=== PATIENT | female | born 1975 | race Asian ===

== ENCOUNTER 2021-12-26 19:41 | Inpatient (IN) ==
[2021-12-26 21:08] LABS: Hematocrit (blood only) 38.3 % (34.1-44.9); Hemoglobin 12.6 g/dl (12.0-16.0); Mean Corpuscular Hgb Conc 32.9 g/dL (32.0-36.0); Mean Corpuscular Volume 85.1 fL (80.0-100.0); Platelet Count 564 K/uL (130-400); RDW Coefficient of Variation 13.3 % (11.5-14.5); RDW Standard Deviation 41.1 fL (36.4-46.3); White Blood Count 13.56 K/ul (4.8-10.8)
[2021-12-26 21:18] LABS: Partial Thromboplastin Time 27.5 Seconds (21.0-31.0); Prothrombin Time 10.4 Seconds (9.0-12.0)
[2021-12-26 21:36] LABS: Albumin Globulin Ratio 1.1 (0.9-2); Albumin Level 4.1 gm/dl (3.4-5.0); BUN Creatinine Ratio 15.2 (10-20); Bilirubin,Total 0.3 mg/dl (0.2-1.0); Calcium 9.1 mg/dl (8.5-10.1); Est GFR (African American) 122.8 ml/min; Est GFR (Non-African American) 105.9 ml/min; Globulin 3.9 gm/dl (2.5-4.0); Potassium 3.5 mmol/L (3.5-5.1)
[2021-12-26] MEDS ORDERED: SODIUM CHLORIDE 0.9% 1000ML 1,000 ML IV ONE (23:42)
--- NOTE | 2021-12-26 23:59 | Emergency Department Note ---
Impression & Plan GI bleed, Colitis Admit to the [facility] ED Provider Note NAME: JOAN MICHAUD AGE: 46 SEX: F ARRIVES VIA: Walk-In INFORMANT: Patient through an repair clerk ED PROVIDER(S): Carol De Luna DO CHIEF COMPLAINT: Bloody stools and left lower quadrant abdominal pain PLAN: Disposition: Admit to the [facility] Condition: Stable MEDICAL DECISION MAKING: This is a 46-year-old female patient who presents to the emergency department with intermittent bloody stools for the past 4 weeks. The patient has since developed increased bloody diarrhea for the past 1 week and now has left lower quadrant abdominal pain. H&H are stable. The patient is tachycardic on physical exam. She received IV crystalloid therapy here in the emergency department. She declined wanting anything for pain. CT scan of the abdomen/pelvis showed colitis of the descending colon and rectosigmoid colon. Patient has no fever or significant leukocytosis to suggest an infectious etiology. This is most likely inflammatory. I discussed the case with the [facility] and they will evaluate the patient for further care. The patient is hemodynamically stable here in the emergency department. Triage Nursing notes reviewed and agree with them. Vital Signs: reviewed and remarkable for tachycardia Differential diagnosis: Hemorrhoidal bleeding, colitis, diverticulitis, anemia ER treatment provided: IV normal saline Diagnostics interpreted by me: Cardiac Monitoring: Sinus tachycardia at 113 Laboratory studies: [See below] [] Imaging studies: As per stat rad CT abdomen pelvis with contrast: Abnormal mucosal thickening and hyperenhancement with pericolonic fat stranding involving the splenic flexure, descending colon and distal rectosigmoid region. Findings are most consistent with inflammatory or infectious colitis. No significant diverticulosis. No evidence for bowel obstruction. No free intraperitoneal fluid or pneumoperitoneum. The liver, gallbladder, pancreas, spleen, adrenal glands and kidneys are unremarkable. The bladder is unremarkable. The uterus and adnexa are grossly unremarkable. The no osseous or significant overlying soft tissue abnormality identified. HPI: 46/F arrives for evaluation of []bloody diarrhea and left lower quadrant abdominal pain. The patient has had intermittent bloody stools for the past 4 weeks that she thought was secondary to hemorrhoids. She had no associated abdominal pain at that time. However over the past 1 to 2 weeks, the bloody stools have increased in frequency to the point now that she is having 2-3 bloody stools per day and now has some left lower quadrant abdominal pain. Last week, the patient took 5 days worth of Levaquin believing this may help the bloody stools as she thought that it could be bacterial in origin. ROS: See above HPI for pertinent positives & negatives. A total of 10 systems reviewed and were otherwise negative. PAST MEDICAL HISTORY:Epilepsy which has resolved according to the patient PAST SURGICAL HISTORY:See Below FAMILY HISTORY:See Below SOCIAL HISTORY: Patient speaks Mandarin Polish; she lives with her HOME MEDICATIONS:None ALLERGIES:Penicillin VITALS:See Below PHYSICAL EXAMINATION: HEENT: Head - normocephalic and atraumatic Pupils are equal, round, and reactive to light. Extraocular eye muscles are intact, and sclera are anicteric. Nose - moist nasal mucosa without discharge. Mouth - moist buccal mucosa. Oropharynx is nonerythematous and there is no tonsillar exudate or edema noted. Neck: Supple; no JVD, nuchal rigidity, cervical lymphadenopathy, or auscultated bruits. Heart: Regular rate and rhythm. There is a normal S1 and S2 with no murmurs, clicks, or gallops appreciated. Lungs: Clear to auscultation bilaterally with no wheezes, rales, or rhonchi. Abdomen: Soft, mild tenderness to palpation in the left lower quadrant, nondi stended with good bowel sounds. There are no palpable pulsatile masses or hepatosplenomegaly. There is no guarding, rigidity, or rebound noted. Extremities: No evidence of cyanosis, clubbing, or edema. There are easily palpable peripheral pulses. Skin: Pale, warm and slightly diaphoretic, with good turgor and no rashes. ED COURSE: Times/Reassessments: 2315: The patient was evaluated in room B 11. A complete history and physical was performed with the help of a [employer] repair clerk. An IV lock had been initiated and labs were drawn as above by protocol. An order was placed for continuous cardiac monitoring. The patient was in a sinus tachycardia at 113. The patient was bolused with a liter of normal saline solution. She will go for CT scan of the abdomen and pelvis. She declined wanting anything for pain. I discussed the case with the [facility] hospitalist and they will evaluate for further management. Carolcelestino De Luna DO Past Med/Surg History Social History Smoking Status: Never smoker Second Hand Exposure: No; Do You Dip or Chew Tobacco: No; Tobacco Cessation Education Requested by Patient: No Hx Alcohol Use: Yes Hx Substance Use: No Preferred Language: Mandarin Polish Communication Ability: Effective Grommet Man Required: No Beliefs That Will Affect Care: None marital status: Current Living Situation: Spouse Other Information That Helps Us Care for You: No Feels Safe at Home: Yes Safety Concerns: Feels Safe At This Time Assistive Devices: None Allergies Allergies Allergy/AdvReac Type Severity Reaction Status Date / Time Penicillins AdvReac Verified 12/27/21 11:02 Home Meds Home Medications Medication Instructions Recorded Confirmed No Known Home Medications 12/27/21 12/27/21 Results & Data (ED) Vital Signs Vital Signs - 24 hr 12/26/21 20:09 12/26/21 20:44 12/26/21 21:00 Temperature 36.8 C Temperature Source Temporal Artery Scan Pulse Rate 133 H Pulse Rate [Apical] 113 H Respiratory Rate 18 20 Respiratory Effort / Characteristics Non-Labored Spontaneous Non-Labored Spontaneous Respiratory Depth Normal Normal Respiratory Pattern Regular Blood Pressure 126/79 Blood Pressure [Left Arm] 123/78 Blood Pressure Mean 94 Blood Pressure Mean [Left Arm] 93 Blood Pressure Position Sitting Pulse Oximetry 97 97 98 Oxygen Delivery Method Room Air Room Air Room Air Sepsis Recent Fever Within 48 Hours No Sepsis New/Unexplained Change in Mental Status No Sepsis Action Taken by Nursing No Action Required 12/26/21 22:00 12/26/21 23:00 12/27/21 01:00 Temperature Temperature Source Pulse Rate Pulse Rate [Apical] 112 H 111 H 109 H Respiratory Rate 20 18 22 Respiratory Effort / Characteristics Non-Labored Spontaneous Respiratory Depth Normal Respiratory Pattern Regular Blood Pressure Blood Pressure [Left Arm] 116/87 132/78 125/63 Blood Pressure Mean Blood Pressure Mean [Left Arm] 96 96 83 Blood Pressure Position Pulse Oximetry 98 97 98 Oxygen Delivery Method Room Air Room Air Room Air Sepsis Recent Fever Within 48 Hours Sepsis New/Unexplained Change in Mental Status Sepsis Action Taken by Nursing 12/27/21 02:14 12/27/21 03:00 12/27/21 04:00 Temperature Temperature Source Pulse Rate Pulse Rate [Apical] 110 H 108 H 106 H Respiratory Rate 20 18 18 Respiratory Effort / Characteristics Respiratory Depth Respiratory Pattern Blood Pressure Blood Pressure [Left Arm] 129/85 123/84 96/76 L Blood Pressure Mean Blood Pressure Mean [Left Arm] 99 97 82 Blood Pressure Position Pulse Oximetry 97 96 97 Oxygen Delivery Method Room Air Room Air Room Air Sepsis Recent Fever Within 48 Hours Sepsis New/Unexplained Change in Mental Status Sepsis Action Taken by Nursing Laboratory Data Result diagrams: 12/27/21 14:26 12/27/21 07:36 Lab Results 12/26/21 12/26/21 12/26/21 Range/Units 20:46 20:46 20:46 WBC 13.56 H (4.8-10.8) K/ul RBC 4.50 (3.93-5.22) M/uL Hgb 12.6 (12.0-16.0) g/dl Hct 38.3 (34.1-44.9) % MCV 85.1 (80.0-100.0) fL MCH 28.0 (25.0-34.0) pg MCHC 32.9 (32.0-36.0) g/dL RDW Std Deviation 41.1 (36.4-46.3) fL RDW Coeff of Gregory 13.3 (11.5-14.5) % Plt Count 564 H (130-400) K/uL MPV 11.0 (9.4-12.3) fL PT 10.4 (9.0-12.0) Seconds INR 1.0 (0.9-1.1) APTT 27.5 (21.0-31.0) Seconds PTT Ratio 1.0 Sodium (136-145) mmol/L Potassium (3.5-5.1) mmol/L Chloride (98-107) mmol/L Carbon Dioxide (21-32) mmol/L Anion Gap (3-11) BUN (6-23) mg/dl Creatinine (0.6-1.2) mg/dl Est Cr Clr Drug Dosing ml/min Est GFR ( Amer) ml/min Est GFR (Non-Af Amer) ml/min BUN/Creatinine Ratio (10-20) Glucose (70-99(Fasting)) mg/dl Calcium (8.5-10.1) mg/dl Total Bilirubin (0.2-1.0) mg/dl AST (13-39) U/L ALT (7-52) U/L Alkaline Phosphatase (34-104) U/L Total Protein (6.0-8.3) gm/dl Albumin (3.4-5.0) gm/dl Globulin (2.5-4.0) gm/dl Albumin/Globulin Ratio (0.9-2) SARS-CoV-2, RNA, NAAT (NEGATIVE) Blood Type O Positive Antibody Screen NEGATIVE 12/26/21 12/27/21 Range/Units 20:46 03:35 WBC (4.8-10.8) K/ul RBC (3.93-5.22) M/uL Hgb (12.0-16.0) g/dl Hct (34.1-44.9) % MCV (80.0-100.0) fL MCH (25.0-34.0) pg MCHC (32.0-36.0) g/dL RDW Std Deviation (36.4-46.3) fL RDW Coeff of Gregory (11.5-14.5) % Plt Count (130-400) K/uL MPV (9.4-12.3) fL PT (9.0-12.0) Seconds INR (0.9-1.1) APTT (21.0-31.0) Seconds PTT Ratio Sodium 136 (136-145) mmol/L Potassium 3.5 (3.5-5.1) mmol/L Chloride 102 (98-107) mmol/L Carbon Dioxide 27 (21-32) mmol/L Anion Gap 7 (3-11) BUN 10 (6-23) mg/dl Creatinine 0.66 (0.6-1.2) mg/dl Est Cr Clr Drug Dosing 104.0 ml/min Est GFR ( Amer) 122.8 ml/min Est GFR (Non-Af Amer) 105.9 ml/min BUN/Creatinine Ratio 15.2 (10-20) Glucose 103 H (70-99(Fasting)) mg/dl Calcium 9.1 (8.5-10.1) mg/dl Total Bilirubin 0.3 (0.2-1.0) mg/dl AST 17 (13-39) U/L ALT 22 (7-52) U/L Alkaline Phosphatase 99 (34-104) U/L Total Protein 8.0 (6.0-8.3) gm/dl Albumin 4.1 (3.4-5.0) gm/dl Globulin 3.9 (2.5-4.0) gm/dl Albumin/Globulin Ratio 1.1 (0.9-2) SARS-CoV-2, RNA, NAAT NEGATIVE (NEGATIVE) Blood Type Antibody Screen Administered Medications Acetaminophen (Acetaminophen 325 Mg Tab) 650 mg PO Q4H PRN PRN Reason: Pain or Fever Stop: 01/26/22 05:14 Last Admin: 12/27/21 17:30 Dose: 650 mg Documented By: CARMITA Dextrose/Sodium Chloride (D5w And 1/2nss) 1,000 mls @ 125 mls/hr IV .Q8H KARLIE Stop: 01/26/22 05:14 Last Admin: 12/27/21 14:57 Dose: 125 mls/hr Documented By: Infusion: 12/27/21 13:38 Dose: 0 mls/hr Documented By: Admin: 12/27/21 05:38 Dose: 125 mls/hr Documented By: CARLENE Discontinued Medications Sodium Chloride (Nss 1000ml) 1,000 mls @ 999 mls/hr IV .Q1H1M ONE Stop: 12/27/21 00:42 Last Infusion: 12/27/21 01:49 Dose: 0 mls/hr Documented By: Admin: 12/27/21 00:21 Dose: 999 mls/hr Documented By: CARLENE Sodium Chloride (Nss) 500 mls @ 125 mls/hr IV .Q4H KARLIE Stop: 01/26/22 02:59 Last Infusion: 12/27/21 05:25 Dose: 0 mls/hr Documented By: Admin: 12/27/21 03:15 Dose: 125 mls/hr Documented By: CARLENE Potassium Chloride (K Timothy / Wtr) 10 meq in 100 mls @ 100 mls/hr IV Q1H KARLIE Stop: 12/27/21 17:59 Last Admin: 12/27/21 18:28 Dose: 75 mls/hr Documented By: Infusion: 12/27/21 18:25 Dose: 0 mls/hr Documented By: Admin: 12/27/21 16:30 Dose: 75 mls/hr Documented By: Infusion: 12/27/21 16:28 Dose: 0 mls/hr Documented By: Admin: 12/27/21 14:51 Dose: 100 mls/hr Documented By: PEG Ioversol (Optiray 300 100ml) 100 ml IV ONCE ONE Stop: 12/27/21 00:15 Last Admin: 12/27/21 00:14 Dose: 93 ml Documented By: BOZENA Imaging Data Radiologist's Impression: Abdomen/Pelvis CT 12/26/21 23:34 CT abd pelvis IV con only CLINICAL HISTORY: eval for diverticulitis TECHNIQUE: Helical axial images of the abdomen and pelvis were obtained and displayed. Automated dose lowering techniques and/or adjustment according to patient size were utilized for this exam. This exam was performed with intravenous contrast. CT DOSE: 383.39 mGy.cm COMPARISON: None available at the time of this dictation. FINDINGS: Lower chest: No acute abnormality Liver: Unremarkable. No focal lesions are seen. Gallbladder and biliary tree: No calcified gallstones. Normal caliber wall. No intra- or extrahepatic biliary ductal dilation. Pancreas: Unremarkable, no focal lesions. Spleen: Unremarkable. Adrenals: Unremarkable. Kidneys and ureters: Unremarkable. Bladder: Unremarkable. Reproductive organs: A tampon is seen. Bowel: There is thickening of the descending and sigmoid colon. Liquid contents are seen throughout the colon. The appendix is normal. Lymph nodes Retroperitoneal: Unremarkable. Pelvic: Unremarkable. Mesenteric: Subcentimeter lymph nodes are noted. These are more prominent in the left. Peritoneum: Mild fat stranding is seen in the region of the left hemicolon. No pneumoperitoneum is seen. No abnormal fluid collections. Vessels: Unremarkable. Abdominal wall: Unremarkable. Bones: Unremarkable. IMPRESSION: Findings are compatible with colitis of the descending and sigmoid colon, which may be infectious or inflammatory. No significant diverticulosis is seen. No fluid collection or pneumoperitoneum is noted. ACT 112: Negative or not required by law. Electronically signed by: Eder Marinelli M.D. 12/27/2021 8:12 AM Discharge Plan Visit Data Chief Complaint: Rectal Bleed Stated Complaint: ANAL BLEEDING ED Provider: Carol De Luna Discharge Problem: GI bleed, Colitis Patient Disposition: Admitted As Inpatient Discharge Instructions Interventions: ED Discharge Assessment Last Done: 12/27/21 05:16 : GI bleed Qualifiers: GI bleed type/associated pathology: unspecified gastrointestinal hemorrhage type Qualified Code(s): K92.2 - Gastrointestinal hemorrhage, unspecified
[2021-12-27] MEDS ORDERED: OPTIRAY 300 100mL IV ONE (00:14)
[2021-12-27] MEDS ORDERED: SODIUM CHLORIDE 0.9% 500 ML IV SCH (03:00)
[2021-12-27] MEDS ORDERED: NITROGLYCERIN SL 0.4 MG/TAB TAB SL PRN (05:15)
[2021-12-27] MEDS ORDERED: MoRPHine SULFATE 4 MG/ML 1 ML CARP\\VIAL IV PRN (05:15)
[2021-12-27] MEDS ORDERED: ONDANSETRON INJ 2 MG/ML 2 ML VIAL IV PRN (05:15)
[2021-12-27] MEDS: D5W AND 1/2NSS 1,000 ML IV SCH ×3 (05:38→23:29)
--- NOTE | 2021-12-27 07:10 | History and Physical Report ---
DATE OF ADMISSION: 12/27/2021. CHIEF COMPLAINT: Rectal bleed. 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 The patient says since the last 4 weeks she is having rectal bleed and it is getting progressively worse, now every 4-5 hours. She has been getting abdominal pain of about 6/10 in severity then she has to move her bowels. After moving the bowels, the pain decreases to 2/10 and it has been ongoing for last 4 weeks. She is currently also having her menstrual periods 3rd day. Denies any nausea or vomiting. No fevers, but lately she is feeling cold. Appetite is down. No recent weight gain or weight loss. Denies any chest pain. When she came to the hospital, she felt short of breath with exertion attributes it to not moving much for last few weeks.. She states her both legs are also sore because she is not ambulating much since the last few weeks. Denies any headache, no dizziness, no blurred visions, no earache, no runny nose, no sore throat, no cough, no difficulty swallowing. No neck pain, no back pain. The patient says she has similar episode several years ago and she was told she has internal hemorrhoids. In last March and April also, she had rectal bleeding and and assumed her hemorrhoids. No family history of similar kind of symptoms. No recent travel.Since her symptoms not improving, she took the antibiotic norfloxacin 5 days last week, but that did not help with her symptoms. ALLERGIES: No known drug allergies. PAST MEDICAL HISTORY: Eczema MEDICATIONS: Multivitamins. FAMILY HISTORY: Significant for mother has hypertension. SOCIAL HISTORY: No smoking. Occasional beer. REVIEW OF SYSTEMS: As per HPI. Rest of review of systems is negative. PHYSICAL EXAMINATION: GENERAL: The patient is of moderate build, not in acute distress. VITAL SIGNS: Temperature 36.8, pulse 106, respiratory rate 18, blood pressure 196/76, oxygen 97% on room air. HEENT: Pupils equal, round and reactive to light. Oral mucosa moist. NECK: No JVD, no neck masses. CARDIOVASCULAR: S1 and S2 heard. Regular rate and rhythm. No murmur, no gallop. RESPIRATORY SYSTEM: Normal AP diameter. No accessory muscle use. No wheezing, no crackles. ABDOMEN: Soft, bowel sounds present, nontender, no distention. CENTRAL NERVOUS SYSTEM: Alert and awake. Obeys simple commands. Moves her extremities. EXTREMITIES: No edema, no erythema. LABORATORY DATA: WBC 13.5, hemoglobin 12.6, hematocrit 38.3, platelets 564. PT 10.4, INR 1, APTT 27.5. Sodium 136, potassium 3.5, chloride 102, bicarbonate 27, BUN 10, creatinine 0.6, serum glucose 103, calcium 9.1, total bilirubin 0.3, AST 17, ALT 22, alkaline phosphatase 99. SARS-CoV-2 rapid test negative. IMAGING DATA: CT of abdomen and pelvis, preliminary report, showing significant inflammatory or infectious colitis in the descending colon and distal rectosigmoid region. ASSESSMENT AND PLAN: This is a 46-year-old female who presents with rectal bleeding going for last 4 weeks. CAT scan showing colitis in the descending colon and rectosigmoid region, inflammatory or infectious. The patient took antibiotic, norfloxacin for 5 days last week that did not help her symptoms. We will do a stool PCR panel. Check the ESR levels, CRP levels. Will keep her n.p.o., IV fluids, IV antiemetics, IV pain medications p.r.n. Consult GI in the a.m. for further recommendations.Patient want to think about signing Blood consent form. Deep venous thrombosis prophylaxis: Sequential compression devices. DISPOSITION: Closely monitor in the [facility]. Job ID: [id number] [facility]
[2021-12-27 07:51] LABS: Basophils # (auto) 0.04 K/uL (0-0.2); Basophils % (auto) 0.4 %; Eosinophils # (auto) 0.44 K/uL (0-0.50); Eosinophils % (auto) 4.8 %; Hematocrit (blood only) 30.6 % (34.1-44.9); Hemoglobin 10.2 g/dl (12.0-16.0); Immature Granulocytes # (auto) 0.04 K/uL (0.00-0.02); Immature Granulocytes % (auto) 0.4 %; Lymphocytes # (auto) 2.16 K/uL (1.2-3.4); Lymphocytes % (auto) 23.6 %; Mean Corpuscular Hemoglobin 28.5 pg (25.0-34.0); Mean Corpuscular Hgb Conc 33.3 g/dL (32.0-36.0); Mean Corpuscular Volume 85.5 fL (80.0-100.0); Mean Platelet Volume 10.6 fL (9.4-12.3); Monocytes # (auto) 1.14 K/uL (0.24-0.82); Monocytes % (auto) 12.4 %; Neutrophils # (auto) 5.34 K/uL (1.4-6.5); Neutrophils % (auto) 58.4 %; Platelet Count 411 K/uL (130-400); RDW Coefficient of Variation 13.2 % (11.5-14.5); RDW Standard Deviation 41.3 fL (36.4-46.3); Red Blood Count 3.58 M/uL (3.93-5.22); White Blood Count 9.16 K/ul (4.8-10.8)
--- NOTE | 2021-12-27 08:14 | CT Scan Report ---
CT abd pelvis IV con only CLINICAL HISTORY: eval for diverticulitis TECHNIQUE: Helical axial images of the abdomen and pelvis were obtained and displayed. Automated dose lowering techniques and/or adjustment according to patient size were utilized for this exam. This e xam was performed with intravenous contrast. CT DOSE: 383.39 mGy.cm COMPARISON: None available at the time of this dictation. FINDINGS: Lower chest: No acute abnormality Liver: Unremarkable. No focal lesions are seen. Gallbladder and biliary tree: No calcified gallstones. Normal caliber wall. No intra- or extrahepatic biliary ductal dilation. Pancreas: Unremarkable, no focal lesions. Spleen: Unremarkable. Adrenals: Unremarkable. Kidneys and ureters: Unremarkable. Bladder: Unremarkable. Reproductive organs: A tampon is seen. Bowel: There is thickening of the descending and sigmoid colon. Liquid contents are seen throughout t he colon. The appendix is normal. Lymph nodes Retroperitoneal: Unremarkable. Pelvic: Unremarkable. Mesenteric: Subcentimeter lymph nodes are noted. These are more prominent in the left. Peritoneum: Mild fat stranding is seen in the region of the left hemicolon. No pneumoperitoneum is se en. No abnormal fluid collections. Vessels: Unremarkable. Abdominal wall: Unremarkable. Bones: Unremarkable. IMPRESSION: Findings are compatible with colitis of the descending and sigmoid colon, which may be infectious or inflammatory. No significant diverticulosis is seen. No fluid collection or pneumoperitoneum is noted . ACT 112: Negative or not required by law. Electronically signed by: Eder Marinelli M.D. 12/27/2021 8:12 AM
[2021-12-27 08:26] LABS: C Reactive Protein 8.26 mg/dl (0-0.5); Calcium 7.7 mg/dl (8.5-10.1); Creatinine Clr Calc Pharmacy 149.3 ml/min; Est GFR (African American) 138.3 ml/min; Est GFR (Non-African American) 119.3 ml/min; Potassium 3.1 mmol/L (3.5-5.1)
--- NOTE | 2021-12-27 08:57 | Gastrointestinal Consultation ---
Date of Consultation December 27, 2021 Assessment & Plan (1) Rectal bleed: 46 year old female with abd pain, cramping, fecal urgency/frequency and rectal bleeding x 4 weeks, colitis on imagign and downtrending HGB. DDX: ischemic colitis vs infectios vs inflammatory vs hemorrhiods vs polyp vs lesion vs other NPO Tap water enema stat, discussed bedside with nursing Flex Sig today Trend H&H Transfuse PRN Monitor/document output Thank you for allowing us to participate in the care of this patient. Please c all with any acute changes, questions or concerns. Please see addendum below with additional recommendation from my supervising physician. Supervising Physician Co-Signing Physician Notes I performed a history and physical examination of the patient today, including specifically on physical exam - soft abdomen. I have discussed the patient's management with the advanced practitioner. Please refer to the nurse practitioner's note for the documented findings and plan of care. Seems like hemorrhoidal bleeding. Needs FLex Sig in view of CT scan images., History of Present Illness Reason for Consultation: rectal bleeding Requesting Physician: Kanu Attending Physician: Crow Bobby MD History of Present Illness 46 year old female without medical history admitted through the ED w/ pain, rectal bleeding. GI asked to evaluate, pt was seen, chart reviewed. at bedside. Translation services used. Notes that for at least 4 weeks she has had significant issues with her bowels. Abd pain cramping, frequency, urgency and rectal bleeding. She notes her bowel movements have been mixed with blood and coated in blood. She also notes that she has rectal pain, which she attributes to a hemorrhoid she has had for >10 years. She notes that sometimes she thinks she experiences prolapse. Will have unbearable pain after a BM and have to manually assist. suggests that this has been worse over the last 4 weeks as well. Has never had a colonoscopy Is agreeable to flex sig today CTAP 2021: Findings are compatible with colitis of the descending and sigmoid colon, which may be infectious or inflammatory. No significant diverticulosis is seen. No fluid collection or pneumoperitoneum is noted. Allergies Allergy/AdvReac Type Severity Reaction Status Date / Time Penicillins AdvReac Verified 12/27/21 11:02 Patient History Social History Smoking Status: Never smoker Preferred Language: Yi Communication Ability: Effective marital status: Feels Safe at Home: Yes Assistive Devices: None Review of Systems Review of Systems: All systems reviewed & are unremarkable except as noted in HPI & below Physical Exam Constitutional: WD/WN, vitals as above Respiratory: normal respiratory effort; no respiratory distress and no labored breathing Cardiovascular: Rate/Rhythm: regular rate Gastrointestinal (Abdomen): normal bowel sounds, soft, nontender, no hepatosplenomegaly Skin: no rashes, warm and dry Results & Data ([facility]) Vital Signs (Past 12 Hours) Vital Signs Pulse Resp BP Pulse Ox O2 Del Method 12/27/21 05:40 96 H 16 103/67 94 12/27/21 05:00 107 H 18 124/75 95 Room Air 12/27/21 04:00 106 H 18 96/76 L 97 Room Air 12/27/21 03:00 108 H 18 123/84 96 Room Air 12/27/21 02:14 110 H 20 129/85 97 Room Air 12/27/21 01:00 109 H 22 125/63 98 Room Air 12/26/21 23:00 111 H 18 132/78 97 Room Air 12/26/21 22:00 112 H 20 116/87 98 Room Air 12/26/21 21:00 113 H 20 123/78 98 Room Air Laboratory Results 12/27/21 12/27/21 12/27/21 Range/Units 07:36 07:36 07:36 WBC 9.16 (4.8-10.8) K/ul RBC 3.58 L (3.93-5.22) M/uL Hgb 10.2 L (12.0-16.0) g/dl Hct 30.6 L (34.1-44.9) % MCV 85.5 (80.0-100.0) fL MCH 28.5 (25.0-34.0) pg MCHC 33.3 (32.0-36.0) g/dL RDW Std Deviation 41.3 (36.4-46.3) fL RDW Coeff of Gregory 13.2 (11.5-14.5) % Plt Count 411 H (130-400) K/uL MPV 10.6 (9.4-12.3) fL Immature Gran % (Auto) 0.4 % Neut % (Auto) 58.4 % Lymph % (Auto) 23.6 % [place] % (Auto) 12.4 % Eos % (Auto) 4.8 % Baso % (Auto) 0.4 % Neut # (Auto) 5.34 (1.4-6.5) K/uL Lymph # (Auto) 2.16 (1.2-3.4) K/uL [place] # (Auto) 1.14 H (0.24-0.82) K/uL Eos # (Auto) 0.44 (0-0.50) K/uL Baso # (Auto) 0.04 (0-0.2) K/uL Immature Gran # (Auto) 0.04 H (0.00-0.02) K/uL ESR 39 H (0-20) mm/hr PT (9.0-12.0) Seconds INR (0.9-1.1) APTT (21.0-31.0) Seconds PTT Ratio Sodium 137 (136-145) mmol/L Potassium 3.1 L (3.5-5.1) mmol/L Chloride 107 (98-107) mmol/L Carbon Dioxide 25 (21-32) mmol/L Anion Gap 5 (3-11) BUN 6 (6-23) mg/dl Creatinine 0.46 L (0.6-1.2) mg/dl Est Cr Clr Drug Dosing 149.3 ml/min Est GFR ( Amer) 138.3 ml/min Est GFR (Non-Af Amer) 119.3 ml/min BUN/Creatinine Ratio 13.0 (10-20) Glucose 132 H (70-99(Fasting)) mg/dl Calcium 7.7 L (8.5-10.1) mg/dl Magnesium 2.0 (1.7-2.4) mg/dl Total Bilirubin (0.2-1.0) mg/dl AST (13-39) U/L ALT (7-52) U/L Alkaline Phosphatase (34-104) U/L C-Reactive Protein 8.26 H (0-0.5) mg/dl Total Protein (6.0-8.3) gm/dl Albumin (3.4-5.0) gm/dl Globulin (2.5-4.0) gm/dl Albumin/Globulin Ratio (0.9-2) SARS-CoV-2, RNA, NAAT (NEGATIVE) Blood Type Antibody Screen 12/27/21 12/26/21 12/26/21 Range/Units 03:35 20:46 20:46 WBC (4.8-10.8) K/ul RBC (3.93-5.22) M/uL Hgb (12.0-16.0) g/dl Hct (34.1-44.9) % MCV (80.0-100.0) fL MCH (25.0-34.0) pg MCHC (32.0-36.0) g/dL RDW Std Deviation (36.4-46.3) fL RDW Coeff of Gregory (11.5-14.5) % Plt Count (130-400) K/uL MPV (9.4-12.3) fL Immature Gran % (Auto) % Neut % (Auto) % Lymph % (Auto) % [place] % (Auto) % Eos % (Auto) % Baso % (Auto) % Neut # (Auto) (1.4-6.5) K/uL Lymph # (Auto) (1.2-3.4) K/uL [place] # (Auto) (0.24-0.82) K/uL Eos # (Auto) (0-0.50) K/uL Baso # (Auto) (0-0.2) K/uL Immature Gran # (Auto) (0.00-0.02) K/uL ESR (0-20) mm/hr PT 10.4 (9.0-12.0) Seconds INR 1.0 (0.9-1.1) APTT 27.5 (21.0-31.0) Seconds PTT Ratio 1.0 Sodium 136 (136-145) mmol/L Potassium 3.5 (3.5-5.1) mmol/L Chloride 102 (98-107) mmol/L Carbon Dioxide 27 (21-32) mmol/L Anion Gap 7 (3-11) BUN 10 (6-23) mg/dl Creatinine 0.66 (0.6-1.2) mg/dl Est Cr Clr Drug Dosing 104.0 ml/min Est GFR ( Amer) 122.8 ml/min Est GFR (Non-Af Amer) 105.9 ml/min BUN/Creatinine Ratio 15.2 (10-20) Glucose 103 H (70-99(Fasting)) mg/dl Calcium 9.1 (8.5-10.1) mg/dl Magnesium (1.7-2.4) mg/dl Total Bilirubin 0.3 (0.2-1.0) mg/dl AST 17 (13-39) U/L ALT 22 (7-52) U/L Alkaline Phosphatase 99 (34-104) U/L C-Reactive Protein (0-0.5) mg/dl Total Protein 8.0 (6.0-8.3) gm/dl Albumin 4.1 (3.4-5.0) gm/dl Globulin 3.9 (2.5-4.0) gm/dl Albumin/Globulin Ratio 1.1 (0.9-2) SARS-CoV-2, RNA, NAAT NEGATIVE (NEGATIVE) Blood Type Antibody Screen 12/26/21 12/26/21 Range/Units 20:46 20:46 WBC 13.56 H (4.8-10.8) K/ul RBC 4.50 (3.93-5.22) M/uL Hgb 12.6 (12.0-16.0) g/dl Hct 38.3 (34.1-44.9) % MCV 85.1 (80.0-100.0) fL MCH 28.0 (25.0-34.0) pg MCHC 32.9 (32.0-36.0) g/dL RDW Std Deviation 41.1 (36.4-46.3) fL RDW Coeff of Gregory 13.3 (11.5-14.5) % Plt Count 564 H (130-400) K/uL MPV 11.0 (9.4-12.3) fL Immature Gran % (Auto) % Neut % (Auto) % Lymph % (Auto) % [place] % (Auto) % Eos % (Auto) % Baso % (Auto) % Neut # (Auto) (1.4-6.5) K/uL Lymph # (Auto) (1.2-3.4) K/uL [place] # (Auto) (0.24-0.82) K/uL Eos # (Auto) (0-0.50) K/uL Baso # (Auto) (0-0.2) K/uL Immature Gran # (Auto) (0.00-0.02) K/uL ESR (0-20) mm/hr PT (9.0-12.0) Seconds INR (0.9-1.1) APTT (21.0-31.0) Seconds PTT Ratio Sodium (136-145) mmol/L Potassium (3.5-5.1) mmol/L Chloride (98-107) mmol/L Carbon Dioxide (21-32) mmol/L Anion Gap (3-11) BUN (6-23) mg/dl Creatinine (0.6-1.2) mg/dl Est Cr Clr Drug Dosing ml/min Est GFR ( Amer) ml/min Est GFR (Non-Af Amer) ml/min BUN/Creatinine Ratio (10-20) Glucose (70-99(Fasting)) mg/dl Calcium (8.5-10.1) mg/dl Magnesium (1.7-2.4) mg/dl Total Bilirubin (0.2-1.0) mg/dl AST (13-39) U/L ALT (7-52) U/L Alkaline Phosphatase (34-104) U/L C-Reactive Protein (0-0.5) mg/dl Total Protein (6.0-8.3) gm/dl Albumin (3.4-5.0) gm/dl Globulin (2.5-4.0) gm/dl Albumin/Globulin Ratio (0.9-2) SARS-CoV-2, RNA, NAAT (NEGATIVE) Blood Type O Positive Antibody Screen NEGATIVE
[2021-12-27] MEDS ORDERED: POTASSIUM CHLORIDE / WTR 10 MEQ/100 ML PLCT IV SCH (11:00)
[2021-12-27] MEDS ORDERED: ATROPINE SULFATE 0.1 MG/ML 10ML SYR IV PRN (11:10)
[2021-12-27] MEDS ORDERED: ePHEDrine sulfate 50 MG/ML AMP IV PRN (11:10)
--- NOTE | 2021-12-27 11:10 | Anesthesiology Consultation ---
Date of Service December 27, 2021 Assessment & Plan Chart Review Chart Review: Acceptable Risk for Surgery and Patient NOT seen in Pre Admission Testing Consults Requested none ASA [id number] Proposed Anesthesia Anesthesia Type: MAC Risk / Benefits Reviewed With: PT / POA / Parent / Guardian, Accepts Plan and Informed Consent Obtained History Surgery Operation Date: 12/27/21 15:00 Proposed Procedures p Flexible Sigmoidoscopy Dr Moni Montenegro MD Operation Date: 12/27/21 16:30 Proposed Procedures p Flexible Sigmoidoscopy Dr Moni Montenegro MD Height/Weight Height: 5 ft 2.99 in Weight: 76.1 kg Allergies Allergy/AdvReac Type Severity Reaction Status Date / Time Penicillins AdvReac Verified 12/27/21 11:02 Medications Active Medications Generic Name Dose Route Start Last Admin Trade Name Freq PRN Reason Stop Dose Admin Dextrose/Sodium Chloride 1,000 mls @ 125 mls/hr 12/27/21 05:15 12/27/21 05:38 D5w And 1/2nss IV 01/26/22 05:14 125 mls/hr .Q8H KARLIE Administration NPO Date Last Intake of Fluids: 12/26/21 Time Last Intake of Fluids: 20:00 Date Last Intake of Solids: 12/26/21 Time Last Intake of Solids: 20:00 Exercise / Class Metabolic Activity II 4-5 Yardwork/Stairs/Walk up hill Past Anesthesia History No Hx of Anesthesia Complications and No Family Hx of Anesthesia Complications History of PONV No Hx of PONV and No Hx of Motion Sickness Social History Smoking Status: Never smoker Physical Exam Vital Signs Last Vital Signs Temp 36.8 C 12/26/21 20:09 Pulse 96 H 12/27/21 05:40 Resp 16 12/27/21 05:40 BP 103/67 12/27/21 05:40 Pulse Ox 94 12/27/21 05:40 O2 Del Method 12/27/21 05:00 Constitutional + obese ENMT Mouth: no dentition abnormality Thyromental Distance: < 3.5 Finger Breadths Mallampati Class: II Neck normal visual inspection and trachea midline; neck extension not limited Respiratory normal respiratory effort Auscultation: lungs clear to auscultation bilaterally Cardiovascular Rate/Rhythm: regular rate and regular rhythm Heart Sounds: no murmur Musculoskeletal Spine: normal cervical ROM Extremities: full ROM of extremities Neurologic moves all extremities Motor/Sensory: no sensory deficit Psychiatric Orientation: alert and oriented x 3 Testing Laboratory Results 12/27/21 07:36 12/27/21 07:36 PT 10.4 Seconds (9.0-12.0) 12/26/21 20:46 INR 1.0 (0.9-1.1) 12/26/21 20:46 APTT 27.5 Seconds (21.0-31.0) 12/26/21 20:46 Blood Type O Positive 12/26/21 20:46 Antibody Screen NEGATIVE 12/26/21 20:46
[2021-12-27] MEDS ORDERED: LIDOCAINE 2% MPF LOCAL 5 ML VIAL INFIL ONE (11:40)
[2021-12-27] MEDS ORDERED: PROPOFOL IV EMULSION 10 MG/ML 20 ML VIAL IV ONE (11:40)
--- NOTE | 2021-12-27 12:40 | Anesthesiology Progress Note ---
Date of Service December 27, 2021 Anesthesia Post Procedure Vital Signs Vital Signs: Temp Pulse Pulse Resp BP BP Pulse Ox 12/27/21 11:05 37 C 102 H 18 120/72 97 12/27/21 05:40 96 H 16 103/67 94 12/27/21 05:00 107 H 18 124/75 95 12/27/21 04:00 106 H 18 96/76 L 97 12/27/21 03:00 108 H 18 123/84 96 12/27/21 02:14 110 H 20 129/85 97 12/27/21 01:00 109 H 22 125/63 98 12/26/21 23:00 111 H 18 132/78 97 12/26/21 22:00 112 H 20 116/87 98 12/26/21 21:00 113 H 20 123/78 98 12/26/21 20:44 97 12/26/21 20:09 36.8 C 133 H 18 126/79 97 O2 Del Method 12/27/21 11:05 Room Air 12/27/21 05:40 12/27/21 05:00 Room Air 12/27/21 04:00 Room Air 12/27/21 03:00 Room Air 12/27/21 02:14 Room Air 12/27/21 01:00 Room Air 12/26/21 23:00 Room Air 12/26/21 22:00 Room Air 12/26/21 21:00 Room Air 12/26/21 20:44 Room Air 12/26/21 20:09 Room Air Pain Intensity Abdomen: Pain Intensity: 3 Transfer of Care Handoff Completed per policy Notes Mental Status: alert / awake / arousable Patient Amnestic to Procedure: Yes Nausea / Vomiting: adequately controlled Pain: adequately controlled Airway Patency, RR, SpO2: stable & adequate BP & HR: stable & adequate Hydration State: stable & adequate Anesthetic Complications: no major complications apparent
--- NOTE | 2021-12-27 12:40 | GI REPORT ---
Patient Name: Rebeca Michel Procedure Date: 12/27/2021 11:55 AM Date of : 1975 Admit Type: Inpatient Age: 46 Gender: Female Attending MD: Tyler Montenegro MD Procedure: Colonoscopy Providers: Tyler Montenegro MD Referring MD: Crow Bobby Md Indications: Rectal bleeding, Abnormal CT of the GI tract Medicines: Propofol per Anesthesia Complications: No immediate complications. Estimated Blood Loss: Estimated blood loss: none. Procedure: Pre-Anesthesia Assessment: - Prior to the procedure, a History and Physical was performed, and patient medications, allergies and sensitivities were reviewed. The patient's tolerance of previous anesthesia was reviewed. - The risks and benefits of the procedure and the sedation options and risks were discussed with the patient. All questions were answered and informed consent was obtained. - Patient identification and proposed procedure were verified prior to the procedure by the physician and the nurse. The procedure was verified in the procedure room. - Pre-procedure physical examination revealed no contraindications to sedation. After I obtained informed consent, the scope was passed under direct vision. Throughout the procedure, the patient's blood pressure, pulse, and oxygen saturations were monitored continuously. The Colonoscope was introduced through the anus and advanced to the ileocecal valve. After I obtained informed consent, the scope was passed under direct vision. Throughout the procedure, the patient's blood pressure, pulse, and oxygen saturations were monitored continuously.The colonoscopy was performed without difficulty. The patient tolerated the procedure well. The quality of the bowel preparation was fair. Findings: The perianal exam findings include thrombosed external hemorrhoids. Normal mucosa was found in the transverse colon, in the ascending colon and in the cecum. Diffuse moderate inflammation characterized by altered vascularity, erosions, erythema, friability and granularity was found from rectum to splenic flexure. Biopsies were taken with a cold forceps for histology. Verification of patient identification for the specimen was done by the physician and nurse using the patient's name and date. Fluid aspiration for bacterial cultures and Clostridium difficile was performed. Impression: - Thrombosed external hemorrhoids found on perianal exam. - Left sided colitis. Biopsied. Fluid aspiration performed. Recommendation: - Return patient to [facility] for ongoing care. - Await pathology results. - Based on infectious panel will decide about therapy, if negative may need Steroids. - Refer to a surgeon to treat the thrombosed hemorrhoids now. - Follow up in GI office as OP. Tyler Montenegro MD 12/27/2021 12:39:35 PM This report has been signed electronically. Note Initiated On: 12/27/2021 11:55 AM Number of Addenda: 0 I attest to the content of the Intraoperative Record and orders documented therein, exceptions below {[id number]}
[2021-12-27 14:29] LABS: Adenovirus F 40/41 PCR Not Detected (NotDetected); Astrovirus PCR Not Detected (NotDetected); Campylobacter PCR Not Detected (NotDetected); Clostridium diff Toxin A/B PCR Not Detected (NotDetected); Cryptosporidium PCR Not Detected (NotDetected); Cyclospora cayetanensis PCR Not Detected (NotDetected); Entamoeba histolytica PCR Not Detected (NotDetected); Enteroaggregative E.coli(EAEC) Not Detected (NotDetected); Enteropathogenic E.coli (EPEC) Not Detected (NotDetected); Enterotoxigenic E.coli (ETEC) Not Detected (NotDetected); Giardia lamblia PCR Not Detected (NotDetected); Norovirus GI/GII PCR Not Detected (NotDetected); Plesiomonas shigelloides PCR Not Detected (NotDetected); Rotavirus A PCR Not Detected (NotDetected); Salmonella PCR Not Detected (NotDetected); Sapovirus PCR Not Detected (NotDetected); Shiga-like Toxin E.coli (STEC) Not Detected (NotDetected); Shigella/Enteroinvasive E.coli Not Detected (NotDetected); Vibrio cholerae PCR Not Detected (NotDetected); Vibrio species PCR Not Detected (NotDetected); Yersinia enterocolitica PCR Not Detected (NotDetected)
[2021-12-27 14:47] LABS: Hematocrit (blood only) 32.2 % (34.1-44.9); Hemoglobin 10.2 g/dl (12.0-16.0)
[2021-12-27] MEDS: POTASSIUM CHLORIDE / WTR 10 MEQ/100 ML PLCT IV SCH ×3 (14:51→18:28)
[2021-12-27] MEDS: ACETAMINOPHEN 325 MG TAB PO PRN (17:30)
--- NOTE | 2021-12-27 18:07 | Hospitalist Progress Note ---
Date of Service December 27, 2021 Assessment & Plan (1) Rectal bleed: Plan: This is a 46-year-old female who presents with rectal bleeding going for last 4 weeks. CAT scan showing colitis in the descending colon and rectosigmoid region, inflammatory or infectious. The patient took antibiotic, norfloxacin for 5 days last week that did not help her symptoms. Stool PCR panel - negative ESR, CRP levels - elevated at 39 and 8.26 respectively Will keep her n.p.o., IV fluids, IV antiemetics, IV pain medications p.r.n. GI consulted s/p flex sig Findings: The perianal exam findings include thrombosed external hemorrhoids. Normal mucosa was found in the transverse colon, in the ascending colon and in the cecum. Diffuse moderate inflammation characterized by altered vascularity, erosions, erythema, friability and granularity was found from rectum to splenic flexure. Biopsies were taken with a cold forceps for histology. Verification of patient identification for the specimen was done by the physician and nurse using the patient's name and date. Fluid aspiration for bacterial cultures and Clostridium difficile was performed. Impression: - Thrombosed external hemorrhoids found on perianal exam. - Left sided colitis. Biopsied. Fluid aspiration performed. Recommendation: - Return patient to [facility] for [facility] care. - Await pathology results. - Based on infectious panel will decide about therapy, if negative may need Steroids. - Refer to a surgeon to treat the thrombosed hemorrhoids now. - Follow up in GI office as OP. Surgical service consulted - eval pending Monitor H&H and electrolytes 12/27 6PM - pt developed fever 38C, will start empiric Abx (cipro + flagyl) Discussed w/ Dr. Montenegro, also will start solumedrol IV Patient want to think about signing Blood consent form. DVT prophylaxis: SCDs Admission and Anticipated Discharge Date Admission Date: December 27, 2021 Subjective Pt seen in follow up of GI bleed Underwent flex sig w/ GI earlier today She is currently lying in bed, in no distress, reports some abdominal discomfort Patient's at the bedside Patient speaks Mandarin, used dynamotor repairer on iPad Denies chest pain shortness of breath nausea vomiting No fevers or chills, however states that now she feels warm Currently she is still in ED , plan to transfer to room 281 Review of Systems Review of Systems: All systems reviewed & are unremarkable except as noted in Subjective Physical Exam Physical Exam: GENERAL: The patient is of moderate build, not in acute distress. HEENT: NC/AT. EOMI, Pupils equal, round and reactive to light. Oral mucosa moist. NECK: No JVD, no neck masses. CARDIOVASCULAR: S1 and S2 heard. Regular rate and rhythm. No murmur, no gallop. RESPIRATORY: Normal AP diameter. No accessory muscle use. No wheezing, no crackles. ABDOMEN: Soft, bowel sounds present, nontender, no distention. NEURO: Alert and awake. Answers appropriately. Obeys simple commands. Moves her extremities. EXTREMITIES: No edema, no erythema. Results & Data Results & Data ([facility]) Vital Signs (Past 12 Hours) Vital Signs Temp Pulse Resp BP Pulse Ox O2 Del Method 12/27/21 17:22 38.0 C H 101 H 18 109/74 97 12/27/21 16:49 37.4 C 12/27/21 13:08 107 H 16 116/75 99 Room Air 12/27/21 12:53 102 H 16 129/69 99 Room Air 12/27/21 12:38 106 H 16 110/71 98 Room Air 12/27/21 11:05 37 C 102 H 18 120/72 97 Room Air Laboratory Results 12/27/21 12/27/21 12/27/21 Range/Units 14:26 12:23 07:36 WBC (4.8-10.8) K/ul RBC (3.93-5.22) M/uL Hgb 10.2 L (12.0-16.0) g/dl Hct 32.2 L (34.1-44.9) % MCV (80.0-100.0) fL MCH (25.0-34.0) pg MCHC (32.0-36.0) g/dL RDW Std Deviation (36.4-46.3) fL RDW Coeff of Gregory (11.5-14.5) % Plt Count (130-400) K/uL MPV (9.4-12.3) fL Immature Gran % (Auto) % Neut % (Auto) % Lymph % (Auto) % Talbot % (Auto) % Eos % (Auto) % Baso % (Auto) % Neut # (Auto) (1.4-6.5) K/uL Lymph # (Auto) (1.2-3.4) K/uL Talbot # (Auto) (0.24-0.82) K/uL Eos # (Auto) (0-0.50) K/uL Baso # (Auto) (0-0.2) K/uL Immature Gran # (Auto) (0.00-0.02) K/uL ESR (0-20) mm/hr PT (9.0-12.0) Seconds INR (0.9-1.1) APTT (21.0-31.0) Seconds PTT Ratio Sodium 137 (136-145) mmol/L Potassium 3.1 L (3.5-5.1) mmol/L Chloride 107 (98-107) mmol/L Carbon Dioxide 25 (21-32) mmol/L Anion Gap 5 (3-11) BUN 6 (6-23) mg/dl Creatinine 0.46 L (0.6-1.2) mg/dl Est Cr Clr Drug Dosing 149.3 ml/min Est GFR ( Amer) 138.3 ml/min Est GFR (Non-Af Amer) 119.3 ml/min BUN/Creatinine Ratio 13.0 (10-20) Glucose 132 H (70-99(Fasting)) mg/dl Calcium 7.7 L (8.5-10.1) mg/dl Magnesium 2.0 (1.7-2.4) mg/dl Total Bilirubin (0.2-1.0) mg/dl AST (13-39) U/L ALT (7-52) U/L Alkaline Phosphatase (34-104) U/L C-Reactive Protein 8.26 H (0-0.5) mg/dl Total Protein (6.0-8.3) gm/dl Albumin (3.4-5.0) gm/dl Globulin (2.5-4.0) gm/dl Albumin/Globulin Ratio (0.9-2) Stl C. cayetanensis PCR Not Detected (NotDetected) Stool Rotavirus A PCR Not Detected (NotDetected) Stl Adenov F 40/41 PCR Not Detected (NotDetected) Stool Astrovirus (PCR) Not Detected (NotDetected) Stool Campylobacter PCR Not Detected (NotDetected) Stl C. diff Tox A/B PCR Not Detected (NotDetected) Stool Cryptosporidium PCR Not Detected (NotDetected) Stl E.coli Shiga Tox PCR Not Detected (NotDetected) Stl Enterotoxigenic E PCR Not Detected (NotDetected) Stool EPEC (PCR) Not Detected (NotDetected) Stool EAEC (PCR) Not Detected (NotDetected) Stl E. histolytica PCR Not Detected (NotDetected) Stool Giardia Lamblia PCR Not Detected (NotDetected) Stool Salmonella PCR Not Detected (NotDetected) Stool Sapovirus (PCR) Not Detected (NotDetected) Stl P. shigelloides PCR Not Detected (NotDetected) Stl Shigella/EIEC PCR Not Detected (NotDetected) St Y.enterocolitica PCR Not Detected (NotDetected) Stool Vibrio (PCR) Not Detected (NotDetected) Stl Vibrio cholerae PCR Not Detected (NotDetected) Stl Norovirus GI/GII PCR Not Detected (NotDetected) SARS-CoV-2, RNA, NAAT (NEGATIVE) Blood Type Antibody Screen 12/27/21 12/27/21 12/27/21 Range/Units 07:36 07:36 03:35 WBC 9.16 (4.8-10.8) K/ul RBC 3.58 L (3.93-5.22) M/uL Hgb 10.2 L (12.0-16.0) g/dl Hct 30.6 L (34.1-44.9) % MCV 85.5 (80.0-100.0) fL MCH 28.5 (25.0-34.0) pg MCHC 33.3 (32.0-36.0) g/dL RDW Std Deviation 41.3 (36.4-46.3) fL RDW Coeff of Gregory 13.2 (11.5-14.5) % Plt Count 411 H (130-400) K/uL MPV 10.6 (9.4-12.3) fL Immature Gran % (Auto) 0.4 % Neut % (Auto) 58.4 % Lymph % (Auto) 23.6 % Talbot % (Auto) 12.4 % Eos % (Auto) 4.8 % Baso % (Auto) 0.4 % Neut # (Auto) 5.34 (1.4-6.5) K/uL Lymph # (Auto) 2.16 (1.2-3.4) K/uL Talbot # (Auto) 1.14 H (0.24-0.82) K/uL Eos # (Auto) 0.44 (0-0.50) K/uL Baso # (Auto) 0.04 (0-0.2) K/uL Immature Gran # (Auto) 0.04 H (0.00-0.02) K/uL ESR 39 H (0-20) mm/hr PT (9.0-12.0) Seconds INR (0.9-1.1) APTT (21.0-31.0) Seconds PTT Ratio Sodium (136-145) mmol/L Potassium (3.5-5.1) mmol/L Chloride (98-107) mmol/L Carbon Dioxide (21-32) mmol/L Anion Gap (3-11) BUN (6-23) mg/dl Creatinine (0.6-1.2) mg/dl Est Cr Clr Drug Dosing ml/min Est GFR ( Amer) ml/min Est GFR (Non-Af Amer) ml/min BUN/Creatinine Ratio (10-20) Glucose (70-99(Fasting)) mg/dl Calcium (8.5-10.1) mg/dl Magnesium (1.7-2.4) mg/dl Total Bilirubin (0.2-1.0) mg/dl AST (13-39) U/L ALT (7-52) U/L Alkaline Phosphatase (34-104) U/L C-Reactive Protein (0-0.5) mg/dl Total Protein (6.0-8.3) gm/dl Albumin (3.4-5.0) gm/dl Globulin (2.5-4.0) gm/dl Albumin/Globulin Ratio (0.9-2) Stl C. cayetanensis PCR (NotDetected) Stool Rotavirus A PCR (NotDetected) Stl Adenov F 40/41 PCR (NotDetected) Stool Astrovirus (PCR) (NotDetected) Stool Campylobacter PCR (NotDetected) Stl C. diff Tox A/B PCR (NotDetected) Stool Cryptosporidium PCR (NotDetected) Stl E.coli Shiga Tox PCR (NotDetected) Stl Enterotoxigenic E PCR (NotDetected) Stool EPEC (PCR) (NotDetected) Stool EAEC (PCR) (NotDetected) Stl E. histolytica PCR (NotDetected) Stool Giardia Lamblia PCR (NotDetected) Stool Salmonella PCR (NotDetected) Stool Sapovirus (PCR) (NotDetected) Stl P. shigelloides PCR (NotDetected) Stl Shigella/EIEC PCR (NotDetected) St Y.enterocolitica PCR (NotDetected) Stool Vibrio (PCR) (NotDetected) Stl Vibrio cholerae PCR (NotDetected) Stl Norovirus GI/GII PCR (NotDetected) SARS-CoV-2, RNA, NAAT NEGATIVE (NEGATIVE) Blood Type Antibody Screen 12/26/21 12/26/21 12/26/21 Range/Units 20:46 20:46 20:46 WBC 13.56 H (4.8-10.8) K/ul RBC 4.50 (3.93-5.22) M/uL Hgb 12.6 (12.0-16.0) g/dl Hct 38.3 (34.1-44.9) % MCV 85.1 (80.0-100.0) fL MCH 28.0 (25.0-34.0) pg MCHC 32.9 (32.0-36.0) g/dL RDW Std Deviation 41.1 (36.4-46.3) fL RDW Coeff of Gregory 13.3 (11.5-14.5) % Plt Count 564 H (130-400) K/uL MPV 11.0 (9.4-12.3) fL Immature Gran % (Auto) % Neut % (Auto) % Lymph % (Auto) % Talbot % (Auto) % Eos % (Auto) % Baso % (Auto) % Neut # (Auto) (1.4-6.5) K/uL Lymph # (Auto) (1.2-3.4) K/uL Talbot # (Auto) (0.24-0.82) K/uL Eos # (Auto) (0-0.50) K/uL Baso # (Auto) (0-0.2) K/uL Immature Gran # (Auto) (0.00-0.02) K/uL ESR (0-20) mm/hr PT 10.4 (9.0-12.0) Seconds INR 1.0 (0.9-1.1) APTT 27.5 (21.0-31.0) Seconds PTT Ratio 1.0 Sodium 136 (136-145) mmol/L Potassium 3.5 (3.5-5.1) mmol/L Chloride 102 (98-107) mmol/L Carbon Dioxide 27 (21-32) mmol/L Anion Gap 7 (3-11) BUN 10 (6-23) mg/dl Creatinine 0.66 (0.6-1.2) mg/dl Est Cr Clr Drug Dosing 104.0 ml/min Est GFR ( Amer) 122.8 ml/min Est GFR (Non-Af Amer) 105.9 ml/min BUN/Creatinine Ratio 15.2 (10-20) Glucose 103 H (70-99(Fasting)) mg/dl Calcium 9.1 (8.5-10.1) mg/dl Magnesium (1.7-2.4) mg/dl Total Bilirubin 0.3 (0.2-1.0) mg/dl AST 17 (13-39) U/L ALT 22 (7-52) U/L Alkaline Phosphatase 99 (34-104) U/L C-Reactive Protein (0-0.5) mg/dl Total Protein 8.0 (6.0-8.3) gm/dl Albumin 4.1 (3.4-5.0) gm/dl Globulin 3.9 (2.5-4.0) gm/dl Albumin/Globulin Ratio 1.1 (0.9-2) Stl C. cayetanensis PCR (NotDetected) Stool Rotavirus A PCR (NotDetected) Stl Adenov F 40/41 PCR (NotDetected) Stool Astrovirus (PCR) (NotDetected) Stool Campylobacter PCR (NotDetected) Stl C. diff Tox A/B PCR (NotDetected) Stool Cryptosporidium PCR (NotDetected) Stl E.coli Shiga Tox PCR (NotDetected) Stl Enterotoxigenic E PCR (NotDetected) Stool EPEC (PCR) (NotDetected) Stool EAEC (PCR) (NotDetected) Stl E. histolytica PCR (NotDetected) Stool Giardia Lamblia PCR (NotDetected) Stool Salmonella PCR (NotDetected) Stool Sapovirus (PCR) (NotDetected) Stl P. shigelloides PCR (NotDetected) Stl Shigella/EIEC PCR (NotDetected) St Y.enterocolitica PCR (NotDetected) Stool Vibrio (PCR) (NotDetected) Stl Vibrio cholerae PCR (NotDetected) Stl Norovirus GI/GII PCR (NotDetected) SARS-CoV-2, RNA, NAAT (NEGATIVE) Blood Type Antibody Screen 12/26/21 Range/Units 20:46 WBC (4.8-10.8) K/ul RBC (3.93-5.22) M/uL Hgb (12.0-16.0) g/dl Hct (34.1-44.9) % MCV (80.0-100.0) fL MCH (25.0-34.0) pg MCHC (32.0-36.0) g/dL RDW Std Deviation (36.4-46.3) fL RDW Coeff of Gregory (11.5-14.5) % Plt Count (130-400) K/uL MPV (9.4-12.3) fL Immature Gran % (Auto) % Neut % (Auto) % Lymph % (Auto) % Talbot % (Auto) % Eos % (Auto) % Baso % (Auto) % Neut # (Auto) (1.4-6.5) K/uL Lymph # (Auto) (1.2-3.4) K/uL Talbot # (Auto) (0.24-0.82) K/uL Eos # (Auto) (0-0.50) K/uL Baso # (Auto) (0-0.2) K/uL Immature Gran # (Auto) (0.00-0.02) K/uL ESR (0-20) mm/hr PT (9.0-12.0) Seconds INR (0.9-1.1) APTT (21.0-31.0) Seconds PTT Ratio Sodium (136-145) mmol/L Potassium (3.5-5.1) mmol/L Chloride (98-107) mmol/L Carbon Dioxide (21-32) mmol/L Anion Gap (3-11) BUN (6-23) mg/dl Creatinine (0.6-1.2) mg/dl Est Cr Clr Drug Dosing ml/min Est GFR ( Amer) ml/min Est GFR (Non-Af Amer) ml/min BUN/Creatinine Ratio (10-20) Glucose (70-99(Fasting)) mg/dl Calcium (8.5-10.1) mg/dl Magnesium (1.7-2.4) mg/dl Total Bilirubin (0.2-1.0) mg/dl AST (13-39) U/L ALT (7-52) U/L Alkaline Phosphatase (34-104) U/L C-Reactive Protein (0-0.5) mg/dl Total Protein (6.0-8.3) gm/dl Albumin (3.4-5.0) gm/dl Globulin (2.5-4.0) gm/dl Albumin/Globulin Ratio (0.9-2) Stl C. cayetanensis PCR (NotDetected) Stool Rotavirus A PCR (NotDetected) Stl Adenov F 40/41 PCR (NotDetected) Stool Astrovirus (PCR) (NotDetected) Stool Campylobacter PCR (NotDetected) Stl C. diff Tox A/B PCR (NotDetected) Stool Cryptosporidium PCR (NotDetected) Stl E.coli Shiga Tox PCR (NotDetected) Stl Enterotoxigenic E PCR (NotDetected) Stool EPEC (PCR) (NotDetected) Stool EAEC (PCR) (NotDetected) Stl E. histolytica PCR (NotDetected) Stool Giardia Lamblia PCR (NotDetected) Stool Salmonella PCR (NotDetected) Stool Sapovirus (PCR) (NotDetected) Stl P. shigelloides PCR (NotDetected) Stl Shigella/EIEC PCR (NotDetected) St Y.enterocolitica PCR (NotDetected) Stool Vibrio (PCR) (NotDetected) Stl Vibrio cholerae PCR (NotDetected) Stl Norovirus GI/GII PCR (NotDetected) SARS-CoV-2, RNA, NAAT (NEGATIVE) Blood Type O Positive Antibody Screen NEGATIVE
[2021-12-27 20:03] LABS: Hematocrit (blood only) 30.8 % (34.1-44.9); Hemoglobin 10.1 g/dl (12.0-16.0)
[2021-12-27] MEDS: metroNIDAZOLE 500 MG/100 ML BAG IV SCH (20:21)
[2021-12-27] MEDS: methylPREDNISolone 20 MG in SYRINGE 0 ML IV SCH (20:21)
--- NOTE | 2021-12-27 20:21 | Surgery Consultation ---
Date of Consultation December 27, 2021 Assessment & Plan (1) Hemorrhoids: Patient has been admitted on the hospitalist service. She is currently receiving treatment for colitis with antibiotics as well as steroids. Concerning the patient's hemorrhoids that do not appear to be actively bleeding at this time. We would therefore not recommend surgical intervention at this time and we will merely treat her colitis as noted above. If patient continues to have bouts of rectal bleeding we can revisit the topic of addressing her hemorrhoids. At the present time the patient is resting comfortably in bed without pain and as noted on physical exam section there is no active bleeding noted on her hemorrhoids. She is noted to be normotensive without tachycardia. If her hemorrhoids do not bleed any further this can be addressed as an outpatient. Supervising Physician Co-Signing Physician Notes As per Laureano Argueta physician cafe assistant No evidence that this is an acute thrombosis of an external hemorrhoid may have had it in the past certainly not the etiology of her bleeding therefore nothing surgical needs to be done we will glad to see the patient anytime in the future as an outpatient if she has any discomfort in the area History of Present Illness Reason for Consultation: Thrombosed hemorrhoids Attending Physician: Crow Bobby MD History of Present Illness This is a 46-year-old female who speaks Mandarin. Her was present at the bedside who also speaks Mandarin. They did request an hourly sign language interpreter service which we did not utilized throughout the entirety of this patient encounter. In addition a female nurse pv design and installation technician was present during the entire patient encounter. This is a 46-year-old female who came into the emergency department on 12/27/2021 secondary to rectal bleeding. Patient says that this has been going on for santiago roximately 4 weeks and she feels it was getting progressively worse. In addition the patient reports abdominal pain greatest on the left side of her abdomen. She does not report any nausea or vomiting. No fevers, shakes, or chills were noted. She denies any lightheadedness or dizziness. Patient does report a similar episode of rectal bleeding several years ago and was told that she had hemorrhoids. Earlier today the patient had did undergo a colonoscopy. On this exam the patient was noted to have left-sided colitis along with thrombosed external hemorrhoids. The patient has had labs and imaging since arrival to the hospital where CT scan of the abdomen showed findings consistent with a colitis of the descending and sigmoid colon. Infectious versus inflammatory etiology could not be ascertained. There is no evidence of pneumoperitoneum. Labs included a CBC her white blood cell count was normal. Hemoglobin and hematocrit were 10.1 and 30.8. Platelet count was 411,000. It is noteworthy mention that the patient's most recent hemoglobin prior to this admission was in December of this year which was 12.6. Coagulation studies were noted to be normal. Chemistry profile showed a sodium was normal. Potassium was 3.1. BUN and creatinine were not elevated. The patient has thus far been treated for colitis with antibiotics in the form of Cipro and Flagyl along with steroids in the form of Solu-Medrol. At the time of my interview she was resting comfortably in bed and she was in no distress Allergies Allergy/AdvReac Type Severity Reaction Status Date / Time Penicillins AdvReac Verified 12/27/21 11:02 Home Medications Medication Instructions Recorded Confirmed Type No Known Home Medications 12/27/21 12/27/21 History Patient History Social History Smoking Status: Never smoker Second Hand Exposure: No; Do You Dip or Chew Tobacco: No; Tobacco Cessation Education Requested by Patient: No Hx Alcohol Use: Yes Hx Substance Use: No Preferred Language: Mandarin Jamaican Communication Ability: Effective Chemist Organic Required: No Beliefs That Will Affect Care: None marital status: Current Living Situation: Spouse Other Information That Helps Us Care for You: No Feels Safe at Home: Yes Safety Concerns: Feels Safe At This Time Assistive Devices: None Review of Systems Constitutional: no fever and no chills Respiratory: no cough and no dyspnea Cardiovascular: no chest pain Gastrointestinal: + abdominal pain and + blood in stools; no nausea and no vomiting Physical Exam Constitutional: WD/WN, vitals as above Eyes: no conjunctival abnormality ENMT: Ears: no hearing impairment and no external ear abnormality Mouth: no oropharynx abnormality Neck: trachea midline Respiratory: normal respiratory effort; no respiratory distress and no labored breathing Cardiovascular: Rate/Rhythm: regular rate and regular rhythm Gastrointestinal (Abdomen): Abdomen is soft, nonrigid, nondistended, however, tenderness is noted with palpation greatest in the left lower quadrant. There is no rebound tenderness or guarding. With a female nurse pv design and installation technician present the patient's anus was examined and patient did have a visible external hemorrhoid. There is no evidence of active bleeding at this time. There is minimal erythema surrounding the area. Area was not painful to palpation Musculoskeletal: No calf tenderness Skin: no rashes Neurologic: moves all extremities Results & Data ([facility]) Vital Signs (Past 12 Hours) Vital Signs Temp Pulse Pulse Resp BP Pulse Ox O2 Del Method 12/27/21 20:00 36.9 C 90 20 108/72 97 Room Air 12/27/21 18:35 Room Air 12/27/21 18:01 37.3 C 12/27/21 17:22 38.0 C H 101 H 18 109/74 97 12/27/21 16:49 37.4 C 12/27/21 13:08 107 H 16 116/75 99 Room Air 12/27/21 12:53 102 H 16 129/69 99 Room Air 12/27/21 12:38 106 H 16 110/71 98 Room Air 12/27/21 11:05 37 C 102 H 18 120/72 97 Room Air PG Care Time/CCT Total # of Minutes Spent Total Time Spent with Patient: Total time spent is greater than 50% in coordination of care (as documented) at patient's floor/unit and/or counseling patient: Coding Level of Care Code 03608 Inpt Consult Level 4 Diagnoses Hemorrhoids K64.9
[2021-12-27 20:43] LABS: BUN Creatinine Ratio 8.2 (10-20); Calcium 7.8 mg/dl (8.5-10.1); Creatinine Clr Calc Pharmacy 141.4 ml/min; Est GFR (African American) 135.4 ml/min; Est GFR (Non-African American) 116.8 ml/min; Potassium 3.5 mmol/L (3.5-5.1)
[2021-12-27] MEDS: CIPROFLOXACIN / D5W 400 MG/200 ML BAG IV SCH (21:19)
[2021-12-28] MEDS: metroNIDAZOLE 500 MG/100 ML BAG IV SCH ×3 (02:43→17:29)
[2021-12-28] MEDS: methylPREDNISolone 20 MG in SYRINGE 0 ML IV SCH ×3 (02:44→20:33)
[2021-12-28] MEDS: CIPROFLOXACIN / D5W 400 MG/200 ML BAG IV SCH ×2 (06:18→18:31)
[2021-12-28] MEDS: D5W AND 1/2NSS 1,000 ML IV SCH ×2 (07:41→15:44)
[2021-12-28 08:15] LABS: Hematocrit (blood only) 31.3 % (34.1-44.9); Mean Corpuscular Hemoglobin 27.4 pg (25.0-34.0); Mean Corpuscular Hgb Conc 31.9 g/dL (32.0-36.0); Mean Corpuscular Volume 85.8 fL (80.0-100.0); Mean Platelet Volume 10.5 fL (9.4-12.3); Platelet Count 422 K/uL (130-400); RDW Coefficient of Variation 13.1 % (11.5-14.5); RDW Standard Deviation 41.1 fL (36.4-46.3); Red Blood Count 3.65 M/uL (3.93-5.22); White Blood Count 6.82 K/ul (4.8-10.8)
[2021-12-28 08:39] LABS: BUN Creatinine Ratio 9.3 (10-20); Calcium 7.9 mg/dl (8.5-10.1); Creatinine Clr Calc Pharmacy 159.5 ml/min; Est GFR (African American) 141.4 ml/min; Magnesium 2.2 mg/dl (1.7-2.4); Phosphorus 2.7 mg/dl (2.5-4.9); Potassium 3.5 mmol/L (3.5-5.1)
--- NOTE | 2021-12-28 10:46 | Gastroenterology Progress Note ---
Date of Service December 28, 2021 Assessment & Plan (1) Ulcerative colitis: Plan Patient with suspected left-sided ulcerative colitis. I would continue the Solu-Medrol as you are doing, pending the patient's course she will likely be in the hospital for several more days until she improves. Recommendations advance to a low residue diet Continue Solu-Medrol Admission and Anticipated Discharge Date Admission Date: December 27, 2021 Subjective The patient underwent a examination by my partner yesterday and was found to have severe left-sided colitis. Today she is holding her left side but notes that it seems to be improved as compared to yesterday. She was started on steroids yesterday afternoon. Review of Systems Eyes: no diplopia Ear, Nose, Mouth, Throat: no ear trauma Respiratory: no cough and no change in sputum Cardiovascular: no chest pain with activity Physical Exam Constitutional: WD/WN, vitals as above Eyes: PERRL, conjunctivae normal, anicteric sclerae Neck: trachea midline, no thyromegaly Respiratory: normal respiratory effort, lungs clear to auscultation Cardiovascular: Rate/Rhythm: regular rate and regular rhythm; not tachycardic Gastrointestinal (Abdomen): Percussion/Palpation: abdomen soft; abdomen nontender, no guarding and abdomen not rigid Results & Data ([facility]) Vital Signs (Past 12 Hours) Vital Signs Temp Pulse Pulse Resp BP Pulse Ox O2 Del Method 12/28/21 08:18 36.3 C L 75 17 94/55 L 97 Room Air 12/28/21 07:29 67 12/28/21 03:56 36.9 C 79 20 89/57 L 97 Room Air 12/27/21 23:07 37.0 C 85 20 102/69 96 Room Air Laboratory Results Laboratory Results - last 24 hr 12/27/21 12/27/21 12/27/21 12:23 14:26 19:29 WBC RBC Hgb 10.2 L 10.1 L Hct 32.2 L 30.8 L MCV MCH MCHC RDW Std Deviation RDW Coeff of Gregory Plt Count MPV Sodium Potassium Chloride Carbon Dioxide Anion Gap BUN Creatinine Est Cr Clr Drug Dosing Est GFR ( Amer) Est GFR (Non-Af Amer) BUN/Creatinine Ratio Glucose Calcium Phosphorus Magnesium Stl C. cayetanensis PCR Not Detected Stool Rotavirus A PCR Not Detected Stl Adenov F 40/41 PCR Not Detected Stool Astrovirus (PCR) Not Detected Stool Campylobacter PCR Not Detected Stl C. diff Tox A/B PCR Not Detected Stool Cryptosporidium PCR Not Detected Stl E.coli Shiga Tox PCR Not Detected Stl Enterotoxigenic E PCR Not Detected Stool EPEC (PCR) Not Detected Stool EAEC (PCR) Not Detected Stl E. histolytica PCR Not Detected Stool Giardia Lamblia PCR Not Detected Stool Salmonella PCR Not Detected Stool Sapovirus (PCR) Not Detected Stl P. shigelloides PCR Not Detected Stl Shigella/EIEC PCR Not Detected St Y.enterocolitica PCR Not Detected Stool Vibrio (PCR) Not Detected Stl Vibrio cholerae PCR Not Detected Stl Norovirus GI/GII PCR Not Detected 12/27/21 12/28/21 12/28/21 19:29 07:55 07:55 WBC 6.82 RBC 3.65 L Hgb 10.0 L Hct 31.3 L MCV 85.8 MCH 27.4 MCHC 31.9 L RDW Std Deviation 41.1 RDW Coeff of Gregory 13.1 Plt Count 422 H MPV 10.5 Sodium 137 137 Potassium 3.5 3.5 Chloride 107 108 H Carbon Dioxide 24 25 Anion Gap 6 4 BUN 4 L 4 L Creatinine 0.49 L 0.43 L Est Cr Clr Drug Dosing 141.4 159.5 Est GFR ( Amer) 135.4 141.4 Est GFR (Non-Af Amer) 116.8 122.0 BUN/Creatinine Ratio 8.2 L 9.3 L Glucose 121 H 191 H Calcium 7.8 L 7.9 L Phosphorus 3.0 2.7 Magnesium 2.0 2.2 Stl C. cayetanensis PCR Stool Rotavirus A PCR Stl Adenov F PCR Stool Astrovirus (PCR) Stool Campylobacter PCR Stl C. diff Tox A/B PCR Stool Cryptosporidium PCR Stl E.coli Shiga Tox PCR Stl Enterotoxigenic E PCR Stool EPEC (PCR) Stool EAEC (PCR) Stl E. histolytica PCR Stool Giardia Lamblia PCR Stool Salmonella PCR Stool Sapovirus (PCR) Stl P. shigelloides PCR Stl Shigella/EIEC PCR St Y.enterocolitica PCR Stool Vibrio (PCR) Stl Vibrio cholerae PCR Stl Norovirus GI/GII PCR Diagnostic Findings CT abd pelvis IV con only CLINICAL HISTORY: eval for diverticulitis TECHNIQUE: Helical axial images of the abdomen and pelvis were obtained and displayed. Automated dose lowering techniques and/or adjustment according to patient size were utilized for this exam. This exam was performed with intravenous contrast. CT DOSE: 383.39 mGy.cm COMPARISON: None available at the time of this dictation. FINDINGS: Lower chest: No acute abnormality Liver: Unremarkable. No focal lesions are seen. Gallbladder and biliary tree: No calcified gallstones. Normal caliber wall. No intra- or extrahepatic biliary ductal dilation. Pancreas: Unremarkable, no focal lesions. Spleen: Unremarkable. Adrenals: Unremarkable. Kidneys and ureters: Unremarkable. Bladder: Unremarkable. Reproductive organs: A tampon is seen. Bowel: There is thickening of the descending and sigmoid colon. Liquid contents are seen throughout the colon. The appendix is normal. Lymph nodes Retroperitoneal: Unremarkable. Pelvic: Unremarkable. Mesenteric: Subcentimeter lymph nodes are noted. These are more prominent in the left. Peritoneum: Mild fat stranding is seen in the region of the left hemicolon. No pneumoperitoneum is seen. No abnormal fluid collections. Vessels: Unremarkable. Abdominal wall: Unremarkable. Bones: Unremarkable. IMPRESSION: Findings are compatible with colitis of the descending and sigmoid colon, which may be infectious or inflammatory. No significant diverticulosis is seen. No fluid collection or pneumoperitoneum is noted.
--- NOTE | 2021-12-28 11:03 | Hospitalist Progress Note ---
Date of Service December 28, 2021 Assessment & Plan (1) Rectal bleed: Plan: This is a 46-year-old female who presents with rectal bleeding going for last 4 weeks. CAT scan showing colitis in the descending colon and rectosigmoid region, inflammatory or infectious. The patient took antibiotic, norfloxacin for 5 days last week that did not help her symptoms. Stool PCR panel - negative ESR, CRP levels - elevated at 39 and 8.26 respectively IV fluids, IV antiemetics, IV pain medications p.r.n. GI consulted s/p flex sig (12/27/21) Findings: The perianal exam findings include thrombosed external hemorrhoids. Normal mucosa was found in the transverse colon, in the ascending colon and in the cecum. Diffuse moderate inflammation characterized by altered vascularity, erosions, erythema, friability and granularity was found from rectum to splenic flexure. Biopsies were taken with a cold forceps for histology. Verification of patient identification for the specimen was done by the physician and nurse using the patient's name and date. Fluid aspiration for bacterial cultures and Clostridium difficile was performed. Impression: - Thrombosed external hemorrhoids found on perianal exam. - Left sided colitis. Biopsied. Fluid aspiration performed. Recommendation: - Return patient to [facility] for ongoing care. - Await pathology results. - Based on infectious panel will decide about therapy, if negative may need Steroids. - Refer to a surgeon to treat the thrombosed hemorrhoids now. - Follow up in GI office as OP. Surgical service consulted - plan for outpt follow up as needed, no indication for acute intervention at this time Monitor H&H and electrolytes 12/27 6PM - pt developed fever 38C, started empiric Abx (cipro + flagyl) Discussed w/ Dr. Montenegro, also started solumedrol IV (60 daily) Acute blood loss anemia and dilutional anemia - 2/2 GI bleed and IVF 12/28 - Hgb stable at 10, plan to advance diet, GI following Patient wants to think about signing Blood consent form. DVT prophylaxis: SCDs Admission and Anticipated Discharge Date Admission Date: December 27, 2021 Subjective Pt seen in follow up of GI bleed Underwent flex sig w/ GI yesterday She is currently lying in bed, in no distress, reports some abdominal discomfort -holds her left side Patient's at the bedside Patient speaks Mandarin, used corporate administrative assistant via iPad Denies chest pain shortness of breath nausea vomiting Febrile yesterday after her procedure, however since then afebrile Per RN had some blood per rectum overnight, no stool/blood today so far Tolerating clear liquid diet, plan to advance Review of Systems Review of Systems: All systems reviewed & are unremarkable except as noted in Subjective Physical Exam Physical Exam: GENERAL: The patient is of moderate build, not in acute distress. HEENT: NC/AT. EOMI, Pupils equal, round and reactive to light. Oral mucosa moist. NECK: No JVD, no neck masses. CARDIOVASCULAR: S1 and S2 heard. Regular rate and rhythm. No murmur, no gallop. RESPIRATORY: Normal AP diameter. No accessory muscle use. No wheezing, no crackles. ABDOMEN: Soft, bowel sounds present, mild tenderness to palp at LLQ, no distention. NEURO: Alert and awake. Answers appropriately. Speech fluent. Moves her extremities. EXTREMITIES: No edema, no erythema. Results & Data Results & Data ([facility]) Vital Signs (Past 12 Hours) Vital Signs Temp Pulse Pulse Resp BP Pulse Ox O2 Del Method 12/28/21 08:18 36.3 C L 75 17 94/55 L 97 Room Air 12/28/21 07:29 67 12/28/21 03:56 36.9 C 79 20 89/57 L 97 Room Air 12/27/21 23:07 37.0 C 85 20 102/69 96 Room Air Laboratory Results 12/28/21 12/28/21 12/27/21 Range/Units 07:55 07:55 19:29 WBC 6.82 (4.8-10.8) K/ul RBC 3.65 L (3.93-5.22) M/uL Hgb 10.0 L (12.0-16.0) g/dl Hct 31.3 L (34.1-44.9) % MCV 85.8 (80.0-100.0) fL MCH 27.4 (25.0-34.0) pg MCHC 31.9 L (32.0-36.0) g/dL RDW Std Deviation 41.1 (36.4-46.3) fL RDW Coeff of Gregory 13.1 (11.5-14.5) % Plt Count 422 H (130-400) K/uL MPV 10.5 (9.4-12.3) fL Sodium 137 137 (136-145) mmol/L Potassium 3.5 3.5 (3.5-5.1) mmol/L Chloride 108 H 107 (98-107) mmol/L Carbon Dioxide 25 24 (21-32) mmol/L Anion Gap 4 6 (3-11) BUN 4 L 4 L (6-23) mg/dl Creatinine 0.43 L 0.49 L (0.6-1.2) mg/dl Est Cr Clr Drug Dosing 159.5 141.4 ml/min Est GFR ( Amer) 141.4 135.4 ml/min Est GFR (Non-Af Amer) 122.0 116.8 ml/min BUN/Creatinine Ratio 9.3 L 8.2 L (10-20) Glucose 191 H 121 H (70-99(Fasting)) mg/dl Calcium 7.9 L 7.8 L (8.5-10.1) mg/dl Phosphorus 2.7 3.0 (2.5-4.9) mg/dl Magnesium 2.2 2.0 (1.7-2.4) mg/dl Stl C. cayetanensis PCR (NotDetected) Stool Rotavirus A PCR (NotDetected) Stl Adenov F 40/41 PCR (NotDetected) Stool Astrovirus (PCR) (NotDetected) Stool Campylobacter PCR (NotDetected) Stl C. diff Tox A/B PCR (NotDetected) Stool Cryptosporidium PCR (NotDetected) Stl E.coli Shiga Tox PCR (NotDetected) Stl Enterotoxigenic E PCR (NotDetected) Stool EPEC (PCR) (NotDetected) Stool EAEC (PCR) (NotDetected) Stl E. histolytica PCR (NotDetected) Stool Giardia Lamblia PCR (NotDetected) Stool Salmonella PCR (NotDetected) Stool Sapovirus (PCR) (NotDetected) Stl P. shigelloides PCR (NotDetected) Stl Shigella/EIEC PCR (NotDetected) St Y.enterocolitica PCR (NotDetected) Stool Vibrio (PCR) (NotDetected) Stl Vibrio cholerae PCR (NotDetected) Stl Norovirus GI/GII PCR (NotDetected) 12/27/21 12/27/21 12/27/21 Range/Units 19:29 14:26 12:23 WBC (4.8-10.8) K/ul RBC (3.93-5.22) M/uL Hgb 10.1 L 10.2 L (12.0-16.0) g/dl Hct 30.8 L 32.2 L (34.1-44.9) % MCV (80.0-100.0) fL MCH (25.0-34.0) pg MCHC (32.0-36.0) g/dL RDW Std Deviation (36.4-46.3) fL RDW Coeff of Gregory (11.5-14.5) % Plt Count (130-400) K/uL MPV (9.4-12.3) fL Sodium (136-145) mmol/L Potassium (3.5-5.1) mmol/L Chloride (98-107) mmol/L Carbon Dioxide (21-32) mmol/L Anion Gap (3-11) BUN (6-23) mg/dl Creatinine (0.6-1.2) mg/dl Est Cr Clr Drug Dosing ml/min Est GFR ( Amer) ml/min Est GFR (Non-Af Amer) ml/min BUN/Creatinine Ratio (10-20) Glucose (70-99(Fasting)) mg/dl Calcium (8.5-10.1) mg/dl Phosphorus (2.5-4.9) mg/dl Magnesium (1.7-2.4) mg/dl Stl C. cayetanensis PCR Not Detected (NotDetected) Stool Rotavirus A PCR Not Detected (NotDetected) Stl Adenov F 40/41 PCR Not Detected (NotDetected) Stool Astrovirus (PCR) Not Detected (NotDetected) Stool Campylobacter PCR Not Detected (NotDetected) Stl C. diff Tox A/B PCR Not Detected (NotDetected) Stool Cryptosporidium PCR Not Detected (NotDetected) Stl E.coli Shiga Tox PCR Not Detected (NotDetected) Stl Enterotoxigenic E PCR Not Detected (NotDetected) Stool EPEC (PCR) Not Detected (NotDetected) Stool EAEC (PCR) Not Detected (NotDetected) Stl E. histolytica PCR Not Detected (NotDetected) Stool Giardia Lamblia PCR Not Detected (NotDetected) Stool Salmonella PCR Not Detected (NotDetected) Stool Sapovirus (PCR) Not Detected (NotDetected) Stl P. shigelloides PCR Not Detected (NotDetected) Stl Shigella/EIEC PCR Not Detected (NotDetected) St Y.enterocolitica PCR Not Detected (NotDetected) Stool Vibrio (PCR) Not Detected (NotDetected) Stl Vibrio cholerae PCR Not Detected (NotDetected) Stl Norovirus GI/GII PCR Not Detected (NotDetected) Medications Administered Current Inpatient Medications Acetaminophen (Acetaminophen 325 Mg Tab) 650 mg PO Q4H PRN PRN Reason: Pain or Fever Stop: 01/26/22 05:14 Last Admin: 12/27/21 17:30 Dose: 650 mg Dextrose/Sodium Chloride (D5w And 1/2nss) 1,000 mls @ 125 mls/hr IV .Q8H [facility] Stop: 01/26/22 05:14 Last Admin: 12/28/21 07:41 Dose: 125 mls/hr Ciprofloxacin (Cipro / D5w) 400 mg in 200 mls @ 100 mls/hr IV Q12H [facility]; Protocol Stop: 01/06/22 18:29 Last Infusion: 12/28/21 08:30 Dose: Infused Metronidazole (Flagyl) 500 mg in 100 mls @ 100 mls/hr IV Q8H [facility] Stop: 01/06/22 18:29 Last Admin: 12/28/21 10:33 Dose: 100 mls/hr Methylprednisolone 20 mg/ (Syringe) 0.32 mls @ 1.5 mls/min IV Q8H [facility] Stop: 01/27/22 11:59 Morphine Sulfate (Morphine Sulfate 4 Mg/Ml 1 Ml Carp\Vial) 3 mg IV Q4H PRN PRN Reason: Pain Stop: 01/10/22 05:14 Nitroglycerin (Nitroglycerin Sl 0.4 Mg/Tab Tab) 0.4 mg SL UD PRN PRN Reason: Chest Pain Stop: 01/26/22 05:14 Ondansetron HCl (Ondansetron Inj 2 Mg/Ml 2 Ml Vial) 4 mg IV Q6H PRN PRN Reason: Nausea Stop: 01/26/22 05:14
[2021-12-28] MEDS ORDERED: POTASSIUM CHLORIDE PWD 20 MEQ PACK PO ONE (18:46)
[2021-12-29] MEDS: D5W AND 1/2NSS 1,000 ML IV SCH ×3 (00:46→18:39)
[2021-12-29] MEDS: metroNIDAZOLE 500 MG/100 ML BAG IV SCH ×3 (03:17→17:43)
[2021-12-29] MEDS: methylPREDNISolone 20 MG in SYRINGE 0 ML IV SCH ×3 (03:22→21:27)
[2021-12-29] MEDS: CIPROFLOXACIN / D5W 400 MG/200 ML BAG IV SCH ×2 (06:31→18:39)
[2021-12-29 07:36] LABS: Hematocrit (blood only) 31.8 % (34.1-44.9); Hemoglobin 10.5 g/dl (12.0-16.0); Mean Corpuscular Hemoglobin 27.9 pg (25.0-34.0); Mean Corpuscular Volume 84.6 fL (80.0-100.0); Platelet Count 489 K/uL (130-400); RDW Coefficient of Variation 13.2 % (11.5-14.5); RDW Standard Deviation 41.1 fL (36.4-46.3); Red Blood Count 3.76 M/uL (3.93-5.22); White Blood Count 10.19 K/ul (4.8-10.8)
[2021-12-29 07:59] LABS: BUN Creatinine Ratio 8.3 (10-20); Calcium 8.3 mg/dl (8.5-10.1); Creatinine Clr Calc Pharmacy 142.9 ml/min; Est GFR (African American) 136.3 ml/min; Est GFR (Non-African American) 117.6 ml/min; Magnesium 2.3 mg/dl (1.7-2.4); Phosphorus 2.7 mg/dl (2.5-4.9); Potassium 3.6 mmol/L (3.5-5.1)
--- NOTE | 2021-12-29 08:50 | Gastroenterology Progress Note ---
Date of Service December 29, 2021 Assessment & Plan (1) Ulcerative colitis: Plan: Patient with recently diagnosed left-sided ulcerative colitis. Based on my partners description he was highly concerned about her case and started her on steroids Thursday evening. At this point it does not appear that she has improved significantly however her blood count does remain stable. Thus I would recommend continued use of IV Solu-Medrol. Should the patient not improve in the next 24 to 48 hours she may need referral to tertiary care center with colorectal surgery support Recommendations full liquid diet Continue Solu-Medrol Daily CBC If no improvement in the next 24 to 48 hours would recommend referral to a tertiary care center with colorectal surgery support Admission and Anticipated Discharge Date Admission Date: December 27, 2021 Subjective Patient notes that she continues to have passage of bright red blood from the rectum. She was feeling quite well yesterday morning but notes that over the subsequent afternoon she began to develop more poorly. Review of Systems Eyes: no diplopia Respiratory: no change in sputum and no hemoptysis Cardiovascular: no chest pain with activity Physical Exam Neck: trachea midline, no thyromegaly Respiratory: normal respiratory effort, lungs clear to auscultation Cardiovascular: Rate/Rhythm: regular rate and regular rhythm; not tachycardic Gastrointestinal (Abdomen): normal bowel sounds, soft, nontender, no hepatosplenomegaly Results & Data ([facility]) Vital Signs (Past 12 Hours) Vital Signs Temp Pulse Pulse Resp BP Pulse Ox O2 Del Method 12/29/21 07:06 64 12/29/21 03:10 37.0 C 79 20 106/71 97 Room Air 12/28/21 22:20 80 12/28/21 23:20 37.3 C 82 20 109/62 97 Room Air Laboratory Results Laboratory Results - last 24 hr 12/29/21 12/29/21 06:52 06:52 WBC 10.19 RBC 3.76 L Hgb 10.5 L Hct 31.8 L MCV 84.6 MCH 27.9 MCHC 33.0 RDW Std Deviation 41.1 RDW Coeff of Gregory 13.2 Plt Count 489 H MPV 11.0 Sodium 138 Potassium 3.6 Chloride 108 H Carbon Dioxide 24 Anion Gap 6 BUN 4 L Creatinine 0.48 L Est Cr Clr Drug Dosing 142.9 Est GFR ( Amer) 136.3 Est GFR (Non-Af Amer) 117.6 BUN/Creatinine Ratio 8.3 L Glucose 157 H Calcium 8.3 L Phosphorus 2.7 Magnesium 2.3
[2021-12-29] MEDS ORDERED: POTASSIUM CHLORIDE PWD 20 MEQ PACK PO ONE (12:00)
[2021-12-29] MEDS: HYDROCORTISONE ACETATE 25 MG SUPP PR PRN (12:13)
[2021-12-29] MEDS: POTASSIUM CHLORIDE / WTR 10 MEQ/100 ML PLCT IV SCH ×2 (12:13→13:32)
[2021-12-29] MEDS ORDERED: Nursing to Pharmacy Communication SCH (13:00)
--- NOTE | 2021-12-29 17:33 | Hospitalist Progress Note ---
Date of Service December 29, 2021 Assessment & Plan (1) Rectal bleed: Plan: Colitis - likely inflammatory This is a 46-year-old female who presents with rectal bleeding going for last 4 weeks. CAT scan showing colitis in the descending colon and rectosigmoid region, inflammatory or infectious. The patient took antibiotic, norfloxacin for 5 days last week that did not help her symptoms. Stool PCR panel - negative ESR, CRP levels - elevated at 39 and 8.26 respectively IV fluids, IV antiemetics, IV pain medications p.r.n. GI consulted s/p flex sig (12/27/21) Findings: The perianal exam findings include thrombosed external hemorrhoids. Normal mucosa was found in the transverse colon, in the ascending colon and in the cecum. Diffuse moderate inflammation characterized by altered vascularity, erosions, erythema, friability and granularity was found from rectum to splenic flexure. Biopsies were taken with a cold forceps for histology. Verification of patient identification for the specimen was done by the physician and nurse using the patient's name and date. Fluid aspiration for bacterial cultures and Clostridium difficile was performed. Impression: - Thrombosed external hemorrhoids found on perianal exam. - Left sided colitis. Biopsied. Fluid aspiration performed. Recommendation: - Return patient to [facility] for ongoing care. - Await pathology results. - Based on infectious panel will decide about therapy, if negative may need Steroids. - Refer to a surgeon to treat the thrombosed hemorrhoids now. - Follow up in GI office as OP. Surgical service consulted - plan for outpt follow up as needed, no indication for acute intervention at this time Monitor H&H and electrolytes 12/27 6PM - pt developed fever 38C, started empiric Abx (cipro + flagyl) Discussed w/ Dr. Montenegro, also started solumedrol IV (60 daily) 12/29 -reports 2 episodes of blood per rectum, however reports less than before Abdominal discomfort improved. Hemoglobin stable Acute blood loss anemia and dilutional anemia - 2/2 GI bleed and IVF 12/28 - Hgb stable at 10, plan to advance diet, GI following Patient wants to think about signing Blood consent form. DVT prophylaxis: SCDs Admission and Anticipated Discharge Date Admission Date: December 27, 2021 Subjective Pt seen in follow up of GI bleed Underwent flex sig w/ GI She is currently lying in bed, in no distress, reports some abdominal discomfort but currently improved Reports 2 episodes of blood per rectum today, however reports that it is less than it was before Patient's at the bedside Patient speaks Mandarin, used freelance interpreter/translator via iPad Denies chest pain shortness of breath nausea vomiting, tolerating clear liquid diet Review of Systems Review of Systems: All systems reviewed & are unremarkable except as noted in Subjective Physical Exam Physical Exam: GENERAL: The patient is of moderate build, not in acute distress. HEENT: NC/AT. EOMI, Pupils equal, round and reactive to light. Oral mucosa moist. NECK: No JVD, no neck masses. CARDIOVASCULAR: S1 and S2 heard. Regular rate and rhythm. No murmur, no gallop. RESPIRATORY: Normal AP diameter. No accessory muscle use. No wheezing, no crackles. ABDOMEN: Soft, bowel sounds present, mild tenderness to palp at LLQ (improved), no distention. NEURO: Alert and awake. Answers appropriately. Speech fluent. Moves her extremities. EXTREMITIES: No edema, no erythema. Results & Data Results & Data ([facility]) Vital Signs (Past 12 Hours) Vital Signs Temp Pulse Pulse Resp BP Pulse Ox O2 Del Method 12/29/21 16:31 80 12/29/21 16:11 36.9 C 70 17 128/71 97 Room Air 12/29/21 12:41 36.8 C 77 17 120/81 96 Room Air 12/29/21 09:32 36.6 C 75 16 115/75 98 Room Air 12/29/21 07:06 64 Laboratory Results 12/29/21 12/29/21 Range/Units 06:52 06:52 WBC 10.19 (4.8-10.8) K/ul RBC 3.76 L (3.93-5.22) M/uL Hgb 10.5 L (12.0-16.0) g/dl Hct 31.8 L (34.1-44.9) % MCV 84.6 (80.0-100.0) fL MCH 27.9 (25.0-34.0) pg MCHC 33.0 (32.0-36.0) g/dL RDW Std Deviation 41.1 (36.4-46.3) fL RDW Coeff of Gregory 13.2 (11.5-14.5) % Plt Count 489 H (130-400) K/uL MPV 11.0 (9.4-12.3) fL Sodium 138 (136-145) mmol/L Potassium 3.6 (3.5-5.1) mmol/L Chloride 108 H (98-107) mmol/L Carbon Dioxide 24 (21-32) mmol/L Anion Gap 6 (3-11) BUN 4 L (6-23) mg/dl Creatinine 0.48 L (0.6-1.2) mg/dl Est Cr Clr Drug Dosing 142.9 ml/min Est GFR ( Amer) 136.3 ml/min Est GFR (Non-Af Amer) 117.6 ml/min BUN/Creatinine Ratio 8.3 L (10-20) Glucose 157 H (70-99(Fasting)) mg/dl Calcium 8.3 L (8.5-10.1) mg/dl Phosphorus 2.7 (2.5-4.9) mg/dl Magnesium 2.3 (1.7-2.4) mg/dl Medications Administered Current Inpatient Medications Acetaminophen (Acetaminophen 325 Mg Tab) 650 mg PO Q4H PRN PRN Reason: Pain or Fever Stop: 01/26/22 05:14 Last Admin: 12/27/21 17:30 Dose: 650 mg Hydrocortisone (Hydrocortisone Acetate 25 Mg Supp) 25 mg TX BID PRN PRN Reason: Hemorrhoids Stop: 01/27/22 20:45 Last Admin: 12/29/21 12:13 Dose: 25 mg Dextrose/Sodium Chloride (D5w And 1/2nss) 1,000 mls @ 125 mls/hr IV .Q8H [facility] Stop: 01/26/22 05:14 Last Infusion: 12/29/21 12:09 Dose: 125 mls/hr Ciprofloxacin (Cipro / D5w) 400 mg in 200 mls @ 100 mls/hr IV Q12H [facility]; Protocol Stop: 01/06/22 18:29 Last Infusion: 12/29/21 08:47 Dose: Infused Metronidazole (Flagyl) 500 mg in 100 mls @ 100 mls/hr IV Q8H [facility] Stop: 01/06/22 18:29 Last Infusion: 12/29/21 11:33 Dose: Infused Methylprednisolone 20 mg/ (Syringe) 0.32 mls @ 1.5 mls/min IV Q8H [facility] Stop: 01/27/22 11:59 Last Admin: 12/29/21 12:13 Dose: 1.5 mls/min Morphine Sulfate (Morphine Sulfate 4 Mg/Ml 1 Ml Carp\Vial) 3 mg IV Q4H PRN PRN Reason: Pain Stop: 01/10/22 05:14 Nitroglycerin (Nitroglycerin Sl 0.4 Mg/Tab Tab) 0.4 mg SL UD PRN PRN Reason: Chest Pain Stop: 01/26/22 05:14 Ondansetron HCl (Ondansetron Inj 2 Mg/Ml 2 Ml Vial) 4 mg IV Q6H PRN PRN Reason: Nausea Stop: 01/26/22 05:14
[2021-12-30] MEDS: metroNIDAZOLE 500 MG/100 ML BAG IV SCH ×3 (02:52→18:22)
[2021-12-30] MEDS: D5W AND 1/2NSS 1,000 ML IV SCH ×2 (03:58→13:25)
[2021-12-30] MEDS: methylPREDNISolone 20 MG in SYRINGE 0 ML IV SCH ×3 (04:52→20:20)
[2021-12-30] MEDS: CIPROFLOXACIN / D5W 400 MG/200 ML BAG IV SCH ×2 (05:52→18:22)
[2021-12-30 06:35] LABS: Hematocrit (blood only) 32.2 % (34.1-44.9); Hemoglobin 10.3 g/dl (12.0-16.0); Mean Corpuscular Hemoglobin 27.2 pg (25.0-34.0); Mean Platelet Volume 10.4 fL (9.4-12.3); Platelet Count 539 K/uL (130-400); RDW Coefficient of Variation 13.2 % (11.5-14.5); RDW Standard Deviation 40.7 fL (36.4-46.3); Red Blood Count 3.79 M/uL (3.93-5.22); White Blood Count 9.82 K/ul (4.8-10.8)
[2021-12-30 07:03] LABS: BUN Creatinine Ratio 7.5 (10-20); Calcium 8.2 mg/dl (8.5-10.1); Creatinine Clr Calc Pharmacy 129.4 ml/min; Est GFR (Non-African American) 113.9 ml/min; Magnesium 2.3 mg/dl (1.7-2.4); Phosphorus 3.6 mg/dl (2.5-4.9); Potassium 3.7 mmol/L (3.5-5.1)
--- NOTE | 2021-12-30 08:38 | Hospitalist Progress Note ---
Date of Service December 30, 2021 Assessment & Plan (1) Rectal bleed: Plan: Colitis - likely inflammatory This is a 46-year-old female who presents with rectal bleeding going for last 4 weeks. CAT scan showing colitis in the descending colon and rectosigmoid region, inflammatory or infectious. The patient took antibiotic, norfloxacin for 5 days last week that did not help her symptoms. Stool PCR panel - negative ESR, CRP levels - elevated at 39 and 8.26 respectively IV fluids, IV antiemetics, IV pain medications p.r.n. GI consulted s/p flex sig (12/27/21) Findings: The perianal exam findings include thrombosed external hemorrhoids. Normal mucosa was found in the transverse colon, in the ascending colon and in the cecum. Diffuse moderate inflammation characterized by altered vascularity, erosions, erythema, friability and granularity was found from rectum to splenic flexure. Biopsies were taken with a cold forceps for histology. Verification of patient identification for the specimen was done by the physician and nurse using the patient's name and date. Fluid aspiration for bacterial cultures and Clostridium difficile was performed. Impression: - Thrombosed external hemorrhoids found on perianal exam. - Left sided colitis. Biopsied. Fluid aspiration performed. Recommendation: - [facility] patient to [facility] for [facility] care. - Await pathology results. - Based on infectious panel will decide about therapy, if negative may need Steroids. - Refer to a surgeon to treat the thrombosed hemorrhoids now. - Follow up in GI office as OP. Surgical service consulted - plan for outpt follow up as needed, no indication for acute intervention at this time Monitor H&H and electrolytes 12/27 6PM - pt developed fever 38C, started empiric Abx (cipro + flagyl) Discussed w/ Dr. Montenegro, also started solumedrol IV (60 daily) 12/29 -reports 2 episodes of blood per rectum, however reports less than before Abdominal discomfort improved. Hemoglobin stable 12/30 - reports 4 episodes of blood per rectum, however reports bleeding much less Abdominal discomfort much improved. Hemoglobin stable Acute blood loss anemia and dilutional anemia - 2/2 GI bleed and IVF 12/28 - Hgb stable at 10, plan to advance diet, GI following DVT prophylaxis: SCDs Admission and Anticipated Discharge Date Admission Date: December 27, 2021 Subjective Pt seen in follow up of GI bleed Underwent flex sig w/ GI She is currently lying in bed, in no distress, reports some abdominal discomfort but currently much improved Reports 4 episodes of blood per rectum yesterday, none yet today. Reports bleeding much less than before Patient's at the bedside Patient speaks Mandarin, used commercial loan analyst via iPad Denies chest pain shortness of breath nausea vomiting, tolerating clear liquid diet Review of Systems Review of Systems: All systems reviewed & are unremarkable except as noted in Subjective Physical Exam Physical Exam: GENERAL: The patient is of moderate build, not in acute distress. HEENT: NC/AT. EOMI, Pupils equal, round and reactive to light. Oral mucosa moist. NECK: No JVD, no neck masses. CARDIOVASCULAR: S1 and S2 heard. Regular rate and rhythm. No murmur, no gallop. RESPIRATORY: Normal AP diameter. No accessory muscle use. No wheezing, no crackles. ABDOMEN: Soft, bowel sounds present, mild tenderness to palp at LLQ (much improved), no distention. NEURO: Alert and awake. Answers appropriately. Speech fluent. Moves her extremities. EXTREMITIES: No edema, no erythema. Results & Data Results & Data ([facility]) Vital Signs (Past 12 Hours) Vital Signs Temp Pulse Resp BP Pulse Ox O2 Del Method 12/30/21 07:31 36.8 C 74 18 118/74 97 Room Air 12/29/21 22:42 37.2 C 81 18 116/73 94 Room Air Laboratory Results 12/30/21 12/30/21 Range/Units 06:07 06:07 WBC 9.82 (4.8-10.8) K/ul RBC 3.79 L (3.93-5.22) M/uL Hgb 10.3 L (12.0-16.0) g/dl Hct 32.2 L (34.1-44.9) % MCV 85.0 (80.0-100.0) fL MCH 27.2 (25.0-34.0) pg MCHC 32.0 (32.0-36.0) g/dL RDW Std Deviation 40.7 (36.4-46.3) fL RDW Coeff of Gregory 13.2 (11.5-14.5) % Plt Count 539 H (130-400) K/uL MPV 10.4 (9.4-12.3) fL Sodium 138 (136-145) mmol/L Potassium 3.7 (3.5-5.1) mmol/L Chloride 106 (98-107) mmol/L Carbon Dioxide 25 (21-32) mmol/L Anion Gap 7 (3-11) BUN 4 L (6-23) mg/dl Creatinine 0.53 L (0.6-1.2) mg/dl Est Cr Clr Drug Dosing 129.4 ml/min Est GFR ( Amer) 132.0 ml/min Est GFR (Non-Af Amer) 113.9 ml/min BUN/Creatinine Ratio 7.5 L (10-20) Glucose 151 H (70-99(Fasting)) mg/dl Calcium 8.2 L (8.5-10.1) mg/dl Phosphorus 3.6 (2.5-4.9) mg/dl Magnesium 2.3 (1.7-2.4) mg/dl Medications Administered Current Inpatient Medications Acetaminophen (Acetaminophen 325 Mg Tab) 650 mg PO Q4H PRN PRN Reason: Pain or Fever Stop: 01/26/22 05:14 Last Admin: 12/27/21 17:30 Dose: 650 mg Hydrocortisone (Hydrocortisone Acetate 25 Mg Supp) 25 mg CO BID PRN PRN Reason: Hemorrhoids Stop: 01/27/22 20:45 Last Admin: 12/29/21 12:13 Dose: 25 mg Dextrose/Sodium Chloride (D5w And 1/2nss) 1,000 mls @ 100 mls/hr IV .Q10H KARLIE Stop: 01/26/22 05:14 Last Admin: 12/30/21 03:58 Dose: 125 mls/hr Ciprofloxacin (Cipro / D5w) 400 mg in 200 mls @ 100 mls/hr IV Q12H KARLIE; Protocol Stop: 01/06/22 18:29 Last Infusion: 12/30/21 07:55 Dose: Infused Metronidazole (Flagyl) 500 mg in 100 mls @ 100 mls/hr IV Q8H KARLIE Stop: 01/06/22 18:29 Last Infusion: 12/30/21 03:59 Dose: Infused Methylprednisolone 20 mg/ (Syringe) 0.32 mls @ 1.5 mls/min IV Q8H KARLIE Stop: 01/27/22 11:59 Last Admin: 12/30/21 04:52 Dose: 1.5 mls/min Morphine Sulfate (Morphine Sulfate 4 Mg/Ml 1 Ml Carp\Vial) 3 mg IV Q4H PRN PRN Reason: Pain Stop: 01/10/22 05:14 Nitroglycerin (Nitroglycerin Sl 0.4 Mg/Tab Tab) 0.4 mg SL UD PRN PRN Reason: Chest Pain Stop: 01/26/22 05:14 Ondansetron HCl (Ondansetron Inj 2 Mg/Ml 2 Ml Vial) 4 mg IV Q6H PRN PRN Reason: Nausea Stop: 01/26/22 05:14
[2021-12-30] MEDS ORDERED: POTASSIUM CHLORIDE PWD 20 MEQ PACK PO ONE (11:15)
--- NOTE | 2021-12-30 15:48 | Gastroenterology Progress Note ---
Date of Service December 30, 2021 Assessment & Plan (1) Ulcerative colitis: Plan 1. No clear indication for Cipro and Flagyl, may discontinue. 2. Continue prednisone. May transition to 40 mg daily p.o. 3. Advance diet to low residue, the patient is hesitant to advance her diet. 4. Pathology results were reviewed with the patient. Chronic chronic colitis, this is all suggestive of ulcerative colitis. I explained to the patient and her this morning that this is an autoimmune disease, that this is not caused by anything she is eating. 4. GI will sign off. Follow-up in the outpatient GI setting. Our office will call her to arrange follow-up most likely with Jeana Poole or Dr. Tyler Montenegro. Admission and Anticipated Discharge Date Admission Date: December 27, 2021 Supervising Physician Co-Signing Physician Notes I have personally seen and examined the patient with DEVIKA Gutierrez. Her note reflects my exam and findings. I agree with her impression and plan. Cont steroids and start 5ASA. Discussed with patient and at bedside. Arron Parisi M.D. Subjective 46-year-old female with rectal bleeding. Underwent colonoscopy 12/27 suggestive of left-sided ulcerative colitis. Path with chronic colitis. Treated with Cipro Flagyl and IV methylprednisone. Patient is resting quietly in bed she requests less blood draws and request having a break from IV fluids at night. These request were passed on to Dr. Crow Bobby. She appears well. She says her left-sided pain is much better and that she has less bowel movements and they are less bloody compared to yesterday. Review of Systems Review of Systems: ROS: Gen: Denies weakness, fevers, weight loss Eyes: No eye redness, or pain, no recent vision changes Resp: No SOB, no cough Cardio: No palpitations/irregular beats, no chest pain GI: Still with abdominal cramping in the epigastric and left mid abdomen after drinking clear liquids. Still 1 bloody bowel movement today, down from 4 yesterday. : Denies pain on urination Skin: No jaundice, itching or new rashes Physical Exam Constitutional: WD/WN, vitals as above Eyes: PERRL, conjunctivae normal, anicteric sclerae ENMT: external ear and nose normal, oropharynx normal Neck: trachea midline, no thyromegaly Respiratory: normal respiratory effort, lungs clear to auscultation Cardiovascular: RRR, no murmur, no edema Gastrointestinal (Abdomen): Abdomen is soft, nondistended, mild epigastric and left mid abdomen tenderness with deep palpation. Bowel sounds are active. Skin: no rashes, warm and dry Ecchymosis from blood draws on the left arm Neurologic: PERRL, EOMI, accommodation nl, no face palsy, no dysarthria Psychiatric: A+Ox3, euthymic affect Lymphatic: no cervical or axillary lymphadenopathy Results & Data ([facility]) Vital Signs (Past 12 Hours) Vital Signs Temp Pulse Resp BP Pulse Ox O2 Del Method 12/30/21 15:10 36.6 C 76 18 118/75 97 Room Air 12/30/21 07:31 36.8 C 74 18 118/74 97 Room Air Laboratory Results WBC 9.82, Hb 10.3, HCT 32.2, PLT S539, INR 1, NA 138, K3.7, CL 106, CO2 25, BUN 4, CR 0.53, glucose 151. C. difficile stools negative Diagnostic Findings Colonoscopy 12/27/2021 left-sided colitis and external hemorrhoids.
[2021-12-30] MEDS: ACETAMINOPHEN 325 MG TAB PO PRN (20:56)
[2021-12-30] MEDS: HYDROCORTISONE ACETATE 25 MG SUPP PR PRN (20:57)
[2021-12-31] MEDS: metroNIDAZOLE 500 MG/100 ML BAG IV SCH (02:46)
[2021-12-31] MEDS: methylPREDNISolone 20 MG in SYRINGE 0 ML IV SCH (03:49)
[2021-12-31] MEDS: CIPROFLOXACIN / D5W 400 MG/200 ML BAG IV SCH (06:48)
[2021-12-31] MEDS: MESALAMINE 400 MG CAPDR PO SCH ×3 (08:10→20:03)
[2021-12-31] MEDS: HYDROCORTISONE ACETATE 25 MG SUPP PR PRN (09:22)
--- NOTE | 2021-12-31 09:24 | Hospitalist Progress Note ---
Date of Service December 31, 2021 Assessment & Plan (1) Rectal bleed: Plan: Colitis - likely inflammatory This is a 46-year-old female who presents with rectal bleeding going for last 4 weeks. CAT scan showing colitis in the descending colon and rectosigmoid region, inflammatory or infectious. The patient took antibiotic, norfloxacin for 5 days last week that did not help her symptoms. Stool PCR panel - negative ESR, CRP levels - elevated at 39 and 8.26 respectively IV fluids, IV antiemetics, IV pain medications p.r.n. GI consulted s/p flex sig (12/27/21) Findings: The perianal exam findings include thrombosed external hemorrhoids. Normal mucosa was found in the transverse colon, in the ascending colon and in the cecum. Diffuse moderate inflammation characterized by altered vascularity, erosions, erythema, friability and granularity was found from rectum to splenic flexure. Biopsies were taken with a cold forceps for histology. Verification of patient identification for the specimen was done by the physician and nurse using the patient's name and date. Fluid aspiration for bacterial cultures and Clostridium difficile was performed. Impression: - Thrombosed external hemorrhoids found on perianal exam. - Left sided colitis. Biopsied. Fluid aspiration performed. Recommendation: - [facility] patient to [facility] for ongoing care. - Await pathology results. - Based on infectious panel will decide about therapy, if negative may need Steroids. - Refer to a surgeon to treat the thrombosed hemorrhoids now. - Follow up in GI office as OP. Pathology reviewed - FINAL DIAGNOSIS Colon, left, biopsy: - Chronic colitis with severe activity. - Negative for dysplasia. - See comment. Comment: The biopsies show a chronic colitis with severe activity (ulceration present). While not completely specific, the pattern of inflammation is in keeping with inflammatory bowel disease. Clinical correlation is recommended. Surgical service consulted - plan for outpt follow up as needed, no indication for acute intervention at this time Monitor H&H and electrolytes 12/27 6PM - pt developed fever 38C, started empiric Abx (cipro + flagyl). Discussed w/ Dr. Montenegro, also started solumedrol IV (60 daily) 12/31 -pathology reviewed and consistent with ulcerative colitis. GI started mesalamine, IV Solu-Medrol changed to prednisone 40 daily. PPI for prophylaxis also ordered. In the past days, bleeding much improved, and also abdominal pain much improved. Will stop antibiotics. Discussed with the patient to advance her diet. Also discussed prednisone taper, and GI follow-up in January. Patient may need to establish with PCP. Acute blood loss anemia and dilutional anemia - 2/2 GI bleed and IVF Hgb been stable ~10 -recheck H&H tmrw, no need for blood transfusion at this time DVT prophylaxis: SCDs Admission and Anticipated Discharge Date Admission Date: December 27, 2021 Subjective Pt seen in follow up of GI bleed Underwent flex sig w/ GI She is currently lying in bed, in no distress, reports some abdominal discomfort but currently much improved Reports darker blood per rectum today, and only one episode. Abdominal discomfort overall improved. Patient's at the bedside Patient speaks Mandarin, used software configuration manager via iPad Denies chest pain shortness of breath nausea vomiting, tolerating clear liquid diet Discussed that patient has follow-up with GI scheduled in January. And they recommend that she continues prednisone and mesalamine. Patient very hesitant to advance her diet. Discussed this in detail. Possible discharge tomorrow. Patient wished not to have a blood work done today, discussed with GI and we both agreed that we can recheck blood work tomorrow. Hemoglobin has been stable in the hospital. Review of Systems Review of Systems: All systems reviewed & are unremarkable except as noted in Subjective Physical Exam Physical Exam: GENERAL: The patient is of moderate build, not in acute distress. HEENT: NC/AT. EOMI, Pupils equal, round and reactive to light. Oral mucosa moist. NECK: No JVD, no neck masses. CARDIOVASCULAR: S1 and S2 heard. Regular rate and rhythm. No murmur, no gallop. RESPIRATORY: Normal AP diameter. No accessory muscle use. No wheezing, no crackles. ABDOMEN: Soft, bowel sounds present, mild tenderness to palp at LLQ (much improved), no distention. NEURO: Alert and awake. Answers appropriately. Speech fluent. Moves her extremities. EXTREMITIES: No edema, no erythema. Results & Data Results & Data ([facility]) Vital Signs (Past 12 Hours) Vital Signs Temp Pulse Resp BP Pulse Ox O2 Del Method 12/31/21 07:29 36.6 C 78 18 102/66 97 Room Air 12/30/21 23:00 36.9 C 75 18 113/75 96 Room Air Medications Administered Current Inpatient Medications Acetaminophen (Acetaminophen 325 Mg Tab) 650 mg PO Q4H PRN PRN Reason: Pain or Fever Stop: 01/26/22 05:14 Last Admin: 12/30/21 20:56 Dose: 650 mg Hydrocortisone (Hydrocortisone Acetate 25 Mg Supp) 25 mg CO BID PRN PRN Reason: Hemorrhoids Stop: 01/27/22 20:45 Last Admin: 12/30/21 20:57 Dose: 25 mg Ciprofloxacin (Cipro / D5w) 400 mg in 200 mls @ 100 mls/hr IV Q12H KARLIE; Protocol Stop: 01/06/22 18:29 Last Infusion: 12/31/21 09:01 Dose: Infused Metronidazole (Flagyl) 500 mg in 100 mls @ 100 mls/hr IV Q8H KARLIE Stop: 01/06/22 18:29 Last Infusion: 12/31/21 08:10 Dose: Infused Methylprednisolone 20 mg/ (Syringe) 0.32 mls @ 1.5 mls/min IV Q8H KARLIE Stop: 01/27/22 11:59 Last Admin: 12/31/21 03:49 Dose: 1.5 mls/min Mesalamine (Mesalamine 400 Mg Capdr) 800 mg PO TID AKRLIE Stop: 01/30/22 08:59 Last Admin: 12/31/21 08:10 Dose: 800 mg Morphine Sulfate (Morphine Sulfate 4 Mg/Ml 1 Ml Carp\Vial) 3 mg IV Q4H PRN PRN Reason: Pain Stop: 01/10/22 05:14 Nitroglycerin (Nitroglycerin Sl 0.4 Mg/Tab Tab) 0.4 mg SL UD PRN PRN Reason: Chest Pain Stop: 01/26/22 05:14 Ondansetron HCl (Ondansetron Inj 2 Mg/Ml 2 Ml Vial) 4 mg IV Q6H PRN PRN Reason: Nausea Stop: 01/26/22 05:14
[2021-12-31] MEDS ORDERED: predniSONE 20 MG TAB PO STA (09:31)
[2021-12-31] MEDS: PANTOprazole 40 MG TAB PO SCH (11:46)
--- NOTE | 2021-12-31 13:37 | Communication Note ---
Date of Service: December 31, 2021 Pt has newly diagnosed UC. Please discharge this patient on the following medications: Prednisone 10mg tabs, 4 tabs/day x 7 days, then 3 tabs/day x one month. Mesalamine 400mg 2 tabs 3x/day Diet: low fiber/soft; low dairy. [facility]
[2022-01-01 07:11] LABS: Hematocrit (blood only) 36.1 % (34.1-44.9); Hemoglobin 12.1 g/dl (12.0-16.0); Mean Corpuscular Hgb Conc 33.5 g/dL (32.0-36.0); Mean Corpuscular Volume 83.6 fL (80.0-100.0); Mean Platelet Volume 10.3 fL (9.4-12.3); Nucleated RBC # (auto) 0.02 K/uL (0-0); Nucleated RBC % (auto) 0.2 %; Platelet Count 589 K/uL (130-400); RDW Coefficient of Variation 13.3 % (11.5-14.5); RDW Standard Deviation 40.3 fL (36.4-46.3); Red Blood Count 4.32 M/uL (3.93-5.22); White Blood Count 10.46 K/ul (4.8-10.8)
[2022-01-01 07:32] LABS: Calcium 8.7 mg/dl (8.5-10.1); Creatinine Clr Calc Pharmacy 116.2 ml/min; Est GFR (African American) 127.4 ml/min; Est GFR (Non-African American) 109.9 ml/min; Magnesium 2.5 mg/dl (1.7-2.4); Phosphorus 3.6 mg/dl (2.5-4.9); Potassium 3.5 mmol/L (3.5-5.1)
[2022-01-01] MEDS: MESALAMINE 400 MG CAPDR PO SCH ×3 (08:14→19:29)
[2022-01-01] MEDS: PANTOprazole 40 MG TAB PO SCH (08:15)
[2022-01-01] MEDS: predniSONE 20 MG TAB PO SCH (10:04)
--- NOTE | 2022-01-01 10:48 | Hospitalist Progress Note ---
Date of Service January 01, 2022 Assessment & Plan (1) Rectal bleed: (2) Ulcerative colitis: Plan: Continue induction therapy with oral glucocorticoids and oral mesalamine. 46-year-old female with ongoing rectal bleeding for the past 4 weeks now with a new diagnosis of moderate ulcerative colitis. She is improving on steroids and mesalamine tablets. Continue both with steroid taper over the next month and close follow-up with GI. Flexible sigmoidoscopy was performed this admission on 12/27/2021. Patient also has thrombosed hemorrhoids externally and will need to follow-up with a colorectal surgeon. She appears to not be bothered by this currently. Some persistent bloating and recent initiation of food is causing her hesitation to go home at this time. No further rectal bleeding has been seen since 24 hours ago. We will continue to monitor symptoms and ensure she is tolerating p.o. consistently without significant symptoms prior to discharge home. Of note during this admission she had a stool PCR panel that was negative and elevated ESR and CRP levels. She had been noted to take norfloxacin for 5 days prior to arrival. (3) Acute blood loss anemia: Plan: Acute blood loss anemia present-resolved. She did not require blood transfusion. H&H is now 12.1/36.1. No further bleeding has been seen. (4) Thrombosed hemorrhoids: Plan: Will need to manage outpatient with colorectal surgeon. Obtain referral from primary care as needed. (5) DVT prophylaxis: Plan: Chemoprophylaxis contraindicated in setting of active bleed Full code Disposition-to home in next 1 to 2 days Verónica Paula DO [facility] Hospitalist Admission and Anticipated Discharge Date Admission Date: December 27, 2021 Subjective Denies any rectal bleeding since yesterday at noon. Had some sharp pain after bleeding Now reports bloating and some discomfort with low fiber diet but is tolerating food otherwise. Bloating and abdominal discomfort is localized into her left lower quadrant Patient noted that her left lower abdomen was slightly more swollen than her right lower abdomen I discussed the plan for prednisone taper and gave specific doses for this. We discussed that she will also be continuing mesalamine and that during her GI follow-up they will provide more medication based on her symptoms at that time We discussed that she has a primary care doctor appointment set up and we discussed the difference between these 2 doctors All the communication was through the Mandarin Martiniquais japanese interpreter and the was also present Both patient and verbalized understanding and all questions were answered to their satisfaction. Review of Systems Review of Systems: All systems reviewed negative except as indicated above. Physical Exam Physical Exam: CONSTITUTIONAL: WNWD, vitals as above, generally well- appearing, NAD EYES: normal conjunctivae, no scleral icterus ENT: external ear and nose normal, MMM NECK: trachea midline RESPIRATORY: clear to auscultation bilaterally, no crackles, rales or wheezes, normal respiratory effort CARDIOVASCULAR: regular rate and rhythm, S1 and 2 heard without murmurs, gallops or rubs, no JVD, no peripheral edema, CHEST: inspection of chest was normal GASTROINTESTINAL: soft, nontender, nondistended, hypoactive bowel sounds MUSCULOSKELETAL: strength 5/5 throughout, head is normocephalic and atraumatic SKIN: warm and dry NEUROLOGIC: CN 2-12 grossly intact, no sensory deficit, normal cognition, normal speech, no tremor PSYCHIATRIC: alert cooperative and oriented to person, place and time. Results & Data Results & Data ([facility]) Vital Signs (Past 12 Hours) Vital Signs Temp Pulse Resp BP Pulse Ox O2 Del Method 01/01/22 07:35 37.3 C 86 18 101/71 96 Room Air Laboratory Results Short CBC 01/01/22 Range/Units 06:26 WBC 10.46 (4.8-10.8) K/ul Hgb 12.1 (12.0-16.0) g/dl Hct 36.1 (34.1-44.9) % Plt Count 589 H (130-400) K/uL BMP 01/01/22 06:26 Sodium 137 Potassium 3.5 Chloride 104 Carbon Dioxide 27 BUN 13 Creatinine 0.59 L Glucose 89 Calcium 8.7 Medications Administered Current Inpatient Medications Acetaminophen (Acetaminophen 325 Mg Tab) 650 mg PO Q4H PRN PRN Reason: Pain or Fever Stop: 01/26/22 05:14 Last Admin: 12/30/21 20:56 Dose: 650 mg Hydrocortisone (Hydrocortisone Acetate 25 Mg Supp) 25 mg HI BID PRN PRN Reason: Hemorrhoids Stop: 01/27/22 20:45 Last Admin: 12/31/21 09:22 Dose: 25 mg Mesalamine (Mesalamine 400 Mg Capdr) 800 mg PO TID KARLIE Stop: 01/30/22 08:59 Last Admin: 01/01/22 08:14 Dose: 800 mg Morphine Sulfate (Morphine Sulfate 4 Mg/Ml 1 Ml Carp\Vial) 3 mg IV Q4H PRN PRN Reason: Pain Stop: 01/10/22 05:14 Nitroglycerin (Nitroglycerin Sl 0.4 Mg/Tab Tab) 0.4 mg SL UD PRN PRN Reason: Chest Pain Stop: 01/26/22 05:14 Ondansetron HCl (Ondansetron Inj 2 Mg/Ml 2 Ml Vial) 4 mg IV Q6H PRN PRN Reason: Nausea Stop: 01/26/22 05:14 Pantoprazole Sodium (Pantoprazole 40 Mg Tab) 40 mg PO QAM [facility] Stop: 01/30/22 09:29 Last Admin: 01/01/22 08:15 Dose: 40 mg Prednisone (Prednisone 20 Mg Tab) 40 mg PO DAILY [facility] Stop: 01/31/22 08:59 Last Admin: 01/01/22 10:04 Dose: 40 mg
[2022-01-01] MEDS: HYDROCORTISONE ACETATE 25 MG SUPP PR PRN (13:08)
[2022-01-02] MEDS ORDERED: MESALAMINE 400 MG CAPDR PO SCH
[2022-01-02] MEDS ORDERED: BUDESONIDE EC 3 MG CAP PO SCH
[2022-01-02] MEDS: PANTOprazole 40 MG TAB PO SCH (08:14)
[2022-01-02] MEDS: predniSONE 20 MG TAB PO SCH (08:14)
[2022-01-02] MEDS: MESALAMINE 400 MG CAPDR PO SCH ×2 (08:15→13:59)
[2022-01-02 08:43] LABS: Hematocrit (blood only) 38.1 % (34.1-44.9); Hemoglobin 12.6 g/dl (12.0-16.0); Mean Corpuscular Hemoglobin 27.7 pg (25.0-34.0); Mean Corpuscular Hgb Conc 33.1 g/dL (32.0-36.0); Mean Corpuscular Volume 83.7 fL (80.0-100.0); Mean Platelet Volume 10.1 fL (9.4-12.3); Platelet Count 630 K/uL (130-400); RDW Coefficient of Variation 13.2 % (11.5-14.5); Red Blood Count 4.55 M/uL (3.93-5.22); White Blood Count 8.83 K/ul (4.8-10.8)
[2022-01-02 09:09] LABS: BUN Creatinine Ratio 26.9 (10-20); C Reactive Protein 3.05 mg/dl (0-0.5); Calcium 8.8 mg/dl (8.5-10.1); Creatinine Clr Calc Pharmacy 102.3 ml/min; Est GFR (African American) 122.2 ml/min; Est GFR (Non-African American) 105.4 ml/min; Potassium 3.5 mmol/L (3.5-5.1)
[2022-01-02] MEDS: HYDROCORTISONE ACETATE 25 MG SUPP PR PRN (12:20)
--- NOTE | 2022-01-02 16:04 | Discharge Summary ---
Discharge Summary Date of Service January 02, 2022 Notes For Next Care Provider -Please ensure she is tolerating the new medications -she was found to have thrombosed hemorrhoids and needs to see a colorectal specialist to get these treated; needs a referral -she needs to follow-up with [facility] to ensure induction therapy is working and transition her medical therapy when appropriate. 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 The patient says since the last 4 weeks she is having rectal bleed and it is getting progressively worse, now every 4-5 hours. She has been getting abdominal pain of about 6/10 in severity then she has to move her bowels. After moving the bowels, the pain decreases to 2/10 and it has been ongoing for last 4 weeks. She is currently also having her menstrual periods 3rd day. Denies any nausea or vomiting. No fevers, but lately she is feeling cold. Appetite is down. No recent weight gain or weight loss. Denies any chest pain. When she came to the hospital, she felt short of breath with exertion attributes it to not moving much for last few weeks.. She states her both legs are also sore because she is not ambulating much since the last few weeks. Denies any headache, no dizziness, no blurred visions, no earache, no runny nose, no sore throat, no cough, no difficulty swallowing. No neck pain, no back pain. The patient says she has similar episode several years ago and she was told she has internal hemorrhoids. In last March and April also, she had rectal bleeding and and assumed her hemorrhoids. No family history of similar kind of symptoms. No recent travel.Since her symptoms not improving, she took the antibiotic norfloxacin 5 days last week, but that did not help with her symptoms. Admission Exam Per Admitting Provider PHYSICAL EXAMINATION: GENERAL: The patient is of moderate build, not in acute distress. VITAL SIGNS: Temperature 36.8, pulse 106, respiratory rate 18, blood pressure 196/76, oxygen 97% on room air. HEENT: Pupils equal, round and reactive to light. Oral mucosa moist. NECK: No JVD, no neck masses. CARDIOVASCULAR: S1 and S2 heard. Regular rate and rhythm. No murmur, no gallop. RESPIRATORY SYSTEM: Normal AP diameter. No accessory muscle use. No wheezing, no crackles. ABDOMEN: Soft, bowel sounds present, nontender, no distention. CENTRAL NERVOUS SYSTEM: Alert and awake. Obeys simple commands. Moves her extremities. EXTREMITIES: No edema, no erythema. Principal Dx & Hospital Course #1 = Principal Diagnosis (1) Ulcerative colitis: 46-year-old female with ongoing rectal bleeding for the past 4 weeks now with a new diagnosis of moderate ulcerative colitis. Colonoscopy with biopsy was performed this admission on 12/27/2021. She was started on induction therapy with steroids and mesalamine tablets with improvement. She did have a reaction of afternoon sweating on the prednisone, and this was switched to budesonide. Patient also has thrombosed hemorrhoids externally and will need to follow-up with a colorectal surgeon as outpatient. Some persistent bloating and recent initiation of food kept her in the hospital initially, but by time of discharge she denied pain or bloating and was tolerating solid food reliably. She did mention ongoing mucous and slight blood that was improved in her stool. CRP improved from 8 to 3 with therapy. She was discharged in stable condition wtih close primary care follow-up and followup with GI. All interactions were performed using a [employer]arin [employer] top helper through the language line, and with her present to ask questions. (2) Acute blood loss anemia: (3) Thrombosed hemorrhoids: Discharge Exam Constitutional CONSTITUTIONAL: WNWD, vitals as above, generally well-appearing, NAD EYES: normal conjunctivae, no scleral icterus ENT: external ear and nose normal, MMM NECK: trachea midline RESPIRATORY: clear to auscultation bilaterally, no crackles, rales or wheezes, normal respiratory effort CARDIOVASCULAR: regular rate and rhythm, S1 and 2 heard without murmurs, gallops or rubs, no JVD, no peripheral edema, CHEST: inspection of chest was normal GASTROINTESTINAL: soft, nontender, nondistended, normal bowel sounds MUSCULOSKELETAL: strength 5/5 throughout, head is normocephalic and atraumatic SKIN: warm and dry NEUROLOGIC: CN 2-12 grossly intact, no sensory deficit, normal cognition, normal speech, no tremor PSYCHIATRIC: alert cooperative and oriented to person, place and time. Updated Medication List Medication Instructions Recorded Confirmed Type budesonide 9 mg capsule,extended 9 mg PO DAILY #30 caps 01/02/22 Rx release mesalamine 4 gram/60 mL enema 4 g (60 mL) [place] HS #840 mL 01/02/22 Rx mesalamine 400 mg capsule (with 800 mg PO TID #180 ea 01/02/22 Rx delayed release tablets inside) ([facility]) Hospital Stay Data Consultations 12/27/21 03:29 ED Decision to Admit Stat 12/27/21 08:00 Consult Gastroenterology Routine 12/27/21 13:25 Consult General Surgery Routine Procedures Performed Operation Date: 12/27/21 15:00 <No data on this case meets the specified criteria> Operation Date: 12/27/21 16:30 Actual Procedures p Colonoscopy Biopsy Cytology - Tyler Montenegro MD Diagnostic Imagining Performed 12/26/21 23:34 CT abd pelvis IV con only Urgent Pending Results Patient Have Any Pending Studies at Discharge: No Discharge Instructions Given to Patient (Per Discharging Provider) Please take all medications as instructed on discharge list below. You are being placed on two medications to reduce disease activity in your bowels. BUDESONIDE should be taken once daily. MESALAMINE, please take 800mg three times daily (pill form) You will also need to do enemas of MESALAMINE every night for two weeks. Please stick to a low fiber, low dairy diet until you are feeling better. Please see your [facility] Iron[facility] on January 13 at 12:15pm. You are scheduled with DEVIKA Cruz You also have a primary care follow-up appointment with Dr. Richards at the date and time listed below. It was a pleasure taking care of you! Please call if you have any questions or problems. You can reach a [facility] hospitalist on duty at [facility] 24 hours a day by calling [phone]. Take care of yourself. Verónica Paula, [facility] Hospitalist Total Time Total Time Spent Total Time Spent (In Minutes): 60
== END 2022-01-02 16:35 | disposition home or self-care (01) | DRG 386 ==
LOC: ED 19:41 → SUATTDRO 12-27 04:30 → EDINP 12-27 04:30 → 2N 12-27 17:15
DX: Z88.0 Allergy status to penicillin; K64.5 Perianal venous thrombosis; D62 Acute posthemorrhagic anemia; K92.2 Gastrointestinal hemorrhage, unspecified; K51.90 Ulcerative colitis, unspecified, without complications

== ENCOUNTER 2022-01-08 21:37 | Inpatient (IN) ==
[2022-01-08] MEDS ORDERED: ACETAMINOPHEN 1,000 MG/100 ML VIAL IV STA (23:54)
[2022-01-08] MEDS ORDERED: SODIUM CHLORIDE 0.9% 1000ML 1,000 ML IV STA (23:54)
[2022-01-09] MEDS ORDERED: SODIUM CHLORIDE 0.9% 1000ML 2,000 ML IV ONE
[2022-01-09 00:54] LABS: Hematocrit (blood only) 34.3 % (34.1-44.9); Hemoglobin 11.4 g/dl (12.0-16.0); Mean Corpuscular Hemoglobin 27.7 pg (25.0-34.0); Mean Corpuscular Hgb Conc 33.2 g/dL (32.0-36.0); Mean Corpuscular Volume 83.5 fL (80.0-100.0); Platelet Count 543 K/uL (130-400); RDW Coefficient of Variation 13.2 % (11.5-14.5); RDW Standard Deviation 40.2 fL (36.4-46.3); Red Blood Count 4.11 M/uL (3.93-5.22); White Blood Count 8.43 K/ul (4.8-10.8)
[2022-01-09 01:11] LABS: Basophils # (auto) 0.05 K/uL (0-0.2); Basophils % (auto) 0.6 %; Eosinophils # (auto) 0.25 K/uL (0-0.50); Immature Granulocytes # (auto) 0.04 K/uL (0.00-0.02); Immature Granulocytes % (auto) 0.5 %; Lymphocytes # (auto) 1.67 K/uL (1.2-3.4); Lymphocytes % (auto) 19.8 %; Monocytes # (auto) 1.34 K/uL (0.24-0.82); Monocytes % (auto) 15.9 %; Neutrophils # (auto) 5.08 K/uL (1.4-6.5); Neutrophils % (auto) 60.2 %
[2022-01-09 01:17] LABS: Influenza A virus by PCR Negative (Neg); Influenza B virus by PCR Negative (Neg); RSV by PCR Negative (Neg); SARS CoV2 RNA(COVID-19) InHosp NEGATIVE (Negative)
--- NOTE | 2022-01-09 01:27 | Emergency Department Note ---
Impression & Plan Ulcerative colitis, Fever ED Provider Note CHIEF COMPLAINT: Fever, nausea, diarrhea HISTORY OF PRESENT ILLNESS: This 46-year-old female patient presents to the emergency department with complaints of fever, nausea and diarrhea. The patient contacted her primary care physician and was instructed to come to the emergency department however her fever had resolved. She felt as though she would wait. Today the fever returned and thus she is here for evaluation. The patient states she was admitted last week with complaints of a GI bleed. She had a colonoscopy and was told she had colitis with bleeding internal hemorrhoids. She developed a fever over the last 2 days. Patient states her stools have been largely yellow with occasionally dark blood. She denies any bright red blood. She states the abdomen hurts all over but mostly in the left lower quadrant and suprapubic region. She does have some occasional sharp pain with urination but no frequency or urgency. REVIEW OF SYSTEMS: A review of systems was performed with positives and pertinent negatives listed in the history of present illness. 10 systems were reviewed and are otherwise negative. ALLERGIES: see below MEDICATIONS: see below PMH: see below SOCIAL HISTORY: see below DDx: Gastroenteritis, food borne illness, infections, appendicitis, diverticulitis, inflammatory bowel disease, obstruction, GI bleed, biliary pathology, volvulus, as well as other pathologies. PHYSICAL EXAM: Vital signs reviewed. General: Well-appearing 46-year-old female, in no significant distress. HEENT: No scleral icterus, PERRLA, neck supple. Atraumatic. Cardiovascular: Regular rate and rhythm, no extra sounds. Pulmonary: Clear to auscultation bilaterally, normal work of breathing. Abdomen: Soft, tender to palpation in the left lower quadrant and suprapubic region, nondistended, positive bowel sounds. Musculoskeletal: Atraumatic, no peripheral edema. Neurologic: Patient awake alert and oriented x 3 Skin: Warm, dry, no rash EMERGENCY DEPARTMENT COURSE/MDM: This patient was evaluated and appeared to be in no significant distress. There was some delay in evaluation as the speech language therapist line was not available for [facility]. Several reattempts were made at accessing and [facility] customer services manager but unsuccessful although the language line was functioning properly. Patient's stated he spoke Urdu fairly well and felt comfortable interpreting her visit for the patient. Patient agreed and also felt comfortable. IV access was obtained and laboratory work was drawn. The patient was hydrated with normal saline solution. Previous records were reviewed. CT imaging was performed given the patient's increasing pain, cyclic fevers and continued bleeding. Patient was medicated with Solu-Medrol 60 mg IV. Hemoglobin appears to be fairly stable. Patient was periodically hypotensive and remained quite tachycardic in the emergency department. Her case was discussed with the [facility] hospitalist for admission and further management. Patient and expressed understanding of the plan and agreed. MONITORING: An order for cardiac monitoring was placed and the patient is noted to be in a sinus tachycardia at 111 beats per minute. RADIOLOGY: see below DISPOSITION: Admission Past Med/Surg History Medical History (Updated 01/14/22 @ 07:44 by Carly Gomez MD) Acute blood loss anemia Colitis GI bleed Hemorrhoids Ulcerative colitis Social History Smoking Status: Never smoker Second Hand Exposure: No; Do You Dip or Chew Tobacco: No; Tobacco Cessation Education Requested by Patient: No Hx Alcohol Use: Yes Hx Substance Use: No Preferred [facility] Communication Ability: Effective Communication Tools: [facility] Coordinator Required: Video and Voice Beliefs That Will Affect Care: None marital status: Current Living Situation: Spouse Other Information That Helps Us Care for You: No Feels Safe at Home: Yes Safety Concerns: Feels Safe At This Time Assistive Devices: None Allergies Allergies Allergy/AdvReac Type Severity Reaction Status Date / Time Penicillins AdvReac Unknown Verified 01/08/22 21:48 Home Meds Previous Rx's Medication Instructions Recorded ciprofloxacin HCl 500 mg tablet 500 mg PO BID #1 tab 01/16/22 lidocaine 5 % topical ointment 1 applic EXT BID PRN pain #50 grams 01/16/22 mesalamine 4 gram/60 mL enema 4 g (60 mL) WA HS #840 mL 01/16/22 mesalamine 400 mg capsule (with 800 mg PO TID #180 ea 01/16/22 delayed release tablets inside) (Delzicol) metronidazole 500 mg tablet 500 mg PO TID #1 tab 01/16/22 pantoprazole 40 mg tablet,delayed 40 mg PO QAM #30 tabs 01/16/22 release prednisone 10 mg tablet 10 mg PO UD #77 tabs 01/16/22 prednisone 5 mg tablet 5 mg PO UD #12 tabs 01/16/22 Results & Data (ED) Vital Signs Vital Signs - 24 hr 01/08/22 21:38 01/08/22 22:13 01/08/22 22:53 Temperature 36.1 C L 37.1 C Temperature Source Temporal Artery Scan Oral Pulse Rate 137 H Pulse Rate [Apical] 111 H Respiratory Rate 18 20 Blood Pressure 111/81 Blood Pressure [Right Arm] 111/72 Blood Pressure Mean 91 Blood Pressure Mean [Right Arm] 85 Pulse Oximetry 97 98 Oxygen Delivery Method Room Air Room Air Sepsis Recent Fever Within 48 Hours Yes Sepsis New/Unexplained Change in Mental Status No Sepsis Action Taken by Nursing No Action Required Home Medications Current Medication List: was personally reviewed by me Laboratory Data Attestation: I reviewed the patient's lab results. Result diagrams: 01/16/22 05:36 01/16/22 05:36 Lab Results 01/09/22 01/09/22 01/09/22 Range/Units 00:43 00:43 00:43 WBC 8.43 (4.8-10.8) K/ul RBC 4.11 (3.93-5.22) M/uL Hgb 11.4 L (12.0-16.0) g/dl Hct 34.3 (34.1-44.9) % MCV 83.5 (80.0-100.0) fL MCH 27.7 (25.0-34.0) pg MCHC 33.2 (32.0-36.0) g/dL RDW Std Deviation 40.2 (36.4-46.3) fL RDW Coeff of Gregory 13.2 (11.5-14.5) % Plt Count 543 H (130-400) K/uL MPV 10.0 (9.4-12.3) fL Immature Gran % (Auto) 0.5 % Neut % (Auto) 60.2 % Lymph % (Auto) 19.8 % Upton % (Auto) 15.9 % Eos % (Auto) 3.0 % Baso % (Auto) 0.6 % Neut # (Auto) 5.08 (1.4-6.5) K/uL Lymph # (Auto) 1.67 (1.2-3.4) K/uL Upton # (Auto) 1.34 H (0.24-0.82) K/uL Eos # (Auto) 0.25 (0-0.50) K/uL Baso # (Auto) 0.05 (0-0.2) K/uL Immature Gran # (Auto) 0.04 H (0.00-0.02) K/uL Sodium 133 L (136-145) mmol/L Potassium 3.4 L (3.5-5.1) mmol/L Chloride 100 (98-107) mmol/L Carbon Dioxide 20 L (21-32) mmol/L Anion Gap 13 H (3-11) BUN 8 (6-23) mg/dl Creatinine 0.48 L (0.6-1.2) mg/dl Est Cr Clr Drug Dosing 137.9 ml/min Est GFR ( Amer) 136.3 ml/min Est GFR (Non-Af Amer) 117.6 ml/min BUN/Creatinine Ratio 16.7 (10-20) Glucose 76 (70-99(Fasting)) mg/dl Calcium 8.2 L (8.5-10.1) mg/dl Magnesium 2.1 (1.7-2.4) mg/dl Total Bilirubin 0.4 (0.2-1.0) mg/dl AST 18 (13-39) U/L ALT 37 (7-52) U/L Alkaline Phosphatase 64 (34-104) U/L Total Protein 6.8 (6.0-8.3) gm/dl Albumin 3.3 L (3.4-5.0) gm/dl Globulin 3.5 (2.5-4.0) gm/dl Albumin/Globulin Ratio 0.9 (0.9-2) Administered Medications Discontinued Medications Cholestyramine Resin (Cholestyramine Light 4 Gm Pkt) 4 gm PO DAILY@1000 KARLIE Stop: 02/14/22 13:29 Last Admin: 01/16/22 10:54 Dose: 4 gm Documented By: Admin: 01/15/22 14:20 Dose: 4 gm Documented By: MADHAVI(2) Ciprofloxacin (Ciprofloxacin 500 Mg Tab) 500 mg PO BID KARLIE Stop: 01/16/22 20:59 Last Admin: 01/16/22 08:20 Dose: 500 mg Documented By: Admin: 01/15/22 22:04 Dose: 500 mg Documented By: Admin: 01/15/22 08:45 Dose: 500 mg Documented By: MADHAVI(2) Admin: 01/14/22 22:02 Dose: 500 mg Documented By: Admin: 01/14/22 09:09 Dose: 500 mg Documented By: Admin: 01/13/22 22:11 Dose: 500 mg Documented By: MELINDA Nitroglycerin 7.5 inch/Emollient Ointment 67.5 gm/BARCODE IDENTIFIER 1 each 0 inch EXT BID KARLIE Stop: 02/08/22 14:29 Last Admin: 01/16/22 08:20 Dose: Not Given Documented By: Admin: 01/15/22 22:04 Dose: 1 appln Documented By: Admin: 01/15/22 08:41 Dose: Not Given Documented By: MADHAVI(2) Admin: 01/14/22 22:04 Dose: Not Given Documented By: Admin: 01/14/22 09:09 Dose: Not Given Documented By: Admin: 01/13/22 21:17 Dose: Not Given Documented By: Admin: 01/13/22 08:14 Dose: Not Given Documented By: Admin: 01/12/22 21:31 Dose: Not Given Documented By: Admin: 01/12/22 07:28 Dose: Not Given Documented By: Admin: 01/11/22 22:34 Dose: Not Given Documented By: Admin: 01/11/22 08:59 Dose: Not Given Documented By: Admin: 01/10/22 22:04 Dose: Not Given Documented By: Admin: 01/10/22 08:47 Dose: Not Given Documented By: Admin: 01/09/22 22:34 Dose: 1 appln Documented By: Admin: 01/09/22 14:37 Dose: Not Given Documented By: CARRI Sodium Chloride (Nss 1000ml) 1,000 mls @ 999 mls/hr IV .Q1H1M STA Stop: 01/09/22 00:54 Last Admin: 01/09/22 05:21 Dose: Not Given Documented By: ASHLEIGH Acetaminophen (Ofirmev) 1,000 mg in 100 mls @ 400 mls/hr IV NOW STA Stop: 01/09/22 00:08 Last Infusion: 01/09/22 01:20 Dose: 0 mls/hr Documented By: Admin: 01/09/22 01:03 Dose: 400 mls/hr Documented By: ASHLEIGH Sodium Chloride (Nss 1000ml) 2,000 mls @ 999 mls/hr IV .Q2H1M ONE Stop: 01/09/22 02:00 Last Infusion: 01/09/22 04:45 Dose: 0 mls/hr Documented By: Infusion: 01/09/22 01:49 Dose: 999 mls/hr Documented By: Admin: 01/09/22 01:03 Dose: 999 mls/hr Documented By: ASHLEIGH Lactated Ringer's (Lr) 1,000 mls @ 200 mls/hr IV .Q5H ONE Stop: 01/09/22 10:00 Last Infusion: 01/09/22 11:03 Dose: 0 mls/hr Documented By: Admin: 01/09/22 05:52 Dose: 200 mls/hr Documented By: ASHLEIGH Ciprofloxacin (Cipro / D5w) 400 mg in 200 mls @ 100 mls/hr IV NOW STA; Protocol Stop: 01/09/22 07:25 Last Infusion: 01/09/22 11:15 Dose: 0 mls/hr Documented By: Admin: 01/09/22 06:45 Dose: 100 mls/hr Documented By: ASHLEIGH Metronidazole (Flagyl) 500 mg in 100 mls @ 100 mls/hr IV NOW STA Stop: 01/09/22 06:25 Last Infusion: 01/09/22 07:24 Dose: 0 mls/hr Documented By: Admin: 01/09/22 05:52 Dose: 100 mls/hr Documented By: ASHLEIGH Ciprofloxacin (Cipro / D5w) 400 mg in 200 mls @ 100 mls/hr IV Q12H KARLIE; Protocol Stop: 01/19/22 17:59 Last Infusion: 01/13/22 08:14 Dose: 0 mls/hr Documented By: Admin: 01/13/22 06:04 Dose: 100 mls/hr Documented By: Infusion: 01/12/22 19:51 Dose: 0 mls/hr Documented By: Admin: 01/12/22 17:51 Dose: 100 mls/hr Documented By: Infusion: 01/12/22 10:15 Dose: 0 mls/hr Documented By: Admin: 01/12/22 07:24 Dose: 100 mls/hr Documented By: Infusion: 01/11/22 19:30 Dose: 0 mls/hr Documented By: Admin: 01/11/22 17:20 Dose: 100 mls/hr Documented By: Infusion: 01/11/22 09:15 Dose: 0 mls/hr Documented By: Admin: 01/11/22 07:03 Dose: 100 mls/hr Documented By: Infusion: 01/10/22 20:35 Dose: 0 mls/hr Documented By: Admin: 01/10/22 17:58 Dose: 100 mls/hr Documented By: Infusion: 01/10/22 08:45 Dose: 0 mls/hr Documented By: Admin: 01/10/22 06:29 Dose: 100 mls/hr Documented By: Infusion: 01/09/22 20:16 Dose: 0 mls/hr Documented By: Admin: 01/09/22 17:21 Dose: 100 mls/hr Documented By: CARRI Metronidazole (Flagyl) 500 mg in 100 mls @ 100 mls/hr IV Q8H KARLIE Stop: 01/19/22 13:59 Last Infusion: 01/13/22 14:30 Dose: 0 mls/hr Documented By: Admin: 01/13/22 12:59 Dose: 100 mls/hr Documented By: Infusion: 01/13/22 06:05 Dose: 0 mls/hr Documented By: Admin: 01/13/22 05:05 Dose: 100 mls/hr Documented By: Infusion: 01/12/22 22:46 Dose: 0 mls/hr Documented By: Admin: 01/12/22 21:46 Dose: 100 mls/hr Documented By: Infusion: 01/12/22 16:09 Dose: 0 mls/hr Documented By: Admin: 01/12/22 15:03 Dose: 100 mls/hr Documented By: Infusion: 01/12/22 08:00 Dose: 0 mls/hr Documented By: Admin: 01/12/22 06:10 Dose: 100 mls/hr Documented By: Infusion: 01/11/22 23:36 Dose: 0 mls/hr Documented By: Admin: 01/11/22 22:36 Dose: 100 mls/hr Documented By: Infusion: 01/11/22 15:27 Dose: 0 mls/hr Documented By: Admin: 01/11/22 14:13 Dose: 100 mls/hr Documented By: Infusion: 01/11/22 07:04 Dose: 0 mls/hr Documented By: Admin: 01/11/22 06:03 Dose: 100 mls/hr Documented By: Infusion: 01/10/22 23:23 Dose: 0 mls/hr Documented By: Admin: 01/10/22 22:05 Dose: 100 mls/hr Documented By: Infusion: 01/10/22 14:45 Dose: 0 mls/hr Documented By: Admin: 01/10/22 13:41 Dose: 100 mls/hr Documented By: Infusion: 01/10/22 07:01 Dose: 0 mls/hr Documented By: Admin: 01/10/22 06:01 Dose: 100 mls/hr Documented By: Infusion: 01/10/22 02:37 Dose: 0 mls/hr Documented By: Admin: 01/09/22 22:38 Dose: 100 mls/hr Documented By: Infusion: 01/09/22 15:41 Dose: 0 mls/hr Documented By: Admin: 01/09/22 14:41 Dose: 100 mls/hr Documented By: CARRI Methylprednisolone 20 mg/ (Syringe) 0.32 mls @ 1.5 mls/min IV Q8H KARLIE Stop: 02/09/22 07:59 Last Admin: 01/11/22 08:50 Dose: 1.5 mls/min Documented By: Admin: 01/10/22 23:22 Dose: 1.5 mls/min Documented By: Admin: 01/10/22 16:26 Dose: 1.5 mls/min Documented By: Admin: 01/10/22 08:45 Dose: 1.5 mls/min Documented By: DAKSHA Lactated Ringer's (Lr) 1,000 mls @ 80 mls/hr IV .[id number] KARLIE Stop: 02/09/22 09:59 Last Infusion: 01/11/22 20:04 Dose: 0 mls/hr Documented By: Admin: 01/11/22 11:53 Dose: 80 mls/hr Documented By: Infusion: 01/11/22 11:52 Dose: 0 mls/hr Documented By: Admin: 01/10/22 23:22 Dose: 80 mls/hr Documented By: Infusion: 01/10/22 22:58 Dose: 80 mls/hr Documented By: Admin: 01/10/22 10:28 Dose: 80 mls/hr Documented By: DAKSHA Methylprednisolone 40 mg/ (Syringe) 0.64 mls @ 1.5 mls/min IV Q8H KARLIE Stop: 02/10/22 12:42 Last Admin: 01/13/22 05:05 Dose: 1.5 mls/min Documented By: Admin: 01/12/22 21:31 Dose: 1.5 mls/min Documented By: Admin: 01/12/22 15:03 Dose: 1.5 mls/min Documented By: Admin: 01/12/22 06:07 Dose: 1.5 mls/min Documented By: Admin: 01/11/22 22:35 Dose: 1.5 mls/min Documented By: Admin: 01/11/22 14:13 Dose: 1.5 mls/min Documented By: JESUS Methylprednisolone 20 mg/ (Syringe) 0.32 mls @ 1.5 mls/min IV Q8H KARLIE Stop: 02/12/22 13:59 Last Admin: 01/14/22 05:29 Dose: 1.5 mls/min Documented By: Admin: 01/13/22 21:12 Dose: 1.5 mls/min Documented By: Admin: 01/13/22 12:59 Dose: 1.5 mls/min Documented By: CHUYITA Ioversol (Ioversol 350 Mg 100ml Prefilled Syringe) 94 ml IV ONCE ONE Stop: 01/09/22 03:51 Last Admin: 01/10/22 15:06 Dose: Not Given Documented By: DAKSHA Lidocaine (Lidocaine 5% Oint 30 Gm Tube) 1 appln EXT BID KARLIE Stop: 02/08/22 12:59 Last Admin: 01/16/22 08:21 Dose: Not Given Documented By: Admin: 01/15/22 22:06 Dose: 1 appln Documented By: Admin: 01/15/22 08:41 Dose: Not Given Documented By: MADHAVI(2) Admin: 01/14/22 22:02 Dose: Not Given Documented By: Admin: 01/14/22 09:09 Dose: Not Given Documented By: Admin: 01/13/22 21:17 Dose: Not Given Documented By: Admin: 01/13/22 09:49 Dose: Not Given Documented By: Admin: 01/12/22 21:30 Dose: Not Given Documented By: Admin: 01/12/22 07:28 Dose: Not Given Documented By: Admin: 01/11/22 22:50 Dose: Not Given Documented By: Admin: 01/11/22 08:55 Dose: Not Given Documented By: Admin: 01/10/22 22:02 Dose: 1 appln Documented By: Admin: 01/10/22 08:46 Dose: Not Given Documented By: Admin: 01/09/22 19:47 Dose: 1 appln Documented By: Admin: 01/09/22 14:37 Dose: Not Given Documented By: CARRI Mesalamine (Mesalamine 800 Mg Tabcr) 800 mg PO TID KARLIE Stop: 02/08/22 13:59 Last Admin: 01/11/22 15:29 Dose: Not Given Documented By: Admin: 01/11/22 08:51 Dose: 800 mg Documented By: Admin: 01/10/22 22:03 Dose: 800 mg Documented By: Admin: 01/10/22 13:42 Dose: 800 mg Documented By: Admin: 01/10/22 08:47 Dose: 800 mg Documented By: Admin: 01/09/22 21:09 Dose: 800 mg Documented By: Admin: 01/09/22 14:41 Dose: 800 mg Documented By: CARRI Mesalamine (Mesalamine 4 Gm/60 Ml Enema) 4 gm WA HS KARLIE Stop: 02/08/22 20:59 Last Admin: 01/15/22 22:07 Dose: 4 gm Documented By: Admin: 01/14/22 22:03 Dose: 4 gm Documented By: Admin: 01/13/22 22:11 Dose: 4 gm Documented By: Admin: 01/12/22 21:31 Dose: 4 gm Documented By: Admin: 01/11/22 22:52 Dose: 4 gm Documented By: Admin: 01/10/22 22:04 Dose: Not Given Documented By: Admin: 01/09/22 22:34 Dose: 4 gm Documented By: TREVER Mesalamine (Mesalamine 800 Mg Tabcr) 800 mg PO TID@0900,1600,2100 KARLIE Stop: 02/10/22 15:59 Last Admin: 01/16/22 08:20 Dose: 800 mg Documented By: Admin: 01/15/22 22:04 Dose: 800 mg Documented By: Admin: 01/15/22 16:59 Dose: 800 mg Documented By: MADHAVI(2) Admin: 01/15/22 08:44 Dose: 800 mg Documented By: MADHAVI(2) Admin: 01/14/22 22:03 Dose: 800 mg Documented By: Admin: 01/14/22 15:06 Dose: 800 mg Documented By: Admin: 01/14/22 09:09 Dose: 800 mg Documented By: Admin: 01/13/22 22:10 Dose: 800 mg Documented By: Admin: 01/13/22 17:13 Dose: 800 mg Documented By: Admin: 01/13/22 08:13 Dose: 800 mg Documented By: Admin: 01/12/22 21:31 Dose: 800 mg Documented By: Admin: 01/12/22 15:26 Dose: 800 mg Documented By: Admin: 01/12/22 07:28 Dose: 800 mg Documented By: Admin: 01/11/22 22:34 Dose: 800 mg Documented By: Admin: 01/11/22 16:03 Dose: 800 mg Documented By: JESUS Methylprednisolone (Methylprednisolone 125 Mg/2 Ml Vial) 60 mg IV NOW STA Stop: 01/09/22 04:13 Last Admin: 01/09/22 04:50 Dose: 60 mg Documented By: ASHLEIGH Metronidazole (Metronidazole 500 Mg Tab) 500 mg PO TID KARLIE Stop: 01/16/22 20:59 Last Admin: 01/16/22 13:28 Dose: 500 mg Documented By: Admin: 01/16/22 08:20 Dose: 500 mg Documented By: Admin: 01/15/22 22:03 Dose: 500 mg Documented By: Admin: 01/15/22 13:20 Dose: 500 mg Documented By: MADHAVI(2) Admin: 01/15/22 08:44 Dose: 500 mg Documented By: MADHAVI(2) Admin: 01/14/22 22:04 Dose: 500 mg Documented By: Admin: 01/14/22 15:06 Dose: 500 mg Documented By: Admin: 01/14/22 09:09 Dose: 500 mg Documented By: Admin: 01/13/22 22:11 Dose: 500 mg Documented By: MELINDA Pantoprazole Sodium (Pantoprazole 40 Mg Tab) 40 mg PO QAM [facility] Stop: 02/13/22 09:59 Last Admin: 01/16/22 08:20 Dose: 40 mg Documented By: Admin: 01/15/22 08:44 Dose: 40 mg Documented By: MADHAVI(2) Admin: 01/14/22 11:35 Dose: 40 mg Documented By: MADHAVI Potassium Chloride (Potassium Chloride Crtab 20 Meq Tabcr) 40 meq PO NOW STA Stop: 01/09/22 05:01 Last Admin: 01/09/22 11:14 Dose: Not Given Documented By: PREMA Prednisone (Prednisone 20 Mg Tab) 40 mg PO DAILY KARLIE Stop: 02/13/22 09:59 Last Admin: 01/16/22 08:20 Dose: 40 mg Documented By: Admin: 01/15/22 08:44 Dose: 40 mg Documented By: MADHAVI(2) Admin: 01/14/22 11:35 Dose: 40 mg Documented By: MADHAVI Imaging Data Radiologist's Impression: Chest X-Ray 01/08/22 23:55 XR chest 1V portable HISTORY: Fever COMPARISON: None. FINDINGS: The lungs are clear. Cardiac silhouette is normal in size. No pleural effusions. No pneumothorax. IMPRESSION: No acute process. ACT 112: Negative or not required by law. Electronically signed by: Rafael Teague M.D. 01/09/2022 8:43 AM Abdomen/Pelvis CT 01/09/22 02:59 CT abd pelvis IV con only CLINICAL HISTORY: ulcerative colitis, fever TECHNIQUE: Helical axial images of the abdomen and pelvis were obtained and displayed. Automated dose lowering techniques and/or adjustment according to patient size were utilized for this exam. This exam was performed with intravenous contrast. CT DOSE: 405.70 mGy.cm COMPARISON: Comparison is made to CT abdomen pelvis 12/27/2021 FINDINGS: Lower chest: No acute abnormality Liver: Unremarkable. No focal lesions are seen. Gallbladder and biliary tree: No calcified gallstones. Normal caliber wall. No intra- or extrahepatic biliary ductal dilation. Pancreas: Unremarkable, no focal lesions. Spleen: Unremarkable. Adrenals: Unremarkable. Kidneys and ureters: Unremarkable. Bladder: Unremarkable. Reproductive organs: Wall thickening and edema with surrounding fat stranding is seen involving the distal transverse colon, descending, and sigmoid colon. The appendix is normal. Bowel: Unremarkable. Lymph nodes Retroperitoneal: Subcentimeter lymph nodes are noted. Pelvic: Unremarkable. Mesenteric: Subcentimeter lymph nodes are noted. Peritoneum: Mild fat stranding is again noted in the left hemicolon. Vessels: Unremarkable. Abdominal wall: Unremarkable. Bones: Unremarkable. IMPRESSION: Redemonstration of colitis in the descending and sigmoid colon in this patient with history of ulcerative colitis. No fluid collection or pneumoperitoneum. ACT 112: Negative or not required by law. Electronically signed by: Eder Marinelli M.D. 01/09/2022 10:03 AM Blood Pressure Blood Pressure Findings: Normal blood pressure Blood Pressure Disposition: did not require urgent referral Discharge Plan Visit Data Chief Complaint: Fever Stated Complaint: FEVER ED Provider: Carly Gomez Discharge Problem: Ulcerative colitis, Fever Patient Disposition: Admitted As Inpatient Discharge Instructions Interventions: ED Discharge Assessment Last Done: 01/09/22 12:17 : Ulcerative colitis Qualifiers: Ulcerative colitis location: ulcerative rectosigmoiditis Digestive disease complication type: with rectal bleeding Qualified Code(s): K51.311 - Ulcerative (chronic) rectosigmoiditis with rectal bleeding Fever Qualifiers: Fever type: due to other condition Qualified Code(s): R50.81 - Fever presenting with conditions classified elsewhere
[2022-01-09 01:29] LABS: Albumin Globulin Ratio 0.9 (0.9-2); Albumin Level 3.3 gm/dl (3.4-5.0); BUN Creatinine Ratio 16.7 (10-20); Bilirubin,Total 0.4 mg/dl (0.2-1.0); Calcium 8.2 mg/dl (8.5-10.1); Creatinine Clr Calc Pharmacy 137.9 ml/min; Est GFR (African American) 136.3 ml/min; Est GFR (Non-African American) 117.6 ml/min; Globulin 3.5 gm/dl (2.5-4.0); Potassium 3.4 mmol/L (3.5-5.1); Total Protein 6.8 gm/dl (6.0-8.3)
[2022-01-09] MEDS ORDERED: IOVERSOL 350 MG 100mL Prefilled Syringe IV ONE (03:50)
[2022-01-09] MEDS ORDERED: methylPREDNISolone 125 MG/2 ML VIAL IV STA (04:12)
[2022-01-09] MEDS ORDERED: POTASSIUM CHLORIDE CRTAB 20 MEQ TABCR PO STA (05:00)
[2022-01-09] MEDS ORDERED: LACTATED RINGER'S 1,000 ML IV ONE (05:01)
--- NOTE | 2022-01-09 05:04 | History & Physical Report ---
Date of Service January 09, 2022 Assessment & Plan (1) Ulcerative colitis: Plan: IBD flareup Possible infection Rule out C. difficile Hypokalemia secondary to diarrhea/poor p.o. intake Medical telemetry Clear liquid diet IV steroids for now Cipro Flagyl Stool C. difficile GI consult Re: IBD flareup Replace potassium DVT prophylaxis. SCDs Re: Lower GI bleed Full code Patient requesting updates from providers. Mr. Shahab Overton, contact #[phone]. Text document was generated using [employer] voice recognition software. It may contain grammatical or spelling errors. Kindly contact undersigned for clarification of any documentation item in question. History of Present Illness Chief Complaint: Worsening abdominal pain, bloody diarrhea, fever Primary Care Provider: Dr. Richards History obtained from patient, family, and records. History somewhat limited from patient secondary to language barrier. Medical history significant for recent diagnosis of ulcerative colitis. Last confinement 2 weeks ago for lower GI bleed attributed to new diagnosis of ulcerative colitis. Patient started on induction therapy with steroids and mesalamine tablets with improvemen patient discharged on t. Budesonide and oral mesalamine Rx. Thrombosed external hemorrhoids noted on colonoscopy. Patient instructed to follow-up with colorectal surgeon outpatient. Persistent blood-streaked diarrhea at home. Increasing weakness noted last week on follow-up with PCP. No chest pain, no shortness of breath. 2 days ago, patient noted worsening left-sided abdominal discomfort with fever 100.1. Nausea symptoms. Patient directed to ER by PCP. Solu-Medrol administered at the ER. 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 Allergies Allergy/AdvReac Type Severity Reaction Status Date / Time Penicillins AdvReac Unknown Verified 01/08/22 21:48 Home Medications Medication Instructions Recorded Confirmed Type budesonide 9 mg capsule,extended 9 mg PO DAILY #30 caps 01/02/22 01/08/22 Rx release mesalamine 4 gram/60 mL enema 4 g (60 mL) AR HS #840 mL 01/02/22 01/08/22 Rx mesalamine 400 mg capsule (with 800 mg PO TID #180 ea 01/02/22 01/08/22 Rx delayed release tablets inside) (Delzicol) Past Med/Surg History Medical History (Updated 01/09/22 @ 07:45 by José Giles MD) Acute blood loss anemia Colitis GI bleed Hemorrhoids Ulcerative colitis Social History Smoking Status: Never smoker Second Hand Exposure: No; Hx Alcohol Use: Yes Hx Substance Use: No Preferred Language: Mandarin Tajik Communication Ability: Effective Special Librarian Required: No Beliefs That Will Affect Care: None marital status: Current Living Situation: Spouse Feels Safe at Home: Yes Assistive Devices: None Review of Systems Review of Systems: As per HPI, all other systems reviewed and negative Physical Exam Physical Exam: GENERAL: Comfortable, slightly anxious, no respiratory distress SKIN: Pallor, warm HEENT: Pale palpebral conjunctivae, no ptosis, dry buccal mucosa NECK : Supple, no tenderness CHEST : CTA, no tenderness HEART : RRR, no obvious murmurs ABDOMEN: Some distention, hypogastric tenderness EXTREMITIES : No LE swelling/tenderness, no other conspicuous deformities noted NEUROLOGIC : Coherent, no facial asymmetry, no other gross focality Results & Data Results & Data ([facility]) Vital Signs (Past 12 Hours) Vital Signs Temp Pulse Pulse Resp BP BP Pulse Ox 01/09/22 04:14 101 H 18 99/51 L 97 01/09/22 04:00 101 H 14 96 01/09/22 04:00 85/49 L 01/09/22 03:57 105 H 97 01/09/22 02:30 109 H 23 103/65 96 01/09/22 02:30 103/65 01/09/22 02:03 108 H 21 96 01/09/22 01:30 107 H 21 99/61 L 97 01/09/22 01:00 113 H 16 97/59 L 01/09/22 00:31 113 H 23 97 01/09/22 00:00 114 H 29 H 98 01/08/22 23:30 113 H 27 H 97 01/08/22 23:00 114 H 27 H 98 01/08/22 22:30 110 H 6 L 128/83 96 01/08/22 22:13 112 H 22 111/72 98 01/08/22 22:53 37.1 C 01/08/22 22:13 111 H 20 111/72 98 01/08/22 21:38 36.1 C L 137 H 18 111/81 97 O2 Del Method 01/09/22 04:14 01/09/22 04:00 01/09/22 04:00 01/09/22 03:57 01/09/22 02:30 01/09/22 02:30 01/09/22 02:03 01/09/22 01:30 01/09/22 01:00 01/09/22 00:31 01/09/22 00:00 01/08/22 23:30 01/08/22 23:00 01/08/22 22:30 01/08/22 22:13 01/08/22 22:53 01/08/22 22:13 Room Air 01/08/22 21:38 Room Air Laboratory Results Laboratory Results WBC 8.43 K/ul (4.8-10.8) 01/09/22 00:43 RBC 4.11 M/uL (3.93-5.22) 01/09/22 00:43 Hgb 11.4 g/dl (12.0-16.0) L 01/09/22 00:43 Hct 34.3 % (34.1-44.9) 01/09/22 00:43 MCV 83.5 fL (80.0-100.0) 01/09/22 00:43 MCH 27.7 pg (25.0-34.0) 01/09/22 00:43 MCHC 33.2 g/dL (32.0-36.0) 01/09/22 00:43 RDW Std Deviation 40.2 fL (36.4-46.3) 01/09/22 00:43 RDW Coeff of Gregory 13.2 % (11.5-14.5) 01/09/22 00:43 Plt Count 543 K/uL (130-400) H 01/09/22 00:43 MPV 10.0 fL (9.4-12.3) 01/09/22 00:43 Immature Gran % (Auto) 0.5 % 01/09/22 00:43 Neut % (Auto) 60.2 % 01/09/22 00:43 Lymph % (Auto) 19.8 % 01/09/22 00:43 [place] % (Auto) 15.9 % 01/09/22 00:43 Eos % (Auto) 3.0 % 01/09/22 00:43 Baso % (Auto) 0.6 % 01/09/22 00:43 Neut # (Auto) 5.08 K/uL (1.4-6.5) 01/09/22 00:43 Lymph # (Auto) 1.67 K/uL (1.2-3.4) 01/09/22 00:43 [place] # (Auto) 1.34 K/uL (0.24-0.82) H 01/09/22 00:43 Eos # (Auto) 0.25 K/uL (0-0.50) 01/09/22 00:43 Baso # (Auto) 0.05 K/uL (0-0.2) 01/09/22 00:43 Immature Gran # (Auto) 0.04 K/uL (0.00-0.02) H 01/09/22 00:43 Sodium 133 mmol/L (136-145) L 01/09/22 00:43 Potassium 3.4 mmol/L (3.5-5.1) L 01/09/22 00:43 Chloride 100 mmol/L (98-107) 01/09/22 00:43 Carbon Dioxide 20 mmol/L (21-32) L 01/09/22 00:43 Anion Gap 13 (3-11) H 01/09/22 00:43 BUN 8 mg/dl (6-23) 01/09/22 00:43 Creatinine 0.48 mg/dl (0.6-1.2) L 01/09/22 00:43 Est Cr Clr Drug Dosing 137.9 ml/min 01/09/22 00:43 Est GFR ( Amer) 136.3 ml/min 01/09/22 00:43 Est GFR (Non-Af Amer) 117.6 ml/min 01/09/22 00:43 BUN/Creatinine Ratio 16.7 (10-20) 01/09/22 00:43 Glucose 76 mg/dl (70-99(Fasting)) 01/09/22 00:43 Calcium 8.2 mg/dl (8.5-10.1) L 01/09/22 00:43 Total Bilirubin 0.4 mg/dl (0.2-1.0) 01/09/22 00:43 AST 18 U/L (13-39) 01/09/22 00:43 ALT 37 U/L (7-52) 01/09/22 00:43 Alkaline Phosphatase 64 U/L (34-104) 01/09/22 00:43 Total Protein 6.8 gm/dl (6.0-8.3) 01/09/22 00:43 Albumin 3.3 gm/dl (3.4-5.0) L 01/09/22 00:43 Globulin 3.5 gm/dl (2.5-4.0) 01/09/22 00:43 Albumin/Globulin Ratio 0.9 (0.9-2) 01/09/22 00:43 SARS-CoV-2 (PCR) NEGATIVE (Negative) 01/09/22 Unknown Influenza Type A (PCR) Negative (Neg) 01/09/22 Unknown Influenza Type B (PCR) Negative (Neg) 01/09/22 Unknown RSV (RT-PCR) Negative (Neg) 01/09/[address] abdomen pelvis initial read: Unchanged appearance of the left colon. Diffuse thickening and enhancement of the colonicwall from the rectumto the splenic flexure, with a tubular appearance. There is submucosal fat in the rectum. There is no visible stricture. There is no abscess. There is no free air. The terminal ileumis normal. The remainder of the small and large bowel are normal. No other abnormalityin the abdomen or pelvis. Findings favor ulcerative colitis. Differential considerations also include infective, ischemic and radiation colitis. Chest x-ray as per interpretation atelectasis
[2022-01-09] MEDS ORDERED: metroNIDAZOLE 500 MG/100 ML BAG IV STA (05:26)
[2022-01-09] MEDS ORDERED: CIPROFLOXACIN / D5W 400 MG/200 ML BAG IV STA (05:26)
[2022-01-09 06:57] LABS: Pregnancy Test, Urine Negative (Negative)
[2022-01-09 07:27] LABS: Appearance Urine Clear (Clear); Bilirubin Urine Negative (Negative); Blood Urine Negative (Negative); Color Urine Yellow; Glucose Urine UA Negative (Negative); Ketones Urine 4+ (Negative); Leukocyte Esterase Urine Negative (Negative); Nitrite Urine Negative (Negative); Protein Urine Negative (Negative); Specific Gravity Urine > 1.045 (1.000-1.030); Urobilinogen Urine Negative (Negative); pH Urine 5.5 (4.5-7.5)
--- NOTE | 2022-01-09 08:44 | XRay Report ---
XR chest 1V portable HISTORY: Fever COMPARISON: None. FINDINGS: The lungs are clear. Cardiac silhouette is normal in size. No pleural effusions. No pneumot horax. IMPRESSION: No acute process. ACT 112: Negative or not required by law. Electronically signed by: Rafael Teague M.D. 01/09/2022 8:43 AM
--- NOTE | 2022-01-09 10:05 | CT Scan Report ---
CT abd pelvis IV con only CLINICAL HISTORY: ulcerative colitis, fever TECHNIQUE: Helical axial images of the abdomen and pelvis were obtained and displayed. Automated dose lowering techniques and/or adjustment according to patient size were utilized for this exam. This e xam was performed with intravenous contrast. CT DOSE: 405.70 mGy.cm COMPARISON: Comparison is made to CT abdomen pelvis 12/27/2021 FINDINGS: Lower chest: No acute abnormality Liver: Unremarkable. No focal lesions are seen. Gallbladder and biliary tree: No calcified gallstones. Normal caliber wall. No intra- or extrahepatic biliary ductal dilation. Pancreas: Unremarkable, no focal lesions. Spleen: Unremarkable. Adrenals: Unremarkable. Kidneys and ureters: Unremarkable. Bladder: Unremarkable. Reproductive organs: Wall thickening and edema with surrounding fat stranding is seen involving the d istal transverse colon, descending, and sigmoid colon. The appendix is normal. Bowel: Unremarkable. Lymph nodes Retroperitoneal: Subcentimeter lymph nodes are noted. Pelvic: Unremarkable. Mesenteric: Subcentimeter lymph nodes are noted. Peritoneum: Mild fat stranding is again noted in the left hemicolon. Vessels: Unremarkable. Abdominal wall: Unremarkable. Bones: Unremarkable. IMPRESSION: Redemonstration of colitis in the descending and sigmoid colon in this patient with history of ulcera tive colitis. No fluid collection or pneumoperitoneum. ACT 112: Negative or not required by law. Electronically signed by: Eder Marinelli M.D. 01/09/2022 10:03 AM
--- NOTE | 2022-01-09 11:03 | Gastrointestinal Consultation ---
Date of Consultation January 09, 2022 Assessment & Plan (1) Ulcerative colitis: (2) Fever: Pt is a 46 yo female newly dx'd with L sided UC, hemorrhoids, returned to ED w c/o fever (38.3C). She was taking PO and SC Mesalamine as well as Budesonide after her DC a week ago. She was having less amt of nocturnal diarrhea and less rectal bleeding. - Mesalamine 800mg TID - Rowasa 4g SC HS - Check stool cx, Cdiff - Methylprednisolone 20mg IV TID - Diet as tolerated - IVF support and symptomatic management otherwise. History of Present Illness Reason for Consultation: Colitis Requesting Physician: Dr. José Giles Attending Physician: Dr. Catherine Bernabe History of Present Illness Pt is Mandarin speaking, visit interview conducted with materials management clerk. Pt is a 46 yo female who was newly diagnosed w UC (L sided), hemorrhoids, discharged recently with Mesalamine PO, SC and Budesonide, who presented to ED w c/o fever. Reports 3 days ago had temp of 38.3C, took Tylenol and at night temp went down to 37.7C. She reports that after her last hospitalization, she was having 3-4 nocturnal diarrhea, now down to 1-2x a overnight. She is seeing less amount of rectal bleeding. She is still having L sided abd pain. Mild nausea, low appetite. No CP, SOB. CT abd/pelvis 01/09/22: Redemonstration of colitis in the descending and sigmoid colon in this patient with history of ulcerative colitis. No fluid collection or pneumoperitoneum. CXR 01/08/2022: unremarkable. Allergies Allergy/AdvReac Type Severity Reaction Status Date / Time Penicillins AdvReac Unknown Verified 01/08/22 21:48 Home Medications Medication Instructions Recorded Confirmed Type budesonide 9 mg capsule,extended 9 mg PO DAILY #30 caps 01/02/22 01/08/22 Rx release mesalamine 4 gram/60 mL enema 4 g (60 mL) SC HS #840 mL 01/02/22 01/08/22 Rx mesalamine 400 mg capsule (with 800 mg PO TID #180 ea 01/02/22 01/08/22 Rx delayed release tablets inside) (Delzicol) Patient History Medical History (Updated 01/09/22 @ 11:15 by DEVIKA Olvera) Acute blood loss anemia Colitis GI bleed Hemorrhoids Ulcerative colitis Social History Smoking Status: Never smoker Second Hand Exposure: No; Hx Alcohol Use: Yes Hx Substance Use: No Preferred Language: Mandarin Niuean Communication Ability: Effective Auto Body Repairman Required: No Beliefs That Will Affect Care: None marital status: Current Living Situation: Spouse Feels Safe at Home: Yes Assistive Devices: None Review of Systems Review of Systems: All systems reviewed & are unremarkable except as noted in HPI & below Physical Exam Constitutional: WD/WN, vitals as above well groomed, cooperative and comfortable Eyes: PERRL, conjunctivae normal, anicteric sclerae ENMT: external ear and nose normal, oropharynx normal Respiratory: normal respiratory effort, lungs clear to auscultation Cardiovascular: RRR, no murmur, no edema Gastrointestinal (Abdomen): normal bowel sounds, soft, nontender, no hepatosplenomegaly Skin: no rashes, warm and dry no jaundice Neurologic: Motor/Sensory: no asterixis Psychiatric: A+Ox3, euthymic affect Lymphatic: no lymphedema Results & Data ([facility]) Vital Signs (Past 12 Hours) Vital Signs Pulse Resp BP Pulse Ox 01/09/22 05:30 101 H 18 114/69 01/09/22 04:22 105 H 17 103/61 98 01/09/22 04:14 101 H 18 99/51 L 97 01/09/22 04:00 101 H 14 96 01/09/22 04:00 85/49 L 01/09/22 03:57 105 H 97 01/09/22 02:30 109 H 23 103/65 96 01/09/22 02:30 103/65 01/09/22 02:03 108 H 21 96 01/09/22 01:30 107 H 21 99/61 L 97 01/09/22 01:00 113 H 16 97/59 L 01/09/22 00:31 113 H 23 97 01/09/22 00:00 114 H 29 H 98 01/08/22 23:30 113 H 27 H 97
--- NOTE | 2022-01-09 12:30 | Hospitalist Progress Note ---
Date of Service January 09, 2022 Assessment & Plan (1) Ulcerative colitis: Plan: Patient was diagnosed last admission with ulcerative colitis. Colonoscopy with biopsy was done on 12/27. Comes in with increased frequency of diarrhea and fever. CT abdomen pelvis on admission shows colitis in the descending and sigmoid colon Plan; Started on a trial of prednisone 20 mg 3 times a day for ulcerative colitis flare up. -- Rowasa 4 g per rectal along with mesalamine 800 mg 3 times daily. - We will start full liquid diet and advance as tolerated Stop IV fluids after she tolerates diet. C. difficile and GI PCR panel ordered - Obtain CBC, BMP, CRP and ESR in a.m. (2) Hemorrhoids: Plan: Found to have thrombosed hemorrhoids on colonoscopy last admission. Reports pain currently. Plan; Lidocaine jelly and nitroglycerin topical to be applied and will see response. Will consider surgery consult if pain persist. Plan SCDs for DVT prophylaxis Full code DispoHome after resolution of medical issues. Subjective Patient seen and examined at bedside. Tractor Trailer Mechanic used to communicate with the patient. Patient is lying on the bed; not in any distress. She had 1 episode of bloody bowel movement at 3 AM in the morning. She complains of cramping abdominal pain. at bedside. Review of Systems Review of Systems: All systems reviewed & are unremarkable except as noted in Subjective Physical Exam Physical Exam: Constitutional: WD/WN, vitals as above, NAD, sitting up in bed, pleasant, conversing easily Respiratory: normal respiratory effort, lungs clear to auscultation, no wheeze, rales, rhonchi. Normal insp/exp effort, no accessory muscle use Cardiovascular: RRR, no murmur, no edema Vessels: no JVD or carotid bruit Chest: normal inspection of chest Abdomen: Soft, nontender. Bowel sounds present. External hemorrhoids present Musculoskeletal: no cyanosis or clubbing, extremities motor strength 5/5 Skin: no rashes, warm and dry normal turgor Neurologic: PERRL, EOMI, accommodation nl, no face palsy, no dysarthria CN's II- XI intact bilaterally and moves all extremities Psychiatric: A+Ox3, euthymic affect Lymphatic: no cervical or axillary lymphadenopathy : deferred Results & Data Results & Data ([facility]) Vital Signs (Past 12 Hours) Vital Signs Temp Pulse Pulse Resp BP Pulse Ox O2 Del Method 01/09/22 12:17 99 H 18 104/67 99 Room Air 01/09/22 11:00 37.0 C 98 H 20 100 Room Air 01/09/22 05:30 101 H 18 114/69 01/09/22 04:22 105 H 17 103/61 98 01/09/22 04:14 101 H 18 99/51 L 97 01/09/22 04:00 101 H 14 96 01/09/22 04:00 85/49 L 01/09/22 03:57 105 H 97 01/09/22 02:30 109 H 23 103/65 96 01/09/22 02:30 103/65 01/09/22 02:03 108 H 21 96 01/09/22 01:30 107 H 21 99/61 L 97 01/09/22 01:00 113 H 16 97/59 L 01/09/22 00:31 113 H 23 97 Laboratory Results Laboratory Results WBC 8.43 K/ul (4.8-10.8) 01/09/22 00:43 RBC 4.11 M/uL (3.93-5.22) 01/09/22 00:43 Hgb 11.4 g/dl (12.0-16.0) L 01/09/22 00:43 Hct 34.3 % (34.1-44.9) 01/09/22 00:43 MCV 83.5 fL (80.0-100.0) 01/09/22 00:43 MCH 27.7 pg (25.0-34.0) 01/09/22 00:43 MCHC 33.2 g/dL (32.0-36.0) 01/09/22 00:43 RDW Std Deviation 40.2 fL (36.4-46.3) 01/09/22 00:43 RDW Coeff of Gregory 13.2 % (11.5-14.5) 01/09/22 00:43 Plt Count 543 K/uL (130-400) H 01/09/22 00:43 MPV 10.0 fL (9.4-12.3) 01/09/22 00:43 Immature Gran % (Auto) 0.5 % 01/09/22 00:43 Neut % (Auto) 60.2 % 01/09/22 00:43 Lymph % (Auto) 19.8 % 01/09/22 00:43 Carbon % (Auto) 15.9 % 01/09/22 00:43 Eos % (Auto) 3.0 % 01/09/22 00:43 Baso % (Auto) 0.6 % 01/09/22 00:43 Neut # (Auto) 5.08 K/uL (1.4-6.5) 01/09/22 00:43 Lymph # (Auto) 1.67 K/uL (1.2-3.4) 01/09/22 00:43 Carbon # (Auto) 1.34 K/uL (0.24-0.82) H 01/09/22 00:43 Eos # (Auto) 0.25 K/uL (0-0.50) 01/09/22 00:43 Baso # (Auto) 0.05 K/uL (0-0.2) 01/09/22 00:43 Immature Gran # (Auto) 0.04 K/uL (0.00-0.02) H 01/09/22 00:43 Sodium 133 mmol/L (136-145) L 01/09/22 00:43 Potassium 3.4 mmol/L (3.5-5.1) L 01/09/22 00:43 Chloride 100 mmol/L (98-107) 01/09/22 00:43 Carbon Dioxide 20 mmol/L (21-32) L 01/09/22 00:43 Anion Gap 13 (3-11) H 01/09/22 00:43 BUN 8 mg/dl (6-23) 01/09/22 00:43 Creatinine 0.48 mg/dl (0.6-1.2) L 01/09/22 00:43 Est Cr Clr Drug Dosing 137.9 ml/min 01/09/22 00:43 Est GFR ( Amer) 136.3 ml/min 01/09/22 00:43 Est GFR (Non-Af Amer) 117.6 ml/min 01/09/22 00:43 BUN/Creatinine Ratio 16.7 (10-20) 01/09/22 00:43 Glucose 76 mg/dl (70-99(Fasting)) 01/09/22 00:43 Lactate 0.4 mmol/L (0.4-2.0) 01/09/22 06:30 Calcium 8.2 mg/dl (8.5-10.1) L 01/09/22 00:43 Magnesium 2.1 mg/dl (1.7-2.4) 01/09/22 00:43 Total Bilirubin 0.4 mg/dl (0.2-1.0) 01/09/22 00:43 AST 18 U/L (13-39) 01/09/22 00:43 ALT 37 U/L (7-52) 01/09/22 00:43 Alkaline Phosphatase 64 U/L (34-104) 01/09/22 00:43 Total Protein 6.8 gm/dl (6.0-8.3) 01/09/22 00:43 Albumin 3.3 gm/dl (3.4-5.0) L 01/09/22 00:43 Globulin 3.5 gm/dl (2.5-4.0) 01/09/22 00:43 Albumin/Globulin Ratio 0.9 (0.9-2) 01/09/22 00:43 Urine Color Yellow 01/09/22 Unknown Urine Appearance Clear (Clear) 01/09/22 Unknown Urine pH 5.5 (4.5-7.5) 01/09/22 Unknown Ur Specific [place] > 1.045 (1.000-1.030) H 01/09/22 Unknown Urine Protein Negative (Negative) 01/09/22 Unknown Urine Glucose (UA) Negative (Negative) 01/09/22 Unknown Urine Ketones 4+ (Negative) H 01/09/22 Unknown Urine Blood Negative (Negative) 01/09/22 Unknown Urine Nitrite Negative (Negative) 01/09/22 Unknown Urine Bilirubin Negative (Negative) 01/09/22 Unknown Urine Urobilinogen Negative (Negative) 01/09/22 Unknown Ur Leukocyte Esterase Negative (Negative) 01/09/22 Unknown Urine Test Negative (Negative) 01/09/22 Unknown SARS-CoV-2 (PCR) NEGATIVE (Negative) 01/09/22 Unknown Influenza Type A (PCR) Negative (Neg) 01/09/22 Unknown Influenza Type B (PCR) Negative (Neg) 01/09/22 Unknown RSV (RT-PCR) Negative (Neg) 01/09/22 Unknown Impressions Chest X-Ray 01/08/22 23:55 XR chest 1V portable HISTORY: Fever COMPARISON: None. FINDINGS: The lungs are clear. Cardiac silhouette is normal in size. No pleural effusions. No pneumothorax. IMPRESSION: No acute process. ACT 112: Negative or not required by law. Electronically signed by: Rafael Teague M.D. 01/09/2022 8:43 AM Abdomen/Pelvis CT 01/09/22 02:59 CT abd pelvis IV con only CLINICAL HISTORY: ulcerative colitis, fever TECHNIQUE: Helical axial images of the abdomen and pelvis were obtained and displayed. Automated dose lowering techniques and/or adjustment according to p atient size were utilized for this exam. This exam was performed with intravenous contrast. CT DOSE: 405.70 mGy.cm COMPARISON: Comparison is made to CT abdomen pelvis 12/27/2021 FINDINGS: Lower chest: No acute abnormality Liver: Unremarkable. No focal lesions are seen. Gallbladder and biliary tree: No calcified gallstones. Normal caliber wall. No intra- or extrahepatic biliary ductal dilation. Pancreas: Unremarkable, no focal lesions. Spleen: Unremarkable. Adrenals: Unremarkable. Kidneys and ureters: Unremarkable. Bladder: Unremarkable. Reproductive organs: Wall thickening and edema with surrounding fat stranding is seen involving the distal transverse colon, descending, and sigmoid colon. The appendix is normal. Bowel: Unremarkable. Lymph nodes Retroperitoneal: Subcentimeter lymph nodes are noted. Pelvic: Unremarkable. Mesenteric: Subcentimeter lymph nodes are noted. Peritoneum: Mild fat stranding is again noted in the left hemicolon. Vessels: Unremarkable. Abdominal wall: Unremarkable. Bones: Unremarkable. IMPRESSION: Redemonstration of colitis in the descending and sigmoid colon in this patient with history of ulcerative colitis. No fluid collection or pneumoperitoneum. ACT 112: Negative or not required by law. Electronically signed by: Eder Marinelli M.D. 01/09/2022 10:03 AM
[2022-01-09] MEDS ORDERED: LORazepam 0.5 MG TAB PO PRN (13:09)
[2022-01-09] MEDS ORDERED: traMADol HCL 50 MG TABLET PO PRN (13:09)
[2022-01-09] MEDS ORDERED: PROMETHAZINE HCL 12.5 MG in SODIUM CHLORIDE 0.9% 50 ML IV PRN (13:09)
[2022-01-09] MEDS ORDERED: ACETAMINOPHEN 325 MG TAB PO PRN (13:09)
[2022-01-09] MEDS: NITROGLYCERIN 2% 7.5 INCH, AQUAPHOR 67.5 GM, BARCODE IDENTIFIER 1 EACH EXT SCH ×2 (14:37→22:34)
[2022-01-09] MEDS: LIDOCAINE 5% OINT 30 GM TUBE EXT SCH ×2 (14:37→19:47)
[2022-01-09] MEDS: metroNIDAZOLE 500 MG/100 ML BAG IV SCH ×2 (14:41→22:38)
[2022-01-09] MEDS: MESALAMINE 800 MG TABCR PO SCH ×2 (14:41→21:09)
[2022-01-09] MEDS: CIPROFLOXACIN / D5W 400 MG/200 ML BAG IV SCH (17:21)
[2022-01-09 20:40] LABS: Adenovirus F 40/41 PCR Not Detected (NotDetected); Astrovirus PCR Not Detected (NotDetected); Campylobacter PCR Not Detected (NotDetected); Clostridium diff Toxin A/B PCR Not Detected (NotDetected); Cryptosporidium PCR Not Detected (NotDetected); Cyclospora cayetanensis PCR Not Detected (NotDetected); Entamoeba histolytica PCR Not Detected (NotDetected); Enteroaggregative E.coli(EAEC) Not Detected (NotDetected); Enteropathogenic E.coli (EPEC) Not Detected (NotDetected); Enterotoxigenic E.coli (ETEC) Not Detected (NotDetected); Giardia lamblia PCR Not Detected (NotDetected); Norovirus GI/GII PCR Not Detected (NotDetected); Plesiomonas shigelloides PCR Not Detected (NotDetected); Rotavirus A PCR Not Detected (NotDetected); Salmonella PCR Not Detected (NotDetected); Sapovirus PCR Not Detected (NotDetected); Shiga-like Toxin E.coli (STEC) Not Detected (NotDetected); Shigella/Enteroinvasive E.coli Not Detected (NotDetected); Vibrio cholerae PCR Not Detected (NotDetected); Vibrio species PCR Not Detected (NotDetected); Yersinia enterocolitica PCR Not Detected (NotDetected)
[2022-01-09] MEDS: MESALAMINE 4 GM/60 ML ENEMA PR SCH (22:34)
[2022-01-10] MEDS: metroNIDAZOLE 500 MG/100 ML BAG IV SCH ×3 (06:01→22:05)
[2022-01-10] MEDS: CIPROFLOXACIN / D5W 400 MG/200 ML BAG IV SCH ×2 (06:29→17:58)
[2022-01-10 06:44] LABS: Hematocrit (blood only) 31.4 % (34.1-44.9); Hemoglobin 10.4 g/dl (12.0-16.0); Mean Corpuscular Hemoglobin 27.6 pg (25.0-34.0); Mean Corpuscular Hgb Conc 33.1 g/dL (32.0-36.0); Mean Corpuscular Volume 83.3 fL (80.0-100.0); Mean Platelet Volume 10.8 fL (9.4-12.3); Platelet Count 404 K/uL (130-400); RDW Coefficient of Variation 13.6 % (11.5-14.5); RDW Standard Deviation 41.1 fL (36.4-46.3); Red Blood Count 3.77 M/uL (3.93-5.22); White Blood Count 4.95 K/ul (4.8-10.8)
[2022-01-10 07:22] LABS: BUN Creatinine Ratio 7.3 (10-20); C Reactive Protein 11.03 mg/dl (0-0.5); Calcium 8.1 mg/dl (8.5-10.1); Creatinine Clr Calc Pharmacy 161.9 ml/min; Est GFR (African American) 143.6 ml/min; Est GFR (Non-African American) 123.9 ml/min; Potassium 3.5 mmol/L (3.5-5.1)
[2022-01-10 08:10] LABS: Basophils # (auto) 0.03 K/uL (0-0.2); Basophils % (auto) 0.6 %; Echinocytes 1+; Immature Granulocytes # (auto) 0.04 K/uL (0.00-0.02); Immature Granulocytes % (auto) 0.8 %; Lymphocytes # (auto) 1.52 K/uL (1.2-3.4); Lymphocytes % (auto) 30.7 %; Monocytes # (auto) 0.83 K/uL (0.24-0.82); Monocytes % (auto) 16.8 %; Neutrophils # (auto) 2.43 K/uL (1.4-6.5); Neutrophils % (auto) 49.1 %; Polychromasia 1+; Toxic Vacuolation 1+
[2022-01-10] MEDS: methylPREDNISolone 20 MG in SYRINGE 0 ML IV SCH ×3 (08:45→23:22)
[2022-01-10] MEDS: LIDOCAINE 5% OINT 30 GM TUBE EXT SCH ×2 (08:46→22:02)
[2022-01-10] MEDS: NITROGLYCERIN 2% 7.5 INCH, AQUAPHOR 67.5 GM, BARCODE IDENTIFIER 1 EACH EXT SCH ×2 (08:47→22:04)
[2022-01-10] MEDS: MESALAMINE 800 MG TABCR PO SCH ×3 (08:47→22:03)
[2022-01-10] MEDS: LACTATED RINGER'S 1,000 ML IV SCH ×2 (10:28→23:22)
--- NOTE | 2022-01-10 11:07 | Gastroenterology Progress Note ---
Date of Service January 10, 2022 Assessment & Plan (1) Ulcerative colitis: (2) Fever: Plan: Pt is a 46 yo female newly dx'd with L sided UC, hemorrhoids, returned to ED w c/o fever (38.3C). She was taking PO and DC Mesalamine as well as Budesonide after her DC a week ago. Continue to have rectal bleeding, left-sided abdominal pain overnight. Blood count dropped a gram. - Mesalamine 800mg TID - Rowasa 4g DC HS - Check stool cx, Cdiff -> negative - Methylprednisolone 20mg IV TID. Upon DC will need to stop Budesonide; start Prednisone taper: 40mg daily x 1 week, 30mg daily x 1 week, 20mg daily x 1 week, 15mg daily x 1 week, 10mg daily x1 wee, 5mg daily x 1 week. - Need to transition to biologic. Obtained Hepatitis serologies, TB Quant gold. She is also self paying, in process of applying for Medicare. Will ask case technician to meet with her and to discuss commercial insurance enrollment. Then will initiate prior auth for biologic (Infliximab vs Adalimumab). We had discussed in detail about biologic mechanism of action, dosage, route of admin istration, infection, malignancy risks. - Diet as tolerated - IVF support and symptomatic management otherwise. Admission and Anticipated Discharge Date Admission Date: January 09, 2022 Supervising Physician Co-Signing Physician Notes I performed a history and physical examination of the patient today, including specifically on physical exam - soft abdomen. I have discussed the patient's management with the advanced practitioner. Please refer to the nurse practitioner's note for the documented findings and plan of care. Left sided severe UC. Recommend: IV Steroids. Start the process to initiate biological therapy. Subjective Pt reports continued rectal bleeding through the night and L sided abd pain. No n/v. Feels weak. Review of Systems Review of Systems: All systems reviewed & are unremarkable except as noted in HPI & below Physical Exam Constitutional: WD/WN, vitals as above well groomed and cooperative Eyes: PERRL, conjunctivae normal, anicteric sclerae ENMT: external ear and nose normal, oropharynx normal Respiratory: normal respiratory effort, lungs clear to auscultation Cardiovascular: RRR, no murmur, no edema Gastrointestinal (Abdomen): TTP LLQ Skin: no rashes, warm and dry no jaundice Psychiatric: A+Ox3, euthymic affect Lymphatic: no lymphedema Results & Data ([facility]) Vital Signs (Past 12 Hours) Vital Signs Temp Pulse Resp BP Pulse Ox O2 Del Method 01/10/22 07:46 36.9 C 97 H 18 94/63 L 98 01/10/22 03:21 37.3 C 97 H 16 94/61 L 97 Room Air 01/09/22 23:15 37.4 C 106 H 16 88/61 L 98 Room Air
--- NOTE | 2022-01-10 12:51 | Hospitalist Progress Note ---
Date of Service January 10, 2022 Assessment & Plan (1) Ulcerative colitis: Plan: Patient was diagnosed last admission with ulcerative colitis. Colonoscopy with biopsy was done on 12/27. Comes in with increased frequency of diarrhea and fever. CT abdomen pelvis on admission shows colitis in the descending and sigmoid colon Infectious work-up including C. difficile and GI PCR panel is negative. Hemoglobin is 10.4; similar to her hemoglobin in 12/30. Plan; Continue on mesalamine 800 mg 3 times daily, Rowasa 4 g per rectal at night. -- Continue on methylprednisolone 20 mg 3 times daily. Plan to use steroid taper on discharge. -- Given patient's severity; will need transition to biological agents. Hepatitis serology and TB quant gold ordered. 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 -IV fluid restarted and full liquid initiated given patient's symptoms. (2) Hemorrhoids: Plan: Found to have thrombosed hemorrhoids on colonoscopy last admission. Reports pain currently. Plan; Lidocaine jelly and nitroglycerin topical Plan SCDs for DVT prophylaxis Full code DispoHome after resolution of medical issues. Admission and Anticipated Discharge Date Admission Date: January 09, 2022 Subjective Patient seen and examined at bedside. Patient continues to have bloody diarrhea; 3 episodes in last 24 hours. She also complains of left lower quadrant abdominal pain. Review of Systems Review of Systems: All systems reviewed & are unremarkable except as noted in Subjective Physical Exam Physical Exam: Constitutional: WD/WN, vitals as above, NAD, sitting up in bed, pleasant, conversing easily Respiratory: normal respiratory effort, lungs clear to auscultation, no wheeze, rales, rhonchi. Normal insp/exp effort, no accessory muscle use Cardiovascular: RRR, no murmur, no edema Vessels: no JVD or carotid bruit Chest: normal inspection of chest Abdomen: Tenderness present in left lower quadrant. Musculoskeletal: no cyanosis or clubbing, extremities motor strength 5/5 Skin: no rashes, warm and dry normal turgor Neurologic: PERRL, EOMI, accommodation nl, no face palsy, no dysarthria CN's II- XI intact bilaterally and moves all extremities Psychiatric: A+Ox3, euthymic affect Lymphatic: no cervical or axillary lymphadenopathy : deferred Results & Data Results & Data ([facility]) Vital Signs (Past 12 Hours) Vital Signs Temp Pulse Resp BP Pulse Ox O2 Del Method 01/10/22 11:21 36.9 C 100 H 18 101/69 98 01/10/22 07:46 36.9 C 97 H 18 94/63 L 98 01/10/22 03:21 37.3 C 97 H 16 94/61 L 97 Room Air Laboratory Results Laboratory Results WBC 4.95 K/ul (4.8-10.8) 01/10/22 05:58 RBC 3.77 M/uL (3.93-5.22) L 01/10/22 05:58 Hgb 10.4 g/dl (12.0-16.0) L 01/10/22 05:58 Hct 31.4 % (34.1-44.9) L 01/10/22 05:58 MCV 83.3 fL (80.0-100.0) 01/10/22 05:58 MCH 27.6 pg (25.0-34.0) 01/10/22 05:58 MCHC 33.1 g/dL (32.0-36.0) 01/10/22 05:58 RDW Std Deviation 41.1 fL (36.4-46.3) 01/10/22 05:58 RDW Coeff of Gregory 13.6 % (11.5-14.5) 01/10/22 05:58 Plt Count 404 K/uL (130-400) H 01/10/22 05:58 MPV 10.8 fL (9.4-12.3) 01/10/22 05:58 Immature Gran % (Auto) 0.8 % 01/10/22 05:58 Neut % (Auto) 49.1 % 01/10/22 05:58 Lymph % (Auto) 30.7 % 01/10/22 05:58 [place] % (Auto) 16.8 % 01/10/22 05:58 Eos % (Auto) 2.0 % 01/10/22 05:58 Baso % (Auto) 0.6 % 01/10/22 05:58 Neut # (Auto) 2.43 K/uL (1.4-6.5) 01/10/22 05:58 Lymph # (Auto) 1.52 K/uL (1.2-3.4) 01/10/22 05:58 [place] # (Auto) 0.83 K/uL (0.24-0.82) H 01/10/22 05:58 Eos # (Auto) 0.10 K/uL (0-0.50) 01/10/22 05:58 Baso # (Auto) 0.03 K/uL (0-0.2) 01/10/22 05:58 Immature Gran # (Auto) 0.04 K/uL (0.00-0.02) H 01/10/22 05:58 Toxic Vacuolation 1+ 01/10/22 05:58 Polychromasia 1+ 01/10/22 05:58 Echinocytes 1+ 01/10/22 05:58 ESR 25 mm/hr (0-20) H 01/10/22 05:58 Sodium 136 mmol/L (136-145) 01/10/22 05:58 Potassium 3.5 mmol/L (3.5-5.1) 01/10/22 05:58 Chloride 105 mmol/L (98-107) 01/10/22 05:58 Carbon Dioxide 25 mmol/L (21-32) 01/10/22 05:58 Anion Gap 6 (3-11) 01/10/22 05:58 BUN 3 mg/dl (6-23) L 01/10/22 05:58 Creatinine 0.41 mg/dl (0.6-1.2) L 01/10/22 05:58 Est Cr Clr Drug Dosing 161.9 ml/min 01/10/22 05:58 Est GFR ( Amer) 143.6 ml/min 01/10/22 05:58 Est GFR (Non-Af Amer) 123.9 ml/min 01/10/22 05:58 BUN/Creatinine Ratio 7.3 (10-20) L 01/10/22 05:58 Glucose 99 mg/dl (70-99(Fasting)) 01/10/22 05:58 Lactate 0.4 mmol/L (0.4-2.0) 01/09/22 06:30 Calcium 8.1 mg/dl (8.5-10.1) L 01/10/22 05:58 Magnesium 2.1 mg/dl (1.7-2.4) 01/09/22 00:43 Total Bilirubin 0.4 mg/dl (0.2-1.0) 01/09/22 00:43 AST 18 U/L (13-39) 01/09/22 00:43 ALT 37 U/L (7-52) 01/09/22 00:43 Alkaline Phosphatase 64 U/L (34-104) 01/09/22 00:43 C-Reactive Protein 11.03 mg/dl (0-0.5) H 01/10/22 05:58 Total Protein 6.8 gm/dl (6.0-8.3) 01/09/22 00:43 Albumin 3.3 gm/dl (3.4-5.0) L 01/09/22 00:43 Globulin 3.5 gm/dl (2.5-4.0) 01/09/22 00:43 Albumin/Globulin Ratio 0.9 (0.9-2) 01/09/22 00:43 Urine Color Yellow 01/09/22 Unknown Urine Appearance Clear (Clear) 01/09/22 Unknown Urine pH 5.5 (4.5-7.5) 01/09/22 Unknown Ur Specific [place] > 1.045 (1.000-1.030) H 01/09/22 Unknown Urine Protein Negative (Negative) 01/09/22 Unknown Urine Glucose (UA) Negative (Negative) 01/09/22 Unknown Urine Ketones 4+ (Negative) H 01/09/22 Unknown Urine Blood Negative (Negative) 01/09/22 Unknown Urine Nitrite Negative (Negative) 01/09/22 Unknown Urine Bilirubin Negative (Negative) 01/09/22 Unknown Urine Urobilinogen Negative (Negative) 01/09/22 Unknown Ur Leukocyte Esterase Negative (Negative) 01/09/22 Unknown Urine Test Negative (Negative) 01/09/22 Unknown Stl C. cayetanensis PCR Not Detected (NotDetected) 01/09/22 18:00 Stool Rotavirus A PCR Not Detected (NotDetected) 01/09/22 18:00 Stl Adenov F 40/41 PCR Not Detected (NotDetected) 01/09/22 18:00 Stool Astrovirus (PCR) Not Detected (NotDetected) 01/09/22 18:00 Stool Campylobacter PCR Not Detected (NotDetected) 01/09/22 18:00 Stl C. diff Tox B Gene Cancelled 01/09/22 18:00 Stl C. diff Tox A/B PCR Not Detected (NotDetected) 01/09/22 18:00 Stool Cryptosporidium PCR Not Detected (NotDetected) 01/09/22 18:00 Stl E.coli Shiga Tox PCR Not Detected (NotDetected) 01/09/22 18:00 Stl Enterotoxigenic E PCR Not Detected (NotDetected) 01/09/22 18:00 Stool EPEC (PCR) Not Detected (NotDetected) 01/09/22 18:00 Stool EAEC (PCR) Not Detected (NotDetected) 01/09/22 18:00 Stl E. histolytica PCR Not Detected (NotDetected) 01/09/22 18:00 Stool Giardia Lamblia PCR Not Detected (NotDetected) 01/09/22 18:00 Stool Salmonella PCR Not Detected (NotDetected) 01/09/22 18:00 Stool Sapovirus (PCR) Not Detected (NotDetected) 01/09/22 18:00 Stl P. shigelloides PCR Not Detected (NotDetected) 01/09/22 18:00 Stl Shigella/EIEC PCR Not Detected (NotDetected) 01/09/22 18:00 St Y.enterocolitica PCR Not Detected (NotDetected) 01/09/22 18:00 Stool Vibrio (PCR) Not Detected (NotDetected) 01/09/22 18:00 Stl Vibrio cholerae PCR Not Detected (NotDetected) 01/09/22 18:00 Stl Norovirus GI/GII PCR Not Detected (NotDetected) 01/09/22 18:00 SARS-CoV-2 (PCR) NEGATIVE (Negative) 01/09/22 Unknown Influenza Type A (PCR) Negative (Neg) 01/09/22 Unknown Influenza Type B (PCR) Negative (Neg) 01/09/22 Unknown RSV (RT-PCR) Negative (Neg) 01/09/22 Unknown Impressions Chest X-Ray 01/08/22 23:55 XR chest 1V portable HISTORY: Fever COMPARISON: None. FINDINGS: The lungs are clear. Cardiac silhouette is normal in size. No pleural effusions. No pneumothorax. IMPRESSION: No acute process. ACT 112: Negative or not required by law. Electronically signed by: Rafael Teague M.D. 01/09/2022 8:43 AM Abdomen/Pelvis CT 01/09/22 02:59 CT abd pelvis IV con only CLINICAL HISTORY: ulcerative colitis, fever TECHNIQUE: Helical axial images of the abdomen and pelvis were obtained and displayed. Automated dose lowering techniques and/or adjustment according to patient size were utilized for this exam. This exam was performed with intravenous contrast. CT DOSE: 405.70 mGy.cm COMPARISON: Comparison is made to CT abdomen pelvis 12/27/2021 FINDINGS: Lower chest: No acute abnormality Liver: Unremarkable. No focal lesions are seen. Gallbladder and biliary tree: No calcified gallstones. Normal caliber wall. No intra- or extrahepatic biliary ductal dilation. Pancreas: Unremarkable, no focal lesions. Spleen: Unremarkable. Adrenals: Unremarkable. Kidneys and ureters: Unremarkable. Bladder: Unremarkable. Reproductive organs: Wall thickening and edema with surrounding fat stranding is seen involving the distal transverse colon, descending, and sigmoid colon. The appendix is normal. Bowel: Unremarkable. Lymph nodes Retroperitoneal: Subcentimeter lymph nodes are noted. Pelvic: Unremarkable. Mesenteric: Subcentimeter lymph nodes are noted. Peritoneum: Mild fat stranding is again noted in the left hemicolon. Vessels: Unremarkable. Abdominal wall: Unremarkable. Bones: Unremarkable. IMPRESSION: Redemonstration of colitis in the descending and sigmoid colon in this patient with history of ulcerative colitis. No fluid collection or pneumoperitoneum. ACT 112: Negative or not required by law. Electronically signed by: Eder Marinelli M.D. 01/09/2022 10:03 AM
[2022-01-10] MEDS: MESALAMINE 4 GM/60 ML ENEMA PR SCH (22:04)
[2022-01-11] MEDS: metroNIDAZOLE 500 MG/100 ML BAG IV SCH ×3 (06:03→22:36)
[2022-01-11] MEDS: CIPROFLOXACIN / D5W 400 MG/200 ML BAG IV SCH ×2 (07:03→17:20)
[2022-01-11] MEDS: methylPREDNISolone 20 MG in SYRINGE 0 ML IV SCH (08:50)
[2022-01-11] MEDS: MESALAMINE 800 MG TABCR PO SCH ×4 (08:51→22:34)
[2022-01-11] MEDS: LIDOCAINE 5% OINT 30 GM TUBE EXT SCH ×2 (08:55→22:50)
[2022-01-11] MEDS: NITROGLYCERIN 2% 7.5 INCH, AQUAPHOR 67.5 GM, BARCODE IDENTIFIER 1 EACH EXT SCH ×2 (08:59→22:34)
[2022-01-11] MEDS: LACTATED RINGER'S 1,000 ML IV SCH (11:53)
--- NOTE | 2022-01-11 12:02 | Hospitalist Progress Note ---
Date of Service January 11, 2022 Assessment & Plan (1) Ulcerative colitis: Plan: Patient was diagnosed last admission with ulcerative colitis. Colonoscopy with biopsy was done on 12/27. Comes in with increased frequency of diarrhea and fever. CT abdomen pelvis on admission shows colitis in the descending and sigmoid colon Infectious work-up including C. difficile and GI PCR panel is negative. Hemoglobin is 10.4; similar to her hemoglobin in 12/30. Plan; Continue on mesalamine 800 mg 3 times daily, Rowasa 4 g per rectal at night. -- Patient continues to have episodes of diarrhea; will increase her methylprednisolone to 40 mg IV 3 times daily. Will monitor her episodes of diarrhea and monitor her progress. If she does well; plan to start prednisone on discharge with taper every week. --Given patient's severity; will need transition to biological agents. Hepatitis serology and TB quant gold ordered. 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 -Continue on IV fluids and advance diet as tolerated. (2) Hemorrhoids: Plan: Found to have thrombosed hemorrhoids on colonoscopy last admission. Reports pain currently. Plan; Lidocaine jelly and nitroglycerin topical Plan SCDs for DVT prophylaxis Full code DispoHome after resolution of medical issues. Admission and Anticipated Discharge Date Admission Date: January 09, 2022 Subjective Patient seen and examined at bedside. [employer] used to communicate with patient. Patient continues to have bloody bowel movements. She has 3 episodes so far in last 24 hours. She continues to complain of pain in her left lower abdomen. She is anxious regarding her symptoms as she feels that she has not made any progress since the admission. Review of Systems Review of Systems: All systems reviewed & are unremarkable except as noted in Subjective Physical Exam Physical Exam: Constitutional: WD/WN, vitals as above, NAD, sitting up in bed, pleasant, conversing easily Respiratory: normal respiratory effort, lungs clear to auscultation, no wheeze, rales, rhonchi. Normal insp/exp effort, no accessory muscle use Cardiovascular: RRR, no murmur, no edema Vessels: no JVD or carotid bruit Chest: normal inspection of chest Abdomen: Tenderness present in left lower quadrant. Bowel sounds present Musculoskeletal: no cyanosis or clubbing, extremities motor strength 5/5 Skin: no rashes, warm and dry normal turgor Neurologic: PERRL, EOMI, accommodation nl, no face palsy, no dysarthria CN's II- XI intact bilaterally and moves all extremities Psychiatric: A+Ox3, euthymic affect Lymphatic: no cervical or axillary lymphadenopathy : deferred Results & Data Results & Data ([facility]) Vital Signs (Past 12 Hours) Vital Signs Temp Pulse Pulse Resp BP Pulse Ox O2 Del Method 01/11/22 11:38 36.8 C 86 87 14 102/72 96 Room Air 01/11/22 07:55 37.1 C 93 H 16 100/67 95 Room Air 01/11/22 04:01 36.9 C 99 H 16 105/70 96 Room Air Laboratory Results Laboratory Results WBC 4.95 K/ul (4.8-10.8) 01/10/22 05:58 RBC 3.77 M/uL (3.93-5.22) L 01/10/22 05:58 Hgb 10.4 g/dl (12.0-16.0) L 01/10/22 05:58 Hct 31.4 % (34.1-44.9) L 01/10/22 05:58 MCV 83.3 fL (80.0-100.0) 01/10/22 05:58 MCH 27.6 pg (25.0-34.0) 01/10/22 05:58 MCHC 33.1 g/dL (32.0-36.0) 01/10/22 05:58 RDW Std Deviation 41.1 fL (36.4-46.3) 01/10/22 05:58 RDW Coeff of Gregory 13.6 % (11.5-14.5) 01/10/22 05:58 Plt Count 404 K/uL (130-400) H 01/10/22 05:58 MPV 10.8 fL (9.4-12.3) 01/10/22 05:58 Immature Gran % (Auto) 0.8 % 01/10/22 05:58 Neut % (Auto) 49.1 % 01/10/22 05:58 Lymph % (Auto) 30.7 % 01/10/22 05:58 [place] % (Auto) 16.8 % 01/10/22 05:58 Eos % (Auto) 2.0 % 01/10/22 05:58 Baso % (Auto) 0.6 % 01/10/22 05:58 Neut # (Auto) 2.43 K/uL (1.4-6.5) 01/10/22 05:58 Lymph # (Auto) 1.52 K/uL (1.2-3.4) 01/10/22 05:58 [place] # (Auto) 0.83 K/uL (0.24-0.82) H 01/10/22 05:58 Eos # (Auto) 0.10 K/uL (0-0.50) 01/10/22 05:58 Baso # (Auto) 0.03 K/uL (0-0.2) 01/10/22 05:58 Immature Gran # (Auto) 0.04 K/uL (0.00-0.02) H 01/10/22 05:58 Toxic Vacuolation 1+ 01/10/22 05:58 Polychromasia 1+ 01/10/22 05:58 Echinocytes 1+ 01/10/22 05:58 ESR 25 mm/hr (0-20) H 01/10/22 05:58 Sodium 136 mmol/L (136-145) 01/10/22 05:58 Potassium 3.5 mmol/L (3.5-5.1) 01/10/22 05:58 Chloride 105 mmol/L (98-107) 01/10/22 05:58 Carbon Dioxide 25 mmol/L (21-32) 01/10/22 05:58 Anion Gap 6 (3-11) 01/10/22 05:58 BUN 3 mg/dl (6-23) L 01/10/22 05:58 Creatinine 0.41 mg/dl (0.6-1.2) L 01/10/22 05:58 Est Cr Clr Drug Dosing 161.9 ml/min 01/10/22 05:58 Est GFR ( Amer) 143.6 ml/min 01/10/22 05:58 Est GFR (Non-Af Amer) 123.9 ml/min 01/10/22 05:58 BUN/Creatinine Ratio 7.3 (10-20) L 01/10/22 05:58 Glucose 99 mg/dl (70-99(Fasting)) 01/10/22 05:58 Lactate 0.4 mmol/L (0.4-2.0) 01/09/22 06:30 Calcium 8.1 mg/dl (8.5-10.1) L 01/10/22 05:58 Magnesium 2.1 mg/dl (1.7-2.4) 01/09/22 00:43 Total Bilirubin 0.4 mg/dl (0.2-1.0) 01/09/22 00:43 AST 18 U/L (13-39) 01/09/22 00:43 ALT 37 U/L (7-52) 01/09/22 00:43 Alkaline Phosphatase 64 U/L (34-104) 01/09/22 00:43 C-Reactive Protein 11.03 mg/dl (0-0.5) H 01/10/22 05:58 Total Protein 6.8 gm/dl (6.0-8.3) 01/09/22 00:43 Albumin 3.3 gm/dl (3.4-5.0) L 01/09/22 00:43 Globulin 3.5 gm/dl (2.5-4.0) 01/09/22 00:43 Albumin/Globulin Ratio 0.9 (0.9-2) 01/09/22 00:43 Urine Color Yellow 01/09/22 Unknown Urine Appearance Clear (Clear) 01/09/22 Unknown Urine pH 5.5 (4.5-7.5) 01/09/22 Unknown Ur Specific [place] > 1.045 (1.000-1.030) H 01/09/22 Unknown Urine Protein Negative (Negative) 01/09/22 Unknown Urine Glucose (UA) Negative (Negative) 01/09/22 Unknown Urine Ketones 4+ (Negative) H 01/09/22 Unknown Urine Blood Negative (Negative) 01/09/22 Unknown Urine Nitrite Negative (Negative) 01/09/22 Unknown Urine Bilirubin Negative (Negative) 01/09/22 Unknown Urine Urobilinogen Negative (Negative) 01/09/22 Unknown Ur Leukocyte Esterase Negative (Negative) 01/09/22 Unknown Urine Test Negative (Negative) 01/09/22 Unknown Stl C. cayetanensis PCR Not Detected (NotDetected) 01/09/22 18:00 Stool Rotavirus A PCR Not Detected (NotDetected) 01/09/22 18:00 Stl Adenov F 40/41 PCR Not Detected (NotDetected) 01/09/22 18:00 Stool Astrovirus (PCR) Not Detected (NotDetected) 01/09/22 18:00 Stool Campylobacter PCR Not Detected (NotDetected) 01/09/22 18:00 Stl C. diff Tox B Gene Cancelled 01/09/22 18:00 Stl C. diff Tox A/B PCR Not Detected (NotDetected) 01/09/22 18:00 Stool Cryptosporidium PCR Not Detected (NotDetected) 01/09/22 18:00 Stl E.coli Shiga Tox PCR Not Detected (NotDetected) 01/09/22 18:00 Stl Enterotoxigenic E PCR Not Detected (NotDetected) 01/09/22 18:00 Stool EPEC (PCR) Not Detected (NotDetected) 01/09/22 18:00 Stool EAEC (PCR) Not Detected (NotDetected) 01/09/22 18:00 Stl E. histolytica PCR Not Detected (NotDetected) 01/09/22 18:00 Stool Giardia Lamblia PCR Not Detected (NotDetected) 01/09/22 18:00 Stool Salmonella PCR Not Detected (NotDetected) 01/09/22 18:00 Stool Sapovirus (PCR) Not Detected (NotDetected) 01/09/22 18:00 Stl P. shigelloides PCR Not Detected (NotDetected) 01/09/22 18:00 Stl Shigella/EIEC PCR Not Detected (NotDetected) 01/09/22 18:00 St Y.enterocolitica PCR Not Detected (NotDetected) 01/09/22 18:00 Stool Vibrio (PCR) Not Detected (NotDetected) 01/09/22 18:00 Stl Vibrio cholerae PCR Not Detected (NotDetected) 01/09/22 18:00 Stl Norovirus GI/GII PCR Not Detected (NotDetected) 01/09/22 18:00 SARS-CoV-2 (PCR) NEGATIVE (Negative) 01/09/22 Unknown Influenza Type A (PCR) Negative (Neg) 01/09/22 Unknown Influenza Type B (PCR) Negative (Neg) 01/09/22 Unknown RSV (RT-PCR) Negative (Neg) 01/09/22 Unknown Impressions Chest X-Ray 01/08/22 23:55 XR chest 1V portable HISTORY: Fever COMPARISON: None. FINDINGS: The lungs are clear. Cardiac silhouette is normal in size. No pleural effusions. No pneumothorax. IMPRESSION: No acute process. ACT 112: Negative or not required by law. Electronically signed by: Rafael Teague M.D. 01/09/2022 8:43 AM Abdomen/Pelvis CT 01/09/22 02:59 CT abd pelvis IV con only CLINICAL HISTORY: ulcerative colitis, fever TECHNIQUE: Helical axial images of the abdomen and pelvis were obtained and displayed. Automated dose lowering techniques and/or adjustment according to pat ient size were utilized for this exam. This exam was performed with intravenous contrast. CT DOSE: 405.70 mGy.cm COMPARISON: Comparison is made to CT abdomen pelvis 12/27/2021 FINDINGS: Lower chest: No acute abnormality Liver: Unremarkable. No focal lesions are seen. Gallbladder and biliary tree: No calcified gallstones. Normal caliber wall. No intra- or extrahepatic biliary ductal dilation. Pancreas: Unremarkable, no focal lesions. Spleen: Unremarkable. Adrenals: Unremarkable. Kidneys and ureters: Unremarkable. Bladder: Unremarkable. Reproductive organs: Wall thickening and edema with surrounding fat stranding is seen involving the distal transverse colon, descending, and sigmoid colon. The appendix is normal. Bowel: Unremarkable. Lymph nodes Retroperitoneal: Subcentimeter lymph nodes are noted. Pelvic: Unremarkable. Mesenteric: Subcentimeter lymph nodes are noted. Peritoneum: Mild fat stranding is again noted in the left hemicolon. Vessels: Unremarkable. Abdominal wall: Unremarkable. Bones: Unremarkable. IMPRESSION: Redemonstration of colitis in the descending and sigmoid colon in this patient with history of ulcerative colitis. No fluid collection or pneumoperitoneum. ACT 112: Negative or not required by law. Electronically signed by: Eder Marinelli M.D. 01/09/2022 10:03 AM
[2022-01-11 12:30] LABS: Hematocrit (blood only) 31.9 % (34.1-44.9); Hemoglobin 10.6 g/dl (12.0-16.0); Mean Corpuscular Hemoglobin 27.5 pg (25.0-34.0); Mean Corpuscular Hgb Conc 33.2 g/dL (32.0-36.0); Mean Corpuscular Volume 82.9 fL (80.0-100.0); Mean Platelet Volume 9.8 fL (9.4-12.3); Platelet Count 561 K/uL (130-400); RDW Coefficient of Variation 13.7 % (11.5-14.5); RDW Standard Deviation 40.8 fL (36.4-46.3); Red Blood Count 3.85 M/uL (3.93-5.22); White Blood Count 3.44 K/ul (4.8-10.8)
[2022-01-11 12:47] LABS: Basophils # (auto) 0.03 K/uL (0-0.2); Basophils % (auto) 0.9 %; Eosinophils # (auto) 0.01 K/uL (0-0.50); Eosinophils % (auto) 0.3 %; Immature Granulocytes # (auto) 0.05 K/uL (0.00-0.02); Immature Granulocytes % (auto) 1.5 %; Lymphocytes # (auto) 1.14 K/uL (1.2-3.4); Lymphocytes % (auto) 33.1 %; Monocytes # (auto) 0.32 K/uL (0.24-0.82); Monocytes % (auto) 9.3 %; Neutrophils # (auto) 1.89 K/uL (1.4-6.5); Neutrophils % (auto) 54.9 %
[2022-01-11 12:48] LABS: BUN Creatinine Ratio 6.7 (10-20); Calcium 8.5 mg/dl (8.5-10.1); Creatinine Clr Calc Pharmacy 148.7 ml/min; Est GFR (African American) 139.3 ml/min; Est GFR (Non-African American) 120.2 ml/min; Potassium 3.7 mmol/L (3.5-5.1)
[2022-01-11 14:03] LABS: HBSAG NON-REACTIVE (NON-REACTIVE); Hepatitis A Antibody IgM NON-REACTIVE (NON-REACTIVE); Hepatitis B Core Antibody IgM NON-REACTIVE (NON-REACTIVE)
[2022-01-11] MEDS: methylPREDNISolone 40 MG in SYRINGE 0 ML IV SCH ×2 (14:13→22:35)
[2022-01-11] MEDS ORDERED: Nursing to Pharmacy Communication SCH (15:15)
[2022-01-11] MEDS: MESALAMINE 4 GM/60 ML ENEMA PR SCH (22:52)
[2022-01-12 05:50] LABS: Hematocrit (blood only) 30.4 % (34.1-44.9); Mean Corpuscular Hemoglobin 27.5 pg (25.0-34.0); Mean Corpuscular Hgb Conc 32.9 g/dL (32.0-36.0); Mean Corpuscular Volume 83.5 fL (80.0-100.0); Mean Platelet Volume 9.9 fL (9.4-12.3); Platelet Count 550 K/uL (130-400); RDW Coefficient of Variation 13.6 % (11.5-14.5); RDW Standard Deviation 41.8 fL (36.4-46.3); Red Blood Count 3.64 M/uL (3.93-5.22); White Blood Count 4.03 K/ul (4.8-10.8)
[2022-01-12] MEDS: methylPREDNISolone 40 MG in SYRINGE 0 ML IV SCH ×4 (06:07→21:31)
[2022-01-12 06:08] LABS: BUN Creatinine Ratio 12.5 (10-20); Calcium 8.2 mg/dl (8.5-10.1); Creatinine Clr Calc Pharmacy 139.4 ml/min; Est GFR (African American) 136.3 ml/min; Est GFR (Non-African American) 117.6 ml/min; Potassium 3.5 mmol/L (3.5-5.1)
[2022-01-12] MEDS: metroNIDAZOLE 500 MG/100 ML BAG IV SCH ×4 (06:10→21:46)
[2022-01-12 06:28] LABS: Basophils # (auto) 0.02 K/uL (0-0.2); Basophils % (auto) 0.5 %; Immature Granulocytes # (auto) 0.08 K/uL (0.00-0.02); Lymphocytes % (auto) 24.8 %; Monocytes # (auto) 0.56 K/uL (0.24-0.82); Monocytes % (auto) 13.9 %; Neutrophils # (auto) 2.37 K/uL (1.4-6.5); Neutrophils % (auto) 58.8 %
[2022-01-12] MEDS: CIPROFLOXACIN / D5W 400 MG/200 ML BAG IV SCH ×2 (07:24→17:51)
[2022-01-12] MEDS: MESALAMINE 800 MG TABCR PO SCH ×3 (07:28→21:31)
[2022-01-12] MEDS: NITROGLYCERIN 2% 7.5 INCH, AQUAPHOR 67.5 GM, BARCODE IDENTIFIER 1 EACH EXT SCH ×2 (07:28→21:31)
[2022-01-12] MEDS: LIDOCAINE 5% OINT 30 GM TUBE EXT SCH ×2 (07:28→21:30)
--- NOTE | 2022-01-12 10:53 | Hospitalist Progress Note ---
Date of Service January 12, 2022 Assessment & Plan (1) Ulcerative colitis: Plan: Patient was diagnosed last admission with ulcerative colitis. Colonoscopy with biopsy was done on 12/27. Comes in with increased frequency of diarrhea and fever. CT abdomen pelvis on admission shows colitis in the descending and sigmoid colon Infectious work-up including C. difficile and GI PCR panel is negative. Hemoglobin is 10.0; similar to her hemoglobin in 12/30. Plan; Continue on mesalamine 800 mg 3 times daily, Rowasa 4 g per rectal at night. -- Continue on methylprednisolone to 40 mg IV 3 times daily. Dose was increased from 20 mg IV 3 times daily to 40 mg IV 3 times daily on 01/11. Will monitor her episodes of diarrhea and monitor her progress. If she does well; plan to start prednisone on discharge with taper every week. --Given patient's severity; will need transition to biological agents. Hepatitis serology and TB quant gold ordered. Patient does not have insurance presently;case technician on board. Continue on ciprofloxacin and metronidazole for total of 7 days. (2) Hemorrhoids: Plan: Found to have thrombosed hemorrhoids on colonoscopy last admission. Reports pain currently. Plan; Lidocaine jelly and nitroglycerin topical Plan SCDs for DVT prophylaxis Full code DispoHome after resolution of medical issues. Admission and Anticipated Discharge Date Admission Date: January 09, 2022 Subjective Patient seen and examined at bedside. She is lying in the bed comfortably; not in any distress. Patient had 2 episodes of bloody bowel movement in last 24 hours; decreased from 3 times in previous 2 days. She reports her abdominal pain is slightly better as well. Review of Systems Review of Systems: All systems reviewed & are unremarkable except as noted in Subjective Physical Exam Physical Exam: Constitutional: WD/WN, vitals as above, NAD, sitting up in bed, pleasant, conversing easily Respiratory: normal respiratory effort, lungs clear to auscultation, no wheeze, rales, rhonchi. Normal insp/exp effort, no accessory muscle use Cardiovascular: RRR, no murmur, no edema Vessels: no JVD or carotid bruit Chest: normal inspection of chest Abdomen: Tenderness present in left lower quadrant. Bowel sounds present Musculoskeletal: no cyanosis or clubbing, extremities motor strength 5/5 Skin: no rashes, warm and dry normal turgor Neurologic: PERRL, EOMI, accommodation nl, no face palsy, no dysarthria CN's II- XI intact bilaterally and moves all extremities Psychiatric: A+Ox3, euthymic affect Lymphatic: no cervical or axillary lymphadenopathy : deferred Results & Data Results & Data ([facility]) Vital Signs (Past 12 Hours) Vital Signs Temp Pulse Resp BP Pulse Ox O2 Del Method 01/12/22 07:28 36.8 C 83 16 93/64 L 97 Room Air 01/11/22 23:03 36.7 C 90 16 115/74 97 Room Air Laboratory Results Laboratory Results WBC 4.03 K/ul (4.8-10.8) L 01/12/22 05:32 RBC 3.64 M/uL (3.93-5.22) L 01/12/22 05:32 Hgb 10.0 g/dl (12.0-16.0) L 01/12/22 05:32 Hct 30.4 % (34.1-44.9) L 01/12/22 05:32 MCV 83.5 fL (80.0-100.0) 01/12/22 05:32 MCH 27.5 pg (25.0-34.0) 01/12/22 05:32 MCHC 32.9 g/dL (32.0-36.0) 01/12/22 05:32 RDW Std Deviation 41.8 fL (36.4-46.3) 01/12/22 05:32 RDW Coeff of Gregory 13.6 % (11.5-14.5) 01/12/22 05:32 Plt Count 550 K/uL (130-400) H 01/12/22 05:32 MPV 9.9 fL (9.4-12.3) 01/12/22 05:32 Immature Gran % (Auto) 2.0 % 01/12/22 05:32 Neut % (Auto) 58.8 % 01/12/22 05:32 Lymph % (Auto) 24.8 % 01/12/22 05:32 [place] % (Auto) 13.9 % 01/12/22 05:32 Eos % (Auto) 0.0 % 01/12/22 05:32 Baso % (Auto) 0.5 % 01/12/22 05:32 Neut # (Auto) 2.37 K/uL (1.4-6.5) 01/12/22 05:32 Lymph # (Auto) 1.00 K/uL (1.2-3.4) L 01/12/22 05:32 [place] # (Auto) 0.56 K/uL (0.24-0.82) 01/12/22 05:32 Eos # (Auto) 0.00 K/uL (0-0.50) 01/12/22 05:32 Baso # (Auto) 0.02 K/uL (0-0.2) 01/12/22 05:32 Immature Gran # (Auto) 0.08 K/uL (0.00-0.02) H 01/12/22 05:32 Toxic Vacuolation 1+ 01/10/22 05:58 Polychromasia 1+ 01/10/22 05:58 Echinocytes 1+ 01/10/22 05:58 ESR 25 mm/hr (0-20) H 01/10/22 05:58 Sodium 138 mmol/L (136-145) 01/12/22 05:32 Potassium 3.5 mmol/L (3.5-5.1) 01/12/22 05:32 Chloride 104 mmol/L (98-107) 01/12/22 05:32 Carbon Dioxide 28 mmol/L (21-32) 01/12/22 05:32 Anion Gap 6 (3-11) 01/12/22 05:32 BUN 6 mg/dl (6-23) 01/12/22 05:32 Creatinine 0.48 mg/dl (0.6-1.2) L 01/12/22 05:32 Est Cr Clr Drug Dosing 139.4 ml/min 01/12/22 05:32 Est GFR ( Amer) 136.3 ml/min 01/12/22 05:32 Est GFR (Non-Af Amer) 117.6 ml/min 01/12/22 05:32 BUN/Creatinine Ratio 12.5 (10-20) 01/12/22 05:32 Glucose 193 mg/dl (70-99(Fasting)) H 01/12/22 05:32 Lactate 0.4 mmol/L (0.4-2.0) 01/09/22 06:30 Calcium 8.2 mg/dl (8.5-10.1) L 01/12/22 05:32 Magnesium 2.1 mg/dl (1.7-2.4) 01/09/22 00:43 Total Bilirubin 0.4 mg/dl (0.2-1.0) 01/09/22 00:43 AST 18 U/L (13-39) 01/09/22 00:43 ALT 37 U/L (7-52) 01/09/22 00:43 Alkaline Phosphatase 64 U/L (34-104) 01/09/22 00:43 C-Reactive Protein 11.03 mg/dl (0-0.5) H 01/10/22 05:58 Total Protein 6.8 gm/dl (6.0-8.3) 01/09/22 00:43 Albumin 3.3 gm/dl (3.4-5.0) L 01/09/22 00:43 Globulin 3.5 gm/dl (2.5-4.0) 01/09/22 00:43 Albumin/Globulin Ratio 0.9 (0.9-2) 01/09/22 00:43 Urine Color Yellow 01/09/22 Unknown Urine Appearance Clear (Clear) 01/09/22 Unknown Urine pH 5.5 (4.5-7.5) 01/09/22 Unknown Ur Specific [place] > 1.045 (1.000-1.030) H 01/09/22 Unknown Urine Protein Negative (Negative) 01/09/22 Unknown Urine Glucose (UA) Negative (Negative) 01/09/22 Unknown Urine Ketones 4+ (Negative) H 01/09/22 Unknown Urine Blood Negative (Negative) 01/09/22 Unknown Urine Nitrite Negative (Negative) 01/09/22 Unknown Urine Bilirubin Negative (Negative) 01/09/22 Unknown Urine Urobilinogen Negative (Negative) 01/09/22 Unknown Ur Leukocyte Esterase Negative (Negative) 01/09/22 Unknown Urine Test Negative (Negative) 01/09/22 Unknown Stl C. cayetanensis PCR Not Detected (NotDetected) 01/09/22 18:00 Stool Rotavirus A PCR Not Detected (NotDetected) 01/09/22 18:00 Stl Adenov F 40/41 PCR Not Detected (NotDetected) 01/09/22 18:00 Stool Astrovirus (PCR) Not Detected (NotDetected) 01/09/22 18:00 Stool Campylobacter PCR Not Detected (NotDetected) 01/09/22 18:00 Stl C. diff Tox B Gene Cancelled 01/09/22 18:00 Stl C. diff Tox A/B PCR Not Detected (NotDetected) 01/09/22 18:00 Stool Cryptosporidium PCR Not Detected (NotDetected) 01/09/22 18:00 Stl E.coli Shiga Tox PCR Not Detected (NotDetected) 01/09/22 18:00 Stl Enterotoxigenic E PCR Not Detected (NotDetected) 01/09/22 18:00 Stool EPEC (PCR) Not Detected (NotDetected) 01/09/22 18:00 Stool EAEC (PCR) Not Detected (NotDetected) 01/09/22 18:00 Stl E. histolytica PCR Not Detected (NotDetected) 01/09/22 18:00 Stool Giardia Lamblia PCR Not Detected (NotDetected) 01/09/22 18:00 Stool Salmonella PCR Not Detected (NotDetected) 01/09/22 18:00 Stool Sapovirus (PCR) Not Detected (NotDetected) 01/09/22 18:00 Stl P. shigelloides PCR Not Detected (NotDetected) 01/09/22 18:00 Stl Shigella/EIEC PCR Not Detected (NotDetected) 01/09/22 18:00 St Y.enterocolitica PCR Not Detected (NotDetected) 01/09/22 18:00 Stool Vibrio (PCR) Not Detected (NotDetected) 01/09/22 18:00 Stl Vibrio cholerae PCR Not Detected (NotDetected) 01/09/22 18:00 Stl Norovirus GI/GII PCR Not Detected (NotDetected) 01/09/22 18:00 SARS-CoV-2 (PCR) NEGATIVE (Negative) 01/09/22 Unknown Hepatitis A IgM Ab NON-REACTIVE (NON-REACTIVE) 01/10/22 10:13 Hep Bs Antigen NON-REACTIVE (NON-REACTIVE) 01/10/22 10:13 Hep Bs Ag Confirmation TNP 01/10/22 10:13 Hep B Core IgM Ab NON-REACTIVE (NON-REACTIVE) 01/10/22 10:13 Hepatitis C Ab (EIA) NON-REACTIVE (NON-REACTIVE) 01/10/22 10:13 Hep C Ab Signal/Cutoff 0.03 (<1.00) 01/10/22 10:13 Influenza Type A (PCR) Negative (Neg) 01/09/22 Unknown Influenza Type B (PCR) Negative (Neg) 01/09/22 Unknown RSV (RT-PCR) Negative (Neg) 01/09/22 Unknown Impressions Chest X-Ray 01/08/22 23:55 XR chest 1V portable HISTORY: Fever COMPARISON: None. FINDINGS: The lungs are clear. Cardiac silhouette is normal in size. No pleural effusions. No pneumothorax. IMPRESSION: No acute process. ACT 112: Negative or not required by law. Electronically signed by: Rafael Teague M.D. 01/09/2022 8:43 AM Abdomen/Pelvis CT 01/09/22 02:59 CT abd pelvis IV con only CLINICAL HISTORY: ulcerative colitis, fever TECHNIQUE: Helical axial images of the abdomen and pelvis were obtained and displayed. Automated dose lowering techniques and/or adjustment according to patient size were utilized for this exam. This exam was performed with intravenous contrast. CT DOSE: 405.70 mGy.cm COMPARISON: Comparison is made to CT abdomen pelvis 12/27/2021 FINDINGS: Lower chest: No acute abnormality Liver: Unremarkable. No focal lesions are seen. Gallbladder and biliary tree: No calcified gallstones. Normal caliber wall. No intra- or extrahepatic biliary ductal dilation. Pancreas: Unremarkable, no focal lesions. Spleen: Unremarkable. Adrenals: Unremarkable. Kidneys and ureters: Unremarkable. Bladder: Unremarkable. Reproductive organs: Wall thickening and edema with surrounding fat stranding is seen involving the distal transverse colon, descending, and sigmoid colon. The appendix is normal. Bowel: Unremarkable. Lymph nodes Retroperitoneal: Subcentimeter lymph nodes are noted. Pelvic: Unremarkable. Mesenteric: Subcentimeter lymph nodes are noted. Peritoneum: Mild fat stranding is again noted in the left hemicolon. Vessels: Unremarkable. Abdominal wall: Unremarkable. Bones: Unremarkable. IMPRESSION: Redemonstration of colitis in the descending and sigmoid colon in this patient with history of ulcerative colitis. No fluid collection or pneumoperitoneum. ACT 112: Negative or not required by law. Electronically signed by: Eder Marinelli M.D. 01/09/2022 10:03 AM
[2022-01-12 15:57] LABS: Quantiferon Mitogen-NIL 8.87 IU/mL; Quantiferon NIL 0.04 IU/mL; Quantiferon TB Gold Plus NEGATIVE (NEGATIVE)
[2022-01-12] MEDS: MESALAMINE 4 GM/60 ML ENEMA PR SCH (21:31)
[2022-01-13] MEDS: methylPREDNISolone 40 MG in SYRINGE 0 ML IV SCH (05:05)
[2022-01-13] MEDS: metroNIDAZOLE 500 MG/100 ML BAG IV SCH ×2 (05:05→12:59)
[2022-01-13] MEDS: CIPROFLOXACIN / D5W 400 MG/200 ML BAG IV SCH (06:04)
[2022-01-13 07:08] LABS: Hematocrit (blood only) 31.1 % (34.1-44.9); Mean Corpuscular Hemoglobin 27.5 pg (25.0-34.0); Mean Corpuscular Hgb Conc 32.2 g/dL (32.0-36.0); Mean Corpuscular Volume 85.4 fL (80.0-100.0); Mean Platelet Volume 10.3 fL (9.4-12.3); Platelet Count 591 K/uL (130-400); RDW Coefficient of Variation 13.6 % (11.5-14.5); RDW Standard Deviation 42.5 fL (36.4-46.3); Red Blood Count 3.64 M/uL (3.93-5.22); White Blood Count 3.94 K/ul (4.8-10.8)
[2022-01-13 07:42] LABS: BUN Creatinine Ratio 21.3 (10-20); Calcium 8.4 mg/dl (8.5-10.1); Creatinine Clr Calc Pharmacy 142.4 ml/min; Est GFR (African American) 137.3 ml/min; Est GFR (Non-African American) 118.5 ml/min; Potassium 4.6 mmol/L (3.5-5.1)
[2022-01-13] MEDS: MESALAMINE 800 MG TABCR PO SCH ×3 (08:13→22:10)
[2022-01-13] MEDS: NITROGLYCERIN 2% 7.5 INCH, AQUAPHOR 67.5 GM, BARCODE IDENTIFIER 1 EACH EXT SCH ×2 (08:14→21:17)
[2022-01-13 08:19] LABS: ALC (manual) 1.81 K/uL (1.2-3.4); ANC (manual) 1.58 K/uL (1.4-6.5); Lymphocytes # (manual) 1.77 K/uL (1.2-3.4); Lymphocytes % (manual) 45 %; Monocytes # (manual) 0.47 K/uL (0.24-0.82); Monocytes % (manual) 12 %; Myelocytes # (manual) 0.08 K/uL (0-0); Myelocytes % (manual) 2 %; Neutrophils # (manual) 1.58 K/uL (1.4-6.5); Neutrophils % (manual) 40 %; Plasma Cells # (manual) 0.04 K/uL (0-0); Plasma Cells % (manual) 1 %; Polychromasia 1+
--- NOTE | 2022-01-13 09:32 | Gastroenterology Progress Note ---
Date of Service January 13, 2022 Assessment & Plan (1) Ulcerative colitis: Plan: 46 year old female w/ newly diagnosed left sided ulcerative colitis, hemorrhoids, admitted w/ fever (38.3C) on PO and NV Mesalamine and Budesonide - Mesalamine 800mg TID - Rowasa 4g NV HS - Stop Budesonide - Methylprednisolone 20mg IV TID. - At discharge start Prednisone taper: 40mg daily x 1 week, 30mg daily x 1 week, 20mg daily x 1 week, 15mg daily x 1 week, 10mg daily x1 wee, 5mg daily x 1 week. - Need to transition to biologic - Obtained Hepatitis serologies - negative - Obtained TB Quant gold - negative acute hep - hep A IGG, hep B antibody ordered - She is self paying, in process of applying for Medicare and [employer] - We will need to wait to to initiate prior auth for biologic (Infliximab vs Adalimumab) until insurance is obtained as they will not be able to pay out of pocket - We discussed it may be best to meet with [facility] before she comes to GI office - We had discussed in detail about biologic mechanism of action, dosage, route of administration, infection, malignancy risks. - Diet as tolerated - IVF support and symptomatic management otherwise Will sign off. Thank you for allowing us to participate in the care of this patient. Please call with any acute changes, questions or concerns. Please see addendum below with additional recommendation from my supervising physician. Admission and Anticipated Discharge Date Admission Date: January 09, 2022 Subjective Pt was seen and evaluated, chart reviewed. Spouse at bedside. [employer] services used. This AM, slight abd pain. Moving bowels 2-3 times daily. Loose, blood mixed in. Tolerating PO, no nausea, vomiting. Fever resolved. Review of Systems Review of Systems: All systems reviewed & are unremarkable except as noted in HPI & below Physical Exam Constitutional: WD/WN, vitals as above Respiratory: normal respiratory effort, lungs clear to auscultation Cardiovascular: Rate/Rhythm: regular rate and regular rhythm Gastrointestinal (Abdomen): normal bowel sounds, soft, nontender, no hepatos plenomegaly Skin: no rashes, warm and dry Results & Data ([facility]) Vital Signs (Past 12 Hours) Vital Signs Temp Pulse Resp BP BP Pulse Ox O2 Del Method 01/13/22 08:00 36.7 C 71 20 112/76 96 Room Air 01/12/22 23:13 36.8 C 77 16 103/69 96 Room Air Laboratory Results 01/13/22 01/13/22 01/10/22 Range/Units 05:40 05:40 10:13 WBC 3.94 L (4.8-10.8) K/ul RBC 3.64 L (3.93-5.22) M/uL Hgb 10.0 L (12.0-16.0) g/dl Hct 31.1 L (34.1-44.9) % MCV 85.4 (80.0-100.0) fL MCH 27.5 (25.0-34.0) pg MCHC 32.2 (32.0-36.0) g/dL RDW Std Deviation 42.5 (36.4-46.3) fL RDW Coeff of Gregory 13.6 (11.5-14.5) % Plt Count 591 H (130-400) K/uL MPV 10.3 (9.4-12.3) fL Neutrophils % (Manual) 40 % Lymphocytes % (Manual) 45 % Monocytes % (Manual) 12 % Myelocytes % (Man) 2 % Plasma Cell % (Manual) 1 % Neutrophils # (Manual) 1.58 (1.4-6.5) K/uL Total Absolute Neuts 1.58 (1.4-6.5) K/uL Lymphocytes # (Manual) 1.77 (1.2-3.4) K/uL Total Abs Lymphocytes 1.81 (1.2-3.4) K/uL Monocytes # (Manual) 0.47 (0.24-0.82) K/uL Myelocytes # (Manual) 0.08 H (0-0) K/uL Plasma Cell # (Manual) 0.04 H (0-0) K/uL Polychromasia 1+ Sodium 140 (136-145) mmol/L Potassium 4.6 D (3.5-5.1) mmol/L Chloride 104 (98-107) mmol/L Carbon Dioxide 32 (21-32) mmol/L Anion Gap 4 (3-11) BUN 10 (6-23) mg/dl Creatinine 0.47 L (0.6-1.2) mg/dl Est Cr Clr Drug Dosing 142.4 ml/min Est GFR ( Amer) 137.3 ml/min Est GFR (Non-Af Amer) 118.5 ml/min BUN/Creatinine Ratio 21.3 H (10-20) Glucose 121 H (70-99(Fasting)) mg/dl Calcium 8.4 L (8.5-10.1) mg/dl TB Test (QFT) Gold Plus NEGATIVE (NEGATIVE) TB Test (QFT) Nil 0.04 IU/mL TB Test Mitogen - Nil 8.87 IU/mL TB Test Ag - Nil 1 0.00 IU/mL TB Test Ag - Nil 2 0.00 IU/mL
[2022-01-13] MEDS: LIDOCAINE 5% OINT 30 GM TUBE EXT SCH ×2 (09:49→21:17)
[2022-01-13] MEDS: methylPREDNISolone 20 MG in SYRINGE 0 ML IV SCH ×2 (12:59→21:12)
--- NOTE | 2022-01-13 13:21 | Hospitalist Progress Note ---
Date of Service January 13, 2022 Assessment & Plan (1) Ulcerative colitis: Plan: Patient was diagnosed last admission with ulcerative colitis. Colonoscopy with biopsy was done on 12/27. Comes in with increased frequency of diarrhea and fever. CT abdomen pelvis on admission shows colitis in the descending and sigmoid colon Infectious work-up including C. difficile and GI PCR panel is negative. Hemoglobin is 10.0; similar to her hemoglobin in 12/30. Plan; Continue on mesalamine 800 mg 3 times daily, Rowasa 4 g per rectal at night. -- Changed to 20 mg IV 3 times daily of prednisone. Will monitor her episodes of diarrhea and monitor her progress. If she does well; plan to start prednisone on discharge with taper every week. --Given patient's severity; will need transition to biological agents. Hepatitis serology and TB quant gold ordered. 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 Continue on ciprofloxacin and metronidazole for total of 7 days. (2) Hemorrhoids: Plan: Found to have thrombosed hemorrhoids on colonoscopy last admission. Reports pain currently. Plan; Lidocaine jelly and nitroglycerin topical Plan SCDs for DVT prophylaxis Full code DispoHome after resolution of medical issues. Admission and Anticipated Discharge Date Admission Date: January 09, 2022 Subjective Patient seen and examined at bedside. 2 episode of bowel movement which were bloody. No nocturnal bowel movement. Afebrile. Complains of lower abdominal pain. Review of Systems Review of Systems: All systems reviewed & are unremarkable except as noted in Subjective Physical Exam Physical Exam: Constitutional: WD/WN, vitals as above, NAD, sitting up in bed, pleasant, conversing easily Respiratory: normal respiratory effort, lungs clear to auscultation, no wheeze, rales, rhonchi. Normal insp/exp effort, no accessory muscle use Cardiovascular: RRR, no murmur, no edema Vessels: no JVD or carotid bruit Chest: normal inspection of chest Abdomen: Tenderness present in suprapubic area Musculoskeletal: no cyanosis or clubbing, extremities motor strength 5/5 Skin: no rashes, warm and dry normal turgor Neurologic: PERRL, EOMI, accommodation nl, no face palsy, no dysarthria CN's II- XI intact bilaterally and moves all extremities Psychiatric: A+Ox3, euthymic affect Lymphatic: no cervical or axillary lymphadenopathy : deferred Results & Data Results & Data ([facility]) Vital Signs (Past 12 Hours) Vital Signs Temp Pulse Resp BP Pulse Ox O2 Del Method 01/13/22 08:00 36.7 C 71 20 112/76 96 Room Air Laboratory Results Laboratory Results WBC 3.94 K/ul (4.8-10.8) L 01/13/22 05:40 RBC 3.64 M/uL (3.93-5.22) L 01/13/22 05:40 Hgb 10.0 g/dl (12.0-16.0) L 01/13/22 05:40 Hct 31.1 % (34.1-44.9) L 01/13/22 05:40 MCV 85.4 fL (80.0-100.0) 01/13/22 05:40 MCH 27.5 pg (25.0-34.0) 01/13/22 05:40 MCHC 32.2 g/dL (32.0-36.0) 01/13/22 05:40 RDW Std Deviation 42.5 fL (36.4-46.3) 01/13/22 05:40 RDW Coeff of Gregory 13.6 % (11.5-14.5) 01/13/22 05:40 Plt Count 591 K/uL (130-400) H 01/13/22 05:40 MPV 10.3 fL (9.4-12.3) 01/13/22 05:40 Immature Gran % (Auto) 2.0 % 01/12/22 05:32 Neut % (Auto) 58.8 % 01/12/22 05:32 Lymph % (Auto) 24.8 % 01/12/22 05:32 [place] % (Auto) 13.9 % 01/12/22 05:32 Eos % (Auto) 0.0 % 01/12/22 05:32 Baso % (Auto) 0.5 % 01/12/22 05:32 Neut # (Auto) 2.37 K/uL (1.4-6.5) 01/12/22 05:32 Lymph # (Auto) 1.00 K/uL (1.2-3.4) L 01/12/22 05:32 [place] # (Auto) 0.56 K/uL (0.24-0.82) 01/12/22 05:32 Eos # (Auto) 0.00 K/uL (0-0.50) 01/12/22 05:32 Baso # (Auto) 0.02 K/uL (0-0.2) 01/12/22 05:32 Immature Gran # (Auto) 0.08 K/uL (0.00-0.02) H 01/12/22 05:32 Neutrophils % (Manual) 40 % 01/13/22 05:40 Lymphocytes % (Manual) 45 % 01/13/22 05:40 Monocytes % (Manual) 12 % 01/13/22 05:40 Myelocytes % (Man) 2 % 01/13/22 05:40 Plasma Cell % (Manual) 1 % 01/13/22 05:40 Neutrophils # (Manual) 1.58 K/uL (1.4-6.5) 01/13/22 05:40 Total Absolute Neuts 1.58 K/uL (1.4-6.5) 01/13/22 05:40 Lymphocytes # (Manual) 1.77 K/uL (1.2-3.4) 01/13/22 05:40 Total Abs Lymphocytes 1.81 K/uL (1.2-3.4) 01/13/22 05:40 Monocytes # (Manual) 0.47 K/uL (0.24-0.82) 01/13/22 05:40 Myelocytes # (Manual) 0.08 K/uL (0-0) H 01/13/22 05:40 Plasma Cell # (Manual) 0.04 K/uL (0-0) H 01/13/22 05:40 Toxic Vacuolation 1+ 01/10/22 05:58 Polychromasia 1+ 01/13/22 05:40 Echinocytes 1+ 01/10/22 05:58 ESR 25 mm/hr (0-20) H 01/10/22 05:58 Sodium 140 mmol/L (136-145) 01/13/22 05:40 Potassium 4.6 mmol/L (3.5-5.1) D 01/13/22 05:40 Chloride 104 mmol/L (98-107) 01/13/22 05:40 Carbon Dioxide 32 mmol/L (21-32) 01/13/22 05:40 Anion Gap 4 (3-11) 01/13/22 05:40 BUN 10 mg/dl (6-23) 01/13/22 05:40 Creatinine 0.47 mg/dl (0.6-1.2) L 01/13/22 05:40 Est Cr Clr Drug Dosing 142.4 ml/min 01/13/22 05:40 Est GFR ( Amer) 137.3 ml/min 01/13/22 05:40 Est GFR (Non-Af Amer) 118.5 ml/min 01/13/22 05:40 BUN/Creatinine Ratio 21.3 (10-20) H 01/13/22 05:40 Glucose 121 mg/dl (70-99(Fasting)) H 01/13/22 05:40 Lactate 0.4 mmol/L (0.4-2.0) 01/09/22 06:30 Calcium 8.4 mg/dl (8.5-10.1) L 01/13/22 05:40 Magnesium 2.1 mg/dl (1.7-2.4) 01/09/22 00:43 Total Bilirubin 0.4 mg/dl (0.2-1.0) 01/09/22 00:43 AST 18 U/L (13-39) 01/09/22 00:43 ALT 37 U/L (7-52) 01/09/22 00:43 Alkaline Phosphatase 64 U/L (34-104) 01/09/22 00:43 C-Reactive Protein 11.03 mg/dl (0-0.5) H 01/10/22 05:58 Total Protein 6.8 gm/dl (6.0-8.3) 01/09/22 00:43 Albumin 3.3 gm/dl (3.4-5.0) L 01/09/22 00:43 Globulin 3.5 gm/dl (2.5-4.0) 01/09/22 00:43 Albumin/Globulin Ratio 0.9 (0.9-2) 01/09/22 00:43 Urine Color Yellow 01/09/22 Unknown Urine Appearance Clear (Clear) 01/09/22 Unknown Urine pH 5.5 (4.5-7.5) 01/09/22 Unknown Ur Specific [place] > 1.045 (1.000-1.030) H 01/09/22 Unknown Urine Protein Negative (Negative) 01/09/22 Unknown Urine Glucose (UA) Negative (Negative) 01/09/22 Unknown Urine Ketones 4+ (Negative) H 01/09/22 Unknown Urine Blood Negative (Negative) 01/09/22 Unknown Urine Nitrite Negative (Negative) 01/09/22 Unknown Urine Bilirubin Negative (Negative) 01/09/22 Unknown Urine Urobilinogen Negative (Negative) 01/09/22 Unknown Ur Leukocyte Esterase Negative (Negative) 01/09/22 Unknown Urine Test Negative (Negative) 01/09/22 Unknown Stl C. cayetanensis PCR Not Detected (NotDetected) 01/09/22 18:00 Stool Rotavirus A PCR Not Detected (NotDetected) 01/09/22 18:00 Stl Adenov F 40/41 PCR Not Detected (NotDetected) 01/09/22 18:00 Stool Astrovirus (PCR) Not Detected (NotDetected) 01/09/22 18:00 Stool Campylobacter PCR Not Detected (NotDetected) 01/09/22 18:00 Stl C. diff Tox B Gene Cancelled 01/09/22 18:00 Stl C. diff Tox A/B PCR Not Detected (NotDetected) 01/09/22 18:00 Stool Cryptosporidium PCR Not Detected (NotDetected) 01/09/22 18:00 Stl E.coli Shiga Tox PCR Not Detected (NotDetected) 01/09/22 18:00 Stl Enterotoxigenic E PCR Not Detected (NotDetected) 01/09/22 18:00 Stool EPEC (PCR) Not Detected (NotDetected) 01/09/22 18:00 Stool EAEC (PCR) Not Detected (NotDetected) 01/09/22 18:00 Stl E. histolytica PCR Not Detected (NotDetected) 01/09/22 18:00 Stool Giardia Lamblia PCR Not Detected (NotDetected) 01/09/22 18:00 Stool Salmonella PCR Not Detected (NotDetected) 01/09/22 18:00 Stool Sapovirus (PCR) Not Detected (NotDetected) 01/09/22 18:00 Stl P. shigelloides PCR Not Detected (NotDetected) 01/09/22 18:00 Stl Shigella/EIEC PCR Not Detected (NotDetected) 01/09/22 18:00 St Y.enterocolitica PCR Not Detected (NotDetected) 01/09/22 18:00 Stool Vibrio (PCR) Not Detected (NotDetected) 01/09/22 18:00 Stl Vibrio cholerae PCR Not Detected (NotDetected) 01/09/22 18:00 Stl Norovirus GI/GII PCR Not Detected (NotDetected) 01/09/22 18:00 SARS-CoV-2 (PCR) NEGATIVE (Negative) 01/09/22 Unknown Hepatitis A IgM Ab NON-REACTIVE (NON-REACTIVE) 01/10/22 10:13 Hep Bs Antigen NON-REACTIVE (NON-REACTIVE) 01/10/22 10:13 Hep Bs Ag Confirmation TNP 01/10/22 10:13 Hep B Core IgM Ab NON-REACTIVE (NON-REACTIVE) 01/10/22 10:13 Hepatitis C Ab (EIA) NON-REACTIVE (NON-REACTIVE) 01/10/22 10:13 Hep C Ab Signal/Cutoff 0.03 (<1.00) 01/10/22 10:13 Influenza Type A (PCR) Negative (Neg) 01/09/22 Unknown Influenza Type B (PCR) Negative (Neg) 01/09/22 Unknown RSV (RT-PCR) Negative (Neg) 01/09/22 Unknown TB Test (QFT) Gold Plus NEGATIVE (NEGATIVE) 01/10/22 10:13 TB Test (QFT) Nil 0.04 IU/mL 01/10/22 10:13 TB Test Mitogen - Nil 8.87 IU/mL 01/10/22 10:13 TB Test Ag - Nil 1 0.00 IU/mL 01/10/22 10:13 TB Test Ag - Nil 2 0.00 IU/mL 01/10/22 10:13 Impressions Chest X-Ray 01/08/22 23:55 XR chest 1V portable HISTORY: Fever COMPARISON: None. FINDINGS: The lungs are clear. Cardiac silhouette is normal in size. No pleural effusions. No pneumothorax. IMPRESSION: No acute process. ACT 112: Negative or not required by law. Electronically signed by: Rafael Teague M.D. 01/09/2022 8:43 AM Abdomen/Pelvis CT 01/09/22 02:59 CT abd pelvis IV con only CLINICAL HISTORY: ulcerative colitis, fever TECHNIQUE: Helical axial images of the abdomen and pelvis were obtained and displayed. Automated dose lowering techniques and/or adjustment according to patient size were utilized for this exam. This exam was performed with intravenous contrast. CT DOSE: 405.70 mGy.cm COMPARISON: Comparison is made to CT abdomen pelvis 12/27/2021 FINDINGS: Lower chest: No acute abnormality Liver: Unremarkable. No focal lesions are seen. Gallbladder and biliary tree: No calcified gallstones. Normal caliber wall. No intra- or extrahepatic biliary ductal dilation. Pancreas: Unremarkable, no focal lesions. Spleen: Unremarkable. Adrenals: Unremarkable. Kidneys and ureters: Unremarkable. Bladder: Unremarkable. Reproductive organs: Wall thickening and edema with surrounding fat stranding is seen involving the distal transverse colon, descending, and sigmoid colon. The appendix is normal. Bowel: Unremarkable. Lymph nodes Retroperitoneal: Subcentimeter lymph nodes are noted. Pelvic: Unremarkable. Mesenteric: Subcentimeter lymph nodes are noted. Peritoneum: Mild fat stranding is again noted in the left hemicolon. Vessels: Unremarkable. Abdominal wall: Unremarkable. Bones: Unremarkable. IMPRESSION: Redemonstration of colitis in the descending and sigmoid colon in this patient with history of ulcerative colitis. No fluid collection or pneumoperitoneum. ACT 112: Negative or not required by law. Electronically signed by: Eder Marinelli M.D. 01/09/2022 10:03 AM
[2022-01-13] MEDS: MESALAMINE 4 GM/60 ML ENEMA PR SCH (22:11)
[2022-01-13] MEDS: CIPROFLOXACIN 500 MG TAB PO SCH (22:11)
[2022-01-13] MEDS: metroNIDAZOLE 500 MG TAB PO SCH (22:11)
[2022-01-14] MEDS: methylPREDNISolone 20 MG in SYRINGE 0 ML IV SCH (05:29)
[2022-01-14 06:34] LABS: Hemoglobin 10.2 g/dl (12.0-16.0); Mean Corpuscular Hemoglobin 27.2 pg (25.0-34.0); Mean Corpuscular Hgb Conc 31.9 g/dL (32.0-36.0); Mean Corpuscular Volume 85.3 fL (80.0-100.0); Mean Platelet Volume 9.8 fL (9.4-12.3); Platelet Count 598 K/uL (130-400); RDW Coefficient of Variation 13.7 % (11.5-14.5); RDW Standard Deviation 42.2 fL (36.4-46.3); Red Blood Count 3.75 M/uL (3.93-5.22); White Blood Count 4.94 K/ul (4.8-10.8)
[2022-01-14 06:54] LABS: BUN Creatinine Ratio 21.6 (10-20); Calcium 8.2 mg/dl (8.5-10.1); Creatinine Clr Calc Pharmacy 131.2 ml/min; Est GFR (African American) 133.7 ml/min; Est GFR (Non-African American) 115.3 ml/min; Potassium 4.3 mmol/L (3.5-5.1)
[2022-01-14 06:58] LABS: Basophils # (auto) 0.02 K/uL (0-0.2); Basophils % (auto) 0.4 %; Eosinophils # (auto) 0.02 K/uL (0-0.50); Eosinophils % (auto) 0.4 %; Immature Granulocytes # (auto) 0.12 K/uL (0.00-0.02); Immature Granulocytes % (auto) 2.4 %; Lymphocytes # (auto) 1.68 K/uL (1.2-3.4); Monocytes # (auto) 0.78 K/uL (0.24-0.82); Monocytes % (auto) 15.8 %; Neutrophils # (auto) 2.32 K/uL (1.4-6.5); Polychromasia 1+
[2022-01-14] MEDS: MESALAMINE 800 MG TABCR PO SCH ×3 (09:09→22:03)
[2022-01-14] MEDS: metroNIDAZOLE 500 MG TAB PO SCH ×3 (09:09→22:04)
[2022-01-14] MEDS: NITROGLYCERIN 2% 7.5 INCH, AQUAPHOR 67.5 GM, BARCODE IDENTIFIER 1 EACH EXT SCH ×2 (09:09→22:04)
[2022-01-14] MEDS: LIDOCAINE 5% OINT 30 GM TUBE EXT SCH ×2 (09:09→22:02)
[2022-01-14] MEDS: CIPROFLOXACIN 500 MG TAB PO SCH ×2 (09:09→22:02)
[2022-01-14] MEDS: PANTOprazole 40 MG TAB PO SCH (11:35)
[2022-01-14] MEDS: predniSONE 20 MG TAB PO SCH (11:35)
--- NOTE | 2022-01-14 12:36 | Hospitalist Progress Note ---
Date of Service January 14, 2022 Assessment & Plan (1) Ulcerative colitis: Plan: Patient was diagnosed last admission with ulcerative colitis. Colonoscopy with biopsy was done on 12/27. Comes in with increased frequency of diarrhea and fever. CT abdomen pelvis on admission shows colitis in the descending and sigmoid colon Infectious work-up including C. difficile and GI PCR panel is negative. Hemoglobin is similar to her baseline. Plan; Continue on mesalamine 800 mg 3 times daily, Rowasa 4 g per rectal at night. -After discussion with patient in detail; patient wants to start trial of oral prednisone here in the hospital today and see if she can tolerate it or not. If patient symptoms are better controlled tomorrow; plan to discharge on oral steroid taper starting with 40 mg once a day. -Patient is started on Protonix due to epigastric discomfort. She has been on a steroid for a long duration. - -Given patient's severity; will need transition to biological agents. Patient does not have insurance presently;watch case polisher on board. Continue on ciprofloxacin and metronidazole for total of 7 days. (2) Hemorrhoids: Plan: Found to have thrombosed hemorrhoids on colonoscopy last admission. Reports pain currently. Plan; Lidocaine jelly and nitroglycerin topical Plan SCDs for DVT prophylaxis Full code DispoHome after resolution of medical issues. Admission and Anticipated Discharge Date Admission Date: January 09, 2022 Subjective Patient seen and examined at bedside. Java Consultant used to communicate with the patient. Patient was at the bedside. She had 5 episodes of bloody bowel movement. No episode of fever overnight. She is reluctant to start solid diet. She feels comfortable at present diet. Discussed in detail regarding difficulty in controlling her symptoms. She does not feel comfortable getting discharged to her home on present level of symptoms. Review of Systems Review of Systems: All systems reviewed & are unremarkable except as noted in Subjective Physical Exam Physical Exam: Constitutional: WD/WN, vitals as above, NAD, sitting up in bed, pleasant, conversing easily Respiratory: normal respiratory effort, lungs clear to auscultation, no wheeze, rales, rhonchi. Normal insp/exp effort, no accessory muscle use Cardiovascular: RRR, no murmur, no edema Vessels: no JVD or carotid bruit Chest: normal inspection of chest Abdomen: Tenderness present in suprapubic area Musculoskeletal: no cyanosis or clubbing, extremities motor strength 5/5 Skin: no rashes, warm and dry normal turgor Neurologic: PERRL, EOMI, accommodation nl, no face palsy, no dysarthria CN's II- XI intact bilaterally and moves all extremities Psychiatric: A+Ox3, euthymic affect Lymphatic: no cervical or axillary lymphadenopathy : deferred Results & Data Results & Data ([facility]) Vital Signs (Past 12 Hours) Vital Signs Temp Pulse Resp BP Pulse Ox O2 Del Method 01/14/22 07:55 36.7 C 82 18 93/62 L 96 Room Air Laboratory Results Laboratory Results WBC 4.94 K/ul (4.8-10.8) 01/14/22 05:34 RBC 3.75 M/uL (3.93-5.22) L 01/14/22 05:34 Hgb 10.2 g/dl (12.0-16.0) L 01/14/22 05:34 Hct 32.0 % (34.1-44.9) L 01/14/22 05:34 MCV 85.3 fL (80.0-100.0) 01/14/22 05:34 MCH 27.2 pg (25.0-34.0) 01/14/22 05:34 MCHC 31.9 g/dL (32.0-36.0) L 01/14/22 05:34 RDW Std Deviation 42.2 fL (36.4-46.3) 01/14/22 05:34 RDW Coeff of Gregory 13.7 % (11.5-14.5) 01/14/22 05:34 Plt Count 598 K/uL (130-400) H 01/14/22 05:34 MPV 9.8 fL (9.4-12.3) 01/14/22 05:34 Immature Gran % (Auto) 2.4 % 01/14/22 05:34 Neut % (Auto) 47.0 % 01/14/22 05:34 Lymph % (Auto) 34.0 % 01/14/22 05:34 [place] % (Auto) 15.8 % 01/14/22 05:34 Eos % (Auto) 0.4 % 01/14/22 05:34 Baso % (Auto) 0.4 % 01/14/22 05:34 Neut # (Auto) 2.32 K/uL (1.4-6.5) 01/14/22 05:34 Lymph # (Auto) 1.68 K/uL (1.2-3.4) 01/14/22 05:34 [place] # (Auto) 0.78 K/uL (0.24-0.82) 01/14/22 05:34 Eos # (Auto) 0.02 K/uL (0-0.50) 01/14/22 05:34 Baso # (Auto) 0.02 K/uL (0-0.2) 01/14/22 05:34 Immature Gran # (Auto) 0.12 K/uL (0.00-0.02) H 01/14/22 05:34 Neutrophils % (Manual) 40 % 01/13/22 05:40 Lymphocytes % (Manual) 45 % 01/13/22 05:40 Monocytes % (Manual) 12 % 01/13/22 05:40 Myelocytes % (Man) 2 % 01/13/22 05:40 Plasma Cell % (Manual) 1 % 01/13/22 05:40 Neutrophils # (Manual) 1.58 K/uL (1.4-6.5) 01/13/22 05:40 Total Absolute Neuts 1.58 K/uL (1.4-6.5) 01/13/22 05:40 Lymphocytes # (Manual) 1.77 K/uL (1.2-3.4) 01/13/22 05:40 Total Abs Lymphocytes 1.81 K/uL (1.2-3.4) 01/13/22 05:40 Monocytes # (Manual) 0.47 K/uL (0.24-0.82) 01/13/22 05:40 Myelocytes # (Manual) 0.08 K/uL (0-0) H 01/13/22 05:40 Plasma Cell # (Manual) 0.04 K/uL (0-0) H 01/13/22 05:40 Toxic Vacuolation 1+ 01/10/22 05:58 Polychromasia 1+ 01/14/22 05:34 Echinocytes 1+ 01/10/22 05:58 ESR 25 mm/hr (0-20) H 01/10/22 05:58 Sodium 138 mmol/L (136-145) 01/14/22 05:34 Potassium 4.3 mmol/L (3.5-5.1) 01/14/22 05:34 Chloride 103 mmol/L (98-107) 01/14/22 05:34 Carbon Dioxide 31 mmol/L (21-32) 01/14/22 05:34 Anion Gap 4 (3-11) 01/14/22 05:34 BUN 11 mg/dl (6-23) 01/14/22 05:34 Creatinine 0.51 mg/dl (0.6-1.2) L 01/14/22 05:34 Est Cr Clr Drug Dosing 131.2 ml/min 01/14/22 05:34 Est GFR ( Amer) 133.7 ml/min 01/14/22 05:34 Est GFR (Non-Af Amer) 115.3 ml/min 01/14/22 05:34 BUN/Creatinine Ratio 21.6 (10-20) H 01/14/22 05:34 Glucose 111 mg/dl (70-99(Fasting)) H 01/14/22 05:34 Lactate 0.4 mmol/L (0.4-2.0) 01/09/22 06:30 Calcium 8.2 mg/dl (8.5-10.1) L 01/14/22 05:34 Magnesium 2.1 mg/dl (1.7-2.4) 01/09/22 00:43 Total Bilirubin 0.4 mg/dl (0.2-1.0) 01/09/22 00:43 AST 18 U/L (13-39) 01/09/22 00:43 ALT 37 U/L (7-52) 01/09/22 00:43 Alkaline Phosphatase 64 U/L (34-104) 01/09/22 00:43 C-Reactive Protein 11.03 mg/dl (0-0.5) H 01/10/22 05:58 Total Protein 6.8 gm/dl (6.0-8.3) 01/09/22 00:43 Albumin 3.3 gm/dl (3.4-5.0) L 01/09/22 00:43 Globulin 3.5 gm/dl (2.5-4.0) 01/09/22 00:43 Albumin/Globulin Ratio 0.9 (0.9-2) 01/09/22 00:43 Urine Color Yellow 01/09/22 Unknown Urine Appearance Clear (Clear) 01/09/22 Unknown Urine pH 5.5 (4.5-7.5) 01/09/22 Unknown Ur Specific [place] > 1.045 (1.000-1.030) H 01/09/22 Unknown Urine Protein Negative (Negative) 01/09/22 Unknown Urine Glucose (UA) Negative (Negative) 01/09/22 Unknown Urine Ketones 4+ (Negative) H 01/09/22 Unknown Urine Blood Negative (Negative) 01/09/22 Unknown Urine Nitrite Negative (Negative) 01/09/22 Unknown Urine Bilirubin Negative (Negative) 01/09/22 Unknown Urine Urobilinogen Negative (Negative) 01/09/22 Unknown Ur Leukocyte Esterase Negative (Negative) 01/09/22 Unknown Urine Test Negative (Negative) 01/09/22 Unknown Stl C. cayetanensis PCR Not Detected (NotDetected) 01/09/22 18:00 Stool Rotavirus A PCR Not Detected (NotDetected) 01/09/22 18:00 Stl Adenov F 40/41 PCR Not Detected (NotDetected) 01/09/22 18:00 Stool Astrovirus (PCR) Not Detected (NotDetected) 01/09/22 18:00 Stool Campylobacter PCR Not Detected (NotDetected) 01/09/22 18:00 Stl C. diff Tox B Gene Cancelled 01/09/22 18:00 Stl C. diff Tox A/B PCR Not Detected (NotDetected) 01/09/22 18:00 Stool Cryptosporidium PCR Not Detected (NotDetected) 01/09/22 18:00 Stl E.coli Shiga Tox PCR Not Detected (NotDetected) 01/09/22 18:00 Stl Enterotoxigenic E PCR Not Detected (NotDetected) 01/09/22 18:00 Stool EPEC (PCR) Not Detected (NotDetected) 01/09/22 18:00 Stool EAEC (PCR) Not Detected (NotDetected) 01/09/22 18:00 Stl E. histolytica PCR Not Detected (NotDetected) 01/09/22 18:00 Stool Giardia Lamblia PCR Not Detected (NotDetected) 01/09/22 18:00 Stool Salmonella PCR Not Detected (NotDetected) 01/09/22 18:00 Stool Sapovirus (PCR) Not Detected (NotDetected) 01/09/22 18:00 Stl P. shigelloides PCR Not Detected (NotDetected) 01/09/22 18:00 Stl Shigella/EIEC PCR Not Detected (NotDetected) 01/09/22 18:00 St Y.enterocolitica PCR Not Detected (NotDetected) 01/09/22 18:00 Stool Vibrio (PCR) Not Detected (NotDetected) 01/09/22 18:00 Stl Vibrio cholerae PCR Not Detected (NotDetected) 01/09/22 18:00 Stl Norovirus GI/GII PCR Not Detected (NotDetected) 01/09/22 18:00 SARS-CoV-2 (PCR) NEGATIVE (Negative) 01/09/22 Unknown Hepatitis A IgM Ab NON-REACTIVE (NON-REACTIVE) 01/10/22 10:13 Hep Bs Antigen NON-REACTIVE (NON-REACTIVE) 01/10/22 10:13 Hep Bs Ag Confirmation TNP 01/10/22 10:13 Hep B Core IgM Ab NON-REACTIVE (NON-REACTIVE) 01/10/22 10:13 Hepatitis C Ab (EIA) NON-REACTIVE (NON-REACTIVE) 01/10/22 10:13 Hep C Ab Signal/Cutoff 0.03 (<1.00) 01/10/22 10:13 Influenza Type A (PCR) Negative (Neg) 01/09/22 Unknown Influenza Type B (PCR) Negative (Neg) 01/09/22 Unknown RSV (RT-PCR) Negative (Neg) 01/09/22 Unknown TB Test (QFT) Gold Plus NEGATIVE (NEGATIVE) 01/10/22 10:13 TB Test (QFT) Nil 0.04 IU/mL 01/10/22 10:13 TB Test Mitogen - Nil 8.87 IU/mL 01/10/22 10:13 TB Test Ag - Nil 1 0.00 IU/mL 01/10/22 10:13 TB Test Ag - Nil 2 0.00 IU/mL 01/10/22 10:13 Impressions Chest X-Ray 01/08/22 23:55 XR chest 1V portable HISTORY: Fever COMPARISON: None. FINDINGS: The lungs are clear. Cardiac silhouette is normal in size. No pleural effusions. No pneumothorax. IMPRESSION: No acute process. ACT 112: Negative or not required by law. Electronically signed by: Rafael Teague M.D. 01/09/2022 8:43 AM Abdomen/Pelvis CT 01/09/22 02:59 CT abd pelvis IV con only CLINICAL HISTORY: ulcerative colitis, fever TECHNIQUE: Helical axial images of the abdomen and pelvis were obtained and displayed. Automated dose lowering techniques and/or adjustment according to patient size were utilized for this exam. This exam was performed with intravenous contrast. CT DOSE: 405.70 mGy.cm COMPARISON: Comparison is made to CT abdomen pelvis 12/27/2021 FINDINGS: Lower chest: No acute abnormality Liver: Unremarkable. No focal lesions are seen. Gallbladder and biliary tree: No calcified gallstones. Normal caliber wall. No intra- or extrahepatic biliary ductal dilation. Pancreas: Unremarkable, no focal lesions. Spleen: Unremarkable. Adrenals: Unremarkable. Kidneys and ureters: Unremarkable. Bladder: Unremarkable. Reproductive organs: Wall thickening and edema with surrounding fat stranding is seen involving the distal transverse colon, descending, and sigmoid colon. The appendix is normal. Bowel: Unremarkable. Lymph nodes Retroperitoneal: Subcentimeter lymph nodes are noted. Pelvic: Unremarkable. Mesenteric: Subcentimeter lymph nodes are noted. Peritoneum: Mild fat stranding is again noted in the left hemicolon. Vessels: Unremarkable. Abdominal wall: Unremarkable. Bones: Unremarkable. IMPRESSION: Redemonstration of colitis in the descending and sigmoid colon in this patient with history of ulcerative colitis. No fluid collection or pneumoperitoneum. ACT 112: Negative or not required by law. Electronically signed by: Eder Marinelli M.D. 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
[2022-01-14] MEDS: MESALAMINE 4 GM/60 ML ENEMA PR SCH (22:03)
[2022-01-15 05:56] LABS: Basophils # (auto) 0.02 K/uL (0-0.2); Basophils % (auto) 0.3 %; Eosinophils # (auto) 0.14 K/uL (0-0.50); Eosinophils % (auto) 2.1 %; Hematocrit (blood only) 32.1 % (34.1-44.9); Hemoglobin 10.2 g/dl (12.0-16.0); Immature Granulocytes # (auto) 0.14 K/uL (0.00-0.02); Immature Granulocytes % (auto) 2.1 %; Lymphocytes # (auto) 2.21 K/uL (1.2-3.4); Lymphocytes % (auto) 33.8 %; Mean Corpuscular Hemoglobin 27.1 pg (25.0-34.0); Mean Corpuscular Hgb Conc 31.8 g/dL (32.0-36.0); Mean Corpuscular Volume 85.4 fL (80.0-100.0); Mean Platelet Volume 9.6 fL (9.4-12.3); Monocytes # (auto) 0.75 K/uL (0.24-0.82); Monocytes % (auto) 11.5 %; Neutrophils # (auto) 3.28 K/uL (1.4-6.5); Neutrophils % (auto) 50.2 %; Platelet Count 554 K/uL (130-400); RDW Coefficient of Variation 13.8 % (11.5-14.5); RDW Standard Deviation 42.8 fL (36.4-46.3); Red Blood Count 3.76 M/uL (3.93-5.22); White Blood Count 6.54 K/ul (4.8-10.8)
[2022-01-15 06:24] LABS: BUN Creatinine Ratio 19.3 (10-20); Calcium 8.2 mg/dl (8.5-10.1); Creatinine Clr Calc Pharmacy 117.4 ml/min; Est GFR (African American) 128.9 ml/min; Est GFR (Non-African American) 111.2 ml/min; Potassium 4.3 mmol/L (3.5-5.1)
[2022-01-15] MEDS: NITROGLYCERIN 2% 7.5 INCH, AQUAPHOR 67.5 GM, BARCODE IDENTIFIER 1 EACH EXT SCH ×2 (08:41→22:04)
[2022-01-15] MEDS: LIDOCAINE 5% OINT 30 GM TUBE EXT SCH ×2 (08:41→22:06)
[2022-01-15] MEDS: PANTOprazole 40 MG TAB PO SCH (08:44)
[2022-01-15] MEDS: MESALAMINE 800 MG TABCR PO SCH ×3 (08:44→22:04)
[2022-01-15] MEDS: metroNIDAZOLE 500 MG TAB PO SCH ×3 (08:44→22:03)
[2022-01-15] MEDS: predniSONE 20 MG TAB PO SCH (08:44)
[2022-01-15] MEDS: CIPROFLOXACIN 500 MG TAB PO SCH ×2 (08:45→22:04)
[2022-01-15] MEDS ORDERED: Nursing to Pharmacy Communication SCH (13:45)
[2022-01-15] MEDS: CHOLESTYRAMINE LIGHT 4 GM PKT PO SCH (14:20)
--- NOTE | 2022-01-15 18:16 | Hospitalist Progress Note ---
Date of Service January 15, 2022 Assessment & Plan (1) Ulcerative colitis: Plan: Ulcerative colitis --CT ABD: Redemonstration of colitis in the descending and sigmoid colon in this patient with history of ulcerative colitis. No fluid collection or pneumoper itoneum. --Colonoscopy with biopsy was done on 12/27. --Pathology: The biopsies show a chronic colitis with severe activity (ulceration present). While not completely specific, the pattern of inflammation is in keeping with inflammatory bowel disease. Clinical correlation is recommended. --Stool Studies: Negative Continue on mesalamine 800 mg 3 times daily, Rowasa 4 g per rectal at night. -On budesonide held Started on prednisone taper course Advance diet as tolerated Continue PPI Will need to transition to biological agents--Currently held due to Insurance issues Continue on ciprofloxacin and metronidazole for total of 7 days Appreciate GI Input (2) Hemorrhoids: Plan: Found to have thrombosed hemorrhoids on colonoscopy last admission. Lidocaine jelly and nitroglycerin topical Monitor CBC Plan DVT Px: SCDs Code Status Full code Admission and Anticipated Discharge Date Admission Date: January 09, 2022 Subjective Patient is seen and examined at bedside States having abdominal pain associate with nausea Also reports poor appetite Had 2 loose brown bowel movements today Discussed with patient's family at bedside and also with GI over the phone Offers no other complaints Review of Systems Review of Systems: All systems reviewed & are unremarkable except as noted in Subjective Physical Exam Physical Exam: Physical Exam: Vitals signs as noted above General Appearance:Moderately built and nourished, no apparent distress Head: normocephalic, Atraumatic Eyes: normal inspection, EOMI Neck: supple, Trachea midline Respiratory/Chest: Normal breath sounds, CTA, No accessory muscle use Cardiovascular: S1, S2, No murmur Abdomen/GI:Soft, LLQ tender, Bowel sounds present Extremities/Musculoskeletal:normal inspection, no edema Neurologic/Psych:AAOX3, grossly no focal neurological deficits Skin: normal color, warm Results & Data Results & Data ([facility]) Vital Signs (Past 12 Hours) Vital Signs Temp Pulse Resp BP BP Pulse Ox O2 Del Method 01/15/22 16:14 37.1 C 73 20 95/63 L 96 Room Air 01/15/22 07:22 36.8 C 88 20 108/72 97 Room Air Laboratory Results Short CBC 01/15/22 Range/Units 05:24 WBC 6.54 (4.8-10.8) K/ul Hgb 10.2 L (12.0-16.0) g/dl Hct 32.1 L (34.1-44.9) % Plt Count 554 H (130-400) K/uL [facility] 01/15/22 05:24 Sodium 137 Potassium 4.3 Chloride 104 Carbon Dioxide 29 BUN 11 Creatinine 0.57 L Glucose 91 Calcium 8.2 L (1) Ulcerative colitis Digestive disease complication type: with rectal bleeding Ulcerative colitis location: ulcerative rectosigmoiditis Qualified Code(s): K51.311 - Ulcerative (chronic) rectosigmoiditis with rectal bleeding
[2022-01-15] MEDS: MESALAMINE 4 GM/60 ML ENEMA PR SCH (22:07)
[2022-01-16 06:19] LABS: Hematocrit (blood only) 32.1 % (34.1-44.9); Hemoglobin 10.5 g/dl (12.0-16.0)
[2022-01-16 07:01] LABS: BUN Creatinine Ratio 26.7 (10-20); Calcium 7.8 mg/dl (8.5-10.1); Creatinine Clr Calc Pharmacy 148.7 ml/min; Est GFR (African American) 139.3 ml/min; Est GFR (Non-African American) 120.2 ml/min; Potassium 3.5 mmol/L (3.5-5.1)
[2022-01-16 07:21] LABS: Hepatitis A Antibody Total NON-REACTIVE (NON-REACTIVE); Hepatitis BE Antibody Reactive
[2022-01-16] MEDS: NITROGLYCERIN 2% 7.5 INCH, AQUAPHOR 67.5 GM, BARCODE IDENTIFIER 1 EACH EXT SCH (08:20)
[2022-01-16] MEDS: PANTOprazole 40 MG TAB PO SCH (08:20)
[2022-01-16] MEDS: predniSONE 20 MG TAB PO SCH (08:20)
[2022-01-16] MEDS: CIPROFLOXACIN 500 MG TAB PO SCH (08:20)
[2022-01-16] MEDS: metroNIDAZOLE 500 MG TAB PO SCH ×2 (08:20→13:28)
[2022-01-16] MEDS: MESALAMINE 800 MG TABCR PO SCH (08:20)
[2022-01-16] MEDS: LIDOCAINE 5% OINT 30 GM TUBE EXT SCH (08:21)
--- NOTE | 2022-01-16 09:33 | Gastroenterology Progress Note ---
Date of Service January 16, 2022 Assessment & Plan (1) Ulcerative colitis: Plan: 46 year old female w/ newly diagnosed left sided ulcerative colitis, hemorrhoids, admitted w/ fever (38.3C) on PO and MD Mesalamine and Budesonide Stated on Questran PRN diarrhea, feeling improved, wishes to go home today - PO Mesalamine 800mg TID - Rowasa 4g MD HS - At discharge start Prednisone taper: 40mg daily x 1 week, 30mg daily x 1 week, 20mg daily x 1 week, 15mg daily x 1 week, 10mg daily x1 week, 5mg daily x 1 week. - Need to transition to biologic - Obtained Hepatitis serologies - negative - Obtained TB Quant gold - negative acute hep - hep A IGG, hep B antibody ordered, yet to result - She is self paying, in process of applying for Medicare and [employer] - We will need to wait to to initiate prior auth for biologic (Infliximab vs Adalimumab) until insurance is obtained as they will not be able to pay out of pocket - We discussed it may be best to meet with [facility] before she comes to GI office - We had discussed in detail about biologic mechanism of action, dosage, route of administration, infection, malignancy risks. - Diet as tolerated - IVF support and symptomatic management otherwise Will sign off. Thank you for allowing us to participate in the care of this patient. Please call with any acute changes, questions or concerns. Please see addendum below with additional recommendation from my supervising physician. Admission and Anticipated Discharge Date Admission Date: January 09, 2022 Subjective GI was asked to re-evaluate. Pt notes that today she is feeling well. Wants to go home. I encouraged her to try to slowly advance her diet to bland foods. Denies abd pain Having semi-formed stools Less bleeding. Review of Systems Review of Systems: All systems reviewed & are unremarkable except as noted in HPI & below Physical Exam Constitutional: WD/WN, vitals as above Neck: normal visual inspection and trachea midline Respiratory: normal respiratory effort Cardiovascular: Rate/Rhythm: regular rate Gastrointestinal (Abdomen): normal bowel sounds, soft, nontender, no hepatosplenomegaly Skin: no rashes, warm and dry Results & Data ([facility]) Vital Signs (Past 12 Hours) Vital Signs Temp Pulse Resp BP Pulse Ox O2 Del Method 01/16/22 07:58 37.0 C 86 17 94/69 L 96 Room Air 01/15/22 22:52 36.7 C 78 16 109/74 95 Room Air Laboratory Results 01/16/22 01/16/22 01/13/22 Range/Units 05:36 05:36 05:50 Hgb 10.5 L (12.0-16.0) g/dl Hct 32.1 L (34.1-44.9) % Sodium 135 L (136-145) mmol/L Potassium 3.5 (3.5-5.1) mmol/L Chloride 103 (98-107) mmol/L Carbon Dioxide 26 (21-32) mmol/L Anion Gap 6 (3-11) BUN 12 (6-23) mg/dl Creatinine 0.45 L (0.6-1.2) mg/dl Est Cr Clr Drug Dosing 148.7 ml/min Est GFR ( Amer) 139.3 ml/min Est GFR (Non-Af Amer) 120.2 ml/min BUN/Creatinine Ratio 26.7 H (10-20) Glucose 84 (70-99(Fasting)) mg/dl Calcium 7.8 L (8.5-10.1) mg/dl Hepatitis A Ab Total NON-REACTIVE (NON-REACTIVE) Hepatitis Be Antibody Reactive A (1) Ulcerative colitis Digestive disease complication type: with rectal bleeding Ulcerative colitis location: ulcerative rectosigmoiditis Qualified Code(s): K51.311 - Ulcerative (chronic) rectosigmoiditis with rectal bleeding
[2022-01-16] MEDS: CHOLESTYRAMINE LIGHT 4 GM PKT PO SCH (10:54)
--- NOTE | 2022-01-16 14:28 | Hospitalist Progress Note ---
Date of Service January 16, 2022 Assessment & Plan (1) Ulcerative colitis: Plan: Ulcerative colitis --CT ABD: Redemonstration of colitis in the descending and sigmoid colon in this patient with history of ulcerative colitis. No fluid collection or pneumoper itoneum. --Colonoscopy with biopsy was done on 12/27. --Pathology: The biopsies show a chronic colitis with severe activity (ulceration present). While not completely specific, the pattern of inflammation is in keeping with inflammatory bowel disease. Clinical correlation is recommended. --Stool Studies: Negative Continue on mesalamine 800 mg 3 times daily, Rowasa 4 g per rectal at night. -On budesonide held Started on prednisone taper course Tolerating diet Continue PPI Will need to transition to biological agents--Currently held due to Insurance issues Will Completed ciprofloxacin and metronidazole 7 day course today Appreciate GI Input--Needs followup as outpatient Did not tolerate Questran--Refuses to continue Plan to discharge on Prednisone Taper course: 40mg daily x 1 week, 30mg daily x 1 week, 20mg daily x 1 week, 15mg daily x 1 week, 10mg daily x1 week, 5mg daily x 1 week. Advised to follow up with GI as outpatient (2) Hemorrhoids: Plan: Found to have thrombosed hemorrhoids on colonoscopy last admission. Lidocaine jelly and nitroglycerin topical Monitor CBC Plan DVT Px: SCDs Code Status Full code Disposition Home Admission and Anticipated Discharge Date Admission Date: January 09, 2022 Subjective Patient is seen and examined at bedside States feeling better Tolerated diet today Reports brown semiformed stools Hb Stable No new complaints Eager to get discharged home Review of Systems Review of Systems: All systems reviewed & are unremarkable except as noted in Subjective Physical Exam Physical Exam: Physical Exam: Vitals signs as noted above General Appearance:Moderately built and nourished, no apparent distress Head: normocephalic, Atraumatic Eyes: normal inspection, EOMI Neck: supple, Trachea midline Respiratory/Chest: Normal breath sounds, CTA, No accessory muscle use Cardiovascular: S1, S2, No murmur Abdomen/GI:Soft, non tender, Bowel sounds present Extremities/Musculoskeletal:normal inspection, no edema Neurologic/Psych:AAOX3, grossly no focal neurological deficits Skin: normal color, warm Results & Data Results & Data ([facility]) Vital Signs (Past 12 Hours) Vital Signs Temp Pulse Resp BP Pulse Ox O2 Del Method 01/16/22 07:58 37.0 C 86 17 94/69 L 96 Room Air Laboratory Results Short CBC 01/16/22 Range/Units 05:36 Hgb 10.5 L (12.0-16.0) g/dl Hct 32.1 L (34.1-44.9) % BMP 01/16/22 05:36 Sodium 135 L Potassium 3.5 Chloride 103 Carbon Dioxide 26 BUN 12 Creatinine 0.45 L Glucose 84 Calcium 7.8 L (1) Ulcerative colitis Digestive disease complication type: with rectal bleeding Ulcerative colitis location: ulcerative rectosigmoiditis Qualified Code(s): K51.311 - Ulcerative (chronic) rectosigmoiditis with rectal bleeding
--- NOTE | 2022-01-16 14:38 | Discharge Summary ---
Date of Service January 16, 2022 Admission HPI Per Admitting Provider History obtained from patient, family, and records. History somewhat limited from patient secondary to language barrier. Medical history significant for recent diagnosis of ulcerative colitis. Last confinement 2 weeks ago for lower GI bleed attributed to new diagnosis of ulcerative colitis. Patient started on induction therapy with steroids and mesalamine tablets with improvemen patient discharged on t. Budesonide and oral mesalamine Rx. Thrombosed external hemorrhoids noted on colonoscopy. Patient instructed to follow-up with colorectal surgeon outpatient. Persistent blood-streaked diarrhea at home. Increasing weakness noted last week on follow-up with PCP. No chest pain, no shortness of breath. 2 days ago, patient noted worsening left-sided abdominal discomfort with fever 100.1. Nausea symptoms. Patient directed to ER by PCP. Solu-Medrol administered at the ER. 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 Admission Exam Per Admitting Provider Physical Exam Physical Exam: GENERAL: Comfortable, slightly anxious, no respiratory distress SKIN: Pallor, warm HEENT: Pale palpebral conjunctivae, no ptosis, dry buccal mucosa NECK : Supple, no tenderness CHEST : CTA, no tenderness HEART : RRR, no obvious murmurs ABDOMEN: Some distention, hypogastric tenderness EXTREMITIES : No LE swelling/tenderness, no other conspicuous deformities noted NEUROLOGIC : Coherent, no facial asymmetry, no other gross focality Principal Diagnosis Ulcerative colitis Hemorrhoids Discharge Data Allergies Allergy/AdvReac Type Severity Reaction Status Date / Time Penicillins AdvReac Unknown Verified 01/08/22 21:48 Consultations 01/09/22 04:14 ED Decision to Admit Stat 01/09/22 09:20 Consult Gastroenterology Routine Procedures Performed Laboratory Results WBC 6.54 K/ul (4.8-10.8) 01/15/22 05:24 RBC 3.76 M/uL (3.93-5.22) L 01/15/22 05:24 Hgb 10.5 g/dl (12.0-16.0) L 01/16/22 05:36 Hct 32.1 % (34.1-44.9) L 01/16/22 05:36 MCV 85.4 fL (80.0-100.0) 01/15/22 05:24 MCH 27.1 pg (25.0-34.0) 01/15/22 05:24 MCHC 31.8 g/dL (32.0-36.0) L 01/15/22 05:24 RDW Std Deviation 42.8 fL (36.4-46.3) 01/15/22 05:24 RDW Coeff of Gregory 13.8 % (11.5-14.5) 01/15/22 05:24 Plt Count 554 K/uL (130-400) H 01/15/22 05:24 MPV 9.6 fL (9.4-12.3) 01/15/22 05:24 Immature Gran % (Auto) 2.1 % 01/15/22 05:24 Neut % (Auto) 50.2 % 01/15/22 05:24 Lymph % (Auto) 33.8 % 01/15/22 05:24 [place] % (Auto) 11.5 % 01/15/22 05:24 Eos % (Auto) 2.1 % 01/15/22 05:24 Baso % (Auto) 0.3 % 01/15/22 05:24 Neut # (Auto) 3.28 K/uL (1.4-6.5) 01/15/22 05:24 Lymph # (Auto) 2.21 K/uL (1.2-3.4) 01/15/22 05:24 [place] # (Auto) 0.75 K/uL (0.24-0.82) 01/15/22 05:24 Eos # (Auto) 0.14 K/uL (0-0.50) 01/15/22 05:24 Baso # (Auto) 0.02 K/uL (0-0.2) 01/15/22 05:24 Immature Gran # (Auto) 0.14 K/uL (0.00-0.02) H 01/15/22 05:24 Neutrophils % (Manual) 40 % 01/13/22 05:40 Lymphocytes % (Manual) 45 % 01/13/22 05:40 Monocytes % (Manual) 12 % 01/13/22 05:40 Myelocytes % (Man) 2 % 01/13/22 05:40 Plasma Cell % (Manual) 1 % 01/13/22 05:40 Neutrophils # (Manual) 1.58 K/uL (1.4-6.5) 01/13/22 05:40 Total Absolute Neuts 1.58 K/uL (1.4-6.5) 01/13/22 05:40 Lymphocytes # (Manual) 1.77 K/uL (1.2-3.4) 01/13/22 05:40 Total Abs Lymphocytes 1.81 K/uL (1.2-3.4) 01/13/22 05:40 Monocytes # (Manual) 0.47 K/uL (0.24-0.82) 01/13/22 05:40 Myelocytes # (Manual) 0.08 K/uL (0-0) H 01/13/22 05:40 Plasma Cell # (Manual) 0.04 K/uL (0-0) H 01/13/22 05:40 Toxic Vacuolation 1+ 01/10/22 05:58 Polychromasia 1+ 01/14/22 05:34 Echinocytes 1+ 01/10/22 05:58 ESR 25 mm/hr (0-20) H 01/10/22 05:58 Sodium 135 mmol/L (136-145) L 01/16/22 05:36 Potassium 3.5 mmol/L (3.5-5.1) 01/16/22 05:36 Chloride 103 mmol/L (98-107) 01/16/22 05:36 Carbon Dioxide 26 mmol/L (21-32) 01/16/22 05:36 Anion Gap 6 (3-11) 01/16/22 05:36 BUN 12 mg/dl (6-23) 01/16/22 05:36 Creatinine 0.45 mg/dl (0.6-1.2) L 01/16/22 05:36 Est Cr Clr Drug Dosing 148.7 ml/min 01/16/22 05:36 Est GFR ( Amer) 139.3 ml/min 01/16/22 05:36 Est GFR (Non-Af Amer) 120.2 ml/min 01/16/22 05:36 BUN/Creatinine Ratio 26.7 (10-20) H 01/16/22 05:36 Glucose 84 mg/dl (70-99(Fasting)) 01/16/22 05:36 Lactate 0.4 mmol/L (0.4-2.0) 01/09/22 06:30 Calcium 7.8 mg/dl (8.5-10.1) L 01/16/22 05:36 Magnesium 2.1 mg/dl (1.7-2.4) 01/09/22 00:43 Total Bilirubin 0.4 mg/dl (0.2-1.0) 01/09/22 00:43 AST 18 U/L (13-39) 01/09/22 00:43 ALT 37 U/L (7-52) 01/09/22 00:43 Alkaline Phosphatase 64 U/L (34-104) 01/09/22 00:43 C-Reactive Protein 11.03 mg/dl (0-0.5) H 01/10/22 05:58 Total Protein 6.8 gm/dl (6.0-8.3) 01/09/22 00:43 Albumin 3.3 gm/dl (3.4-5.0) L 01/09/22 00:43 Globulin 3.5 gm/dl (2.5-4.0) 01/09/22 00:43 Albumin/Globulin Ratio 0.9 (0.9-2) 01/09/22 00:43 Urine Color Yellow 01/09/22 Unknown Urine Appearance Clear (Clear) 01/09/22 Unknown Urine pH 5.5 (4.5-7.5) 01/09/22 Unknown Ur Specific [place] > 1.045 (1.000-1.030) H 01/09/22 Unknown Urine Protein Negative (Negative) 01/09/22 Unknown Urine Glucose (UA) Negative (Negative) 01/09/22 Unknown Urine Ketones 4+ (Negative) H 01/09/22 Unknown Urine Blood Negative (Negative) 01/09/22 Unknown Urine Nitrite Negative (Negative) 01/09/22 Unknown Urine Bilirubin Negative (Negative) 01/09/22 Unknown Urine Urobilinogen Negative (Negative) 01/09/22 Unknown Ur Leukocyte Esterase Negative (Negative) 01/09/22 Unknown Urine Test Negative (Negative) 01/09/22 Unknown Stl C. cayetanensis PCR Not Detected (NotDetected) 01/09/22 18:00 Stool Rotavirus A PCR Not Detected (NotDetected) 01/09/22 18:00 Stl Adenov F 40/41 PCR Not Detected (NotDetected) 01/09/22 18:00 Stool Astrovirus (PCR) Not Detected (NotDetected) 01/09/22 18:00 Stool Campylobacter PCR Not Detected (NotDetected) 01/09/22 18:00 Stl C. diff Tox B Gene Cancelled 01/09/22 18:00 Stl C. diff Tox A/B PCR Not Detected (NotDetected) 01/09/22 18:00 Stool Cryptosporidium PCR Not Detected (NotDetected) 01/09/22 18:00 Stl E.coli Shiga Tox PCR Not Detected (NotDetected) 01/09/22 18:00 Stl Enterotoxigenic E PCR Not Detected (NotDetected) 01/09/22 18:00 Stool EPEC (PCR) Not Detected (NotDetected) 01/09/22 18:00 Stool EAEC (PCR) Not Detected (NotDetected) 01/09/22 18:00 Stl E. histolytica PCR Not Detected (NotDetected) 01/09/22 18:00 Stool Giardia Lamblia PCR Not Detected (NotDetected) 01/09/22 18:00 Stool Salmonella PCR Not Detected (NotDetected) 01/09/22 18:00 Stool Sapovirus (PCR) Not Detected (NotDetected) 01/09/22 18:00 Stl P. shigelloides PCR Not Detected (NotDetected) 01/09/22 18:00 Stl Shigella/EIEC PCR Not Detected (NotDetected) 01/09/22 18:00 St Y.enterocolitica PCR Not Detected (NotDetected) 01/09/22 18:00 Stool Vibrio (PCR) Not Detected (NotDetected) 01/09/22 18:00 Stl Vibrio cholerae PCR Not Detected (NotDetected) 01/09/22 18:00 Stl Norovirus GI/GII PCR Not Detected (NotDetected) 01/09/22 18:00 SARS-CoV-2 (PCR) NEGATIVE (Negative) 01/09/22 Unknown Hepatitis A IgM Ab NON-REACTIVE (NON-REACTIVE) 01/10/22 10:13 Hepatitis A Ab Total NON-REACTIVE (NON-REACTIVE) 01/13/22 05:50 Hep Bs Antigen NON-REACTIVE (NON-REACTIVE) 01/10/22 10:13 Hep Bs Ag Confirmation TNP 01/10/22 10:13 Hep B Core IgM Ab NON-REACTIVE (NON-REACTIVE) 01/10/22 10:13 Hepatitis Be Antibody Reactive A 01/13/22 05:50 Hepatitis C Ab (EIA) NON-REACTIVE (NON-REACTIVE) 01/10/22 10:13 Hep C Ab Signal/Cutoff 0.03 (<1.00) 01/10/22 10:13 Influenza Type A (PCR) Negative (Neg) 01/09/22 Unknown Influenza Type B (PCR) Negative (Neg) 01/09/22 Unknown RSV (RT-PCR) Negative (Neg) 01/09/22 Unknown TB Test (QFT) Gold Plus NEGATIVE (NEGATIVE) 01/10/22 10:13 TB Test (QFT) Nil 0.04 IU/mL 01/10/22 10:13 TB Test Mitogen - Nil 8.87 IU/mL 01/10/22 10:13 TB Test Ag - Nil 1 0.00 IU/mL 01/10/22 10:13 TB Test Ag - Nil 2 0.00 IU/mL 01/10/22 10:13 Impressions Chest X-Ray 01/08/22 23:55 XR chest 1V portable HISTORY: Fever COMPARISON: None. FINDINGS: The lungs are clear. Cardiac silhouette is normal in size. No pleural effusions. No pneumothorax. IMPRESSION: No acute process. ACT 112: Negative or not required by law. Electronically signed by: Rafael Teague M.D. 01/09/2022 8:43 AM Abdomen/Pelvis CT 01/09/22 02:59 CT abd pelvis IV con only CLINICAL HISTORY: ulcerative colitis, fever TECHNIQUE: Helical axial images of the abdomen and pelvis were obtained and displayed. Automated dose lowering techniques and/or adjustment according to patient size were utilized for this exam. This exam was performed with intravenous contrast. CT DOSE: 405.70 mGy.cm COMPARISON: Comparison is made to CT abdomen pelvis 12/27/2021 FINDINGS: Lower chest: No acute abnormality Liver: Unremarkable. No focal lesions are seen. Gallbladder and biliary tree: No calcified gallstones. Normal caliber wall. No intra- or extrahepatic biliary ductal dilation. Pancreas: Unremarkable, no focal lesions. Spleen: Unremarkable. Adrenals: Unremarkable. Kidneys and ureters: Unremarkable. Bladder: Unremarkable. Reproductive organs: Wall thickening and edema with surrounding fat stranding is seen involving the distal transverse colon, descending, and sigmoid colon. The appendix is normal. Bowel: Unremarkable. Lymph nodes Retroperitoneal: Subcentimeter lymph nodes are noted. Pelvic: Unremarkable. Mesenteric: Subcentimeter lymph nodes are noted. Peritoneum: Mild fat stranding is again noted in the left hemicolon. Vessels: Unremarkable. Abdominal wall: Unremarkable. Bones: Unremarkable. IMPRESSION: Redemonstration of colitis in the descending and sigmoid colon in this patient with history of ulcerative colitis. No fluid collection or pneumoperitoneum. ACT 112: Negative or not required by law. Electronically signed by: Eder Marinelli M.D. 01/09/2022 10:03 AM Ordered Studies 01/09/22 02:59 CT Abd and Pelvis [CT abd pelvis IV con only] Urgent Hospital Course (1) Ulcerative colitis: Ulcerative colitis --CT ABD: Redemonstration of colitis in the descending and sigmoid colon in this patient with history of ulcerative colitis. No fluid collection or pneumoperitoneum. --Colonoscopy with biopsy was done on 12/27. --Pathology: The biopsies show a chronic colitis with severe activity (ulceration present). While not completely specific, the pattern of inflammation is in keeping with inflammatory bowel disease. Clinical correlation is recommended. --Stool Studies: Negative Continue on mesalamine 800 mg 3 times daily, Rowasa 4 g per rectal at night. -On budesonide held Started on prednisone taper course Tolerating diet Continue PPI Will need to transition to biological agents--Currently held due to Insurance issues Will Completed ciprofloxacin and metronidazole 7 day course today Appreciate GI Input--Needs followup as outpatient Did not tolerate Questran--Refuses to continue Plan to discharge on Prednisone Taper course: 40mg daily x 1 week, 30mg daily x 1 week, 20mg daily x 1 week, 15mg daily x 1 week, 10mg daily x1 week, 5mg daily x 1 week. Advised to follow up with GI as outpatient (2) Hemorrhoids: Found to have thrombosed hemorrhoids on colonoscopy last admission. Lidocaine jelly and nitroglycerin topical Monitor CBC Plan DVT Px: SCDs Code Status Full code Disposition Home Total Time Total Time Spent Total Time Spent (In Minutes): 44 minutes Discharge Plan Discharge Items Patient Disposition: Home - Self-Care Reason For Visit: COLITIS, HYPOTENSION Discharge Diagnosis: Ulcerative colitis Hemorrhoids Activity: Per Instructions section Exercise/Sports: Gradually increase as tolerated Non-emergency contact: Primary Care Provider and Belt Changer Call non-emergency contact if: you have any medication questions, your symptoms worsen, your pain is concerning for you and you have a fever Follow-up/Referrals: [facility] [Other] ( Please call this number to arrange an appointment. ) [facility] [Other] ( [address], [place] [address] Please contact the office once you receive insurance approval. They are aware of your need to have a follow up appointment. ) Diet: Heart Healthy Addtl Attending Provider Instructions: Follow-up with your primary care physician at [facility] in 1 week. Please call for appointment Follow up with your Belt Changer Dr.Donald Speedy Parisi ([facility]) in 2-3 weeks. Prednisone Taper course Start taking Prednisone: 40mg daily x 1 week, 30mg daily x 1 week, 20mg daily x 1 week, 15mg daily x 1 week, 10mg daily x1 week, 5mg daily x 1 week. Seek immediate medical attention if your symptoms reoccur or worsen Please take all medications as instructed on discharge list below. Please call if you have any questions or problems. You can reach a [facility] hospitalist on duty at [facility] 24 hours a day by calling [phone] Pending Studies at Discharge: No Stand-Alone Forms: [facility], Smoking Cessation Medications and DC Order Prescriptions: New metronidazole 500 mg Tablet 500 mg PO TID Qty: 1 0RF ciprofloxacin HCl 500 mg Tablet 500 mg PO BID Qty: 1 0RF pantoprazole 40 mg Tablet,Delayed Release (Dr/Ec) 40 mg PO QAM Qty: 30 1RF lidocaine 5 % Ointment 1 applic EXT BID PRN (Reason: pain) Qty: 50 0RF prednisone 10 mg tablet 10 mg PO UD Qty: 77 0RF Rx Instructions: Prednisone Taper course: 40mg daily x 1 week, 30mg daily x 1 week, 20mg daily x 1 week, 15mg daily x 1 week, 10mg daily x1 week, 5mg daily x 1 week. prednisone 5 mg tablet 5 mg PO UD Qty: 12 0RF Rx Instructions: Prednisone Taper course: 40mg daily x 1 week, 30mg daily x 1 week, 20mg daily x 1 week, 15mg daily x 1 week, 10mg daily x1 week, 5mg daily x 1 week. Continued mesalamine 4 gram/60 mL enema 4 g SD HS Qty: 840 0RF mesalamine [Delzicol] 400 mg Capsule (With Del Rel Tablets) 800 mg PO TID Qty: 180 0RF Discontinued budesonide 9 mg capsule, extended release 9 mg PO DAILY Qty: 30 0RF Discharge Orders: Discharge Order (Routine); Ordered 01/16/22 Ordered By: Yasmany Spence Admission Data Admit Date/Time: 01/09/22 05:30 Attending Provider: Yasmany Spence Admit Provider: José Giles Primary Care Provider: PCP,NO Other Providers: José Giles ; Cezar Campos ; Dickson Restrepo ; Patience Lyon ; Karen Cadena ; Katelyn Anand ; dEie Jaramillo ; Tal Green ; Andrew Winslow ; Rosey Pruitt ; Max Chin ; Alexey Staples ; Louise King ; Jyoti Mao ; Daryl Lezama ; Arron Parisi ; Jeana Poole ; Catherine Bernaeb ; Tia Mcintosh ; Keisha Mclaughlin ; Tyler Montenegro ; Prem An ; Pollo Doan ; Issac Calderon ; Charmaine Cagle ; Lisa Correa Jr
== END 2022-01-16 15:25 | disposition home or self-care (01) | DRG 387 ==
LOC: ED 21:37 → 2N 01-09 05:30 → SUATTDRO 01-09 05:30 → 2N 01-09 12:17
DX: K51.90 Ulcerative colitis, unspecified, without complications; K64.5 Perianal venous thrombosis; E87.6 Hypokalemia; Z88.0 Allergy status to penicillin; Z79.52 Long term (current) use of systemic steroids